=== PATIENT | female | born 1955 | race Caucasian/White ===

== ENCOUNTER 2023-12-17 09:22 | Outpatient (OUT) | payer BC, SELFPAY ==
--- NOTE | 2023-12-17 09:29 | MM_ITS ---
Patient Name: PRANAV KEMP MR#: [id number] : 1955 Exam Date: 12/17/2023 Ordering Doctor: DR KRYS SILVA M.D. RADIOLOGY REPORT PROCEDURE: MM TOMOSYNTHESIS DIAGNOSTIC BI COMPARISON: MG MAMM DIAGNOSTIC 3D ИВАН CAD, 12/11/2021. MG MAMM DX 3D LT CAD, 06/09/2021. MG MAMM SCREEN ИВАН W CAD, 11/07/2020. MG MAMM DIAGNOSTIC 3D ИВАН CAD, 12/16/2022. INDICATIONS: Ductal Carcinoma In Situ Left Breast D05.12 Calculator Name NCI Breast Cancer Risk Assessment Tool 5 Year Breast Cancer Risk 1.90% Lifetime Breast Cancer Risk 5.50% Personal Breast Cancer No Personal Ovarian Cancer No Treatments None Family Cancers Father with stomache cancer at age 92. LOCATION: [facility] BREAST COMPOSITION: Scattered areas fibroglandular density. FINDINGS: DIAGNOSTIC CATEGORY 2--BENIGN FINDING: RIGHT BREAST: No significant suspicious finding. Scattered benign-appearing calcifications are present. No significant change has occurred. LEFT BREAST: No significant suspicious finding. Scattered benign-appearing calcifications are present. Stable scarring anterior subareolar breast. No significant change has occurred. RECOMMENDATIONS: ROUTINE MAMMOGRAM AND CLINICAL EVALUATION IN 12 MONTHS. PLEASE NOTE: A NORMAL MAMMOGRAM DOES NOT EXCLUDE THE POSSIBILITY OF BREAST CANCER. A CLINICALLY SUSPICIOUS PALPABLE LUMP SHOULD BE BIOPSIED. Dictated by: Arcenio Cortez M.D. on 12/17/2023 at 10:13 Approved by: Arcenio Cortez M.D. on 12/17/2023 at 10:17
== END 2023-12-17 09:23 | disposition home or self-care (01) ==
LOC: MAMMO 09:23
PROVIDERS: PCP Family Medicine; Visit Provider Radiology Radiation Oncology
DX: D05.12 Intraductal carcinoma in situ of left breast (principal); Z80.0 Family history of malignant neoplasm of digestive organs
CPT/HCPCS: 77066; G0279

== ENCOUNTER 2024-05-22 16:02 | Outpatient (OUT) | payer BC, SELFPAY ==
--- NOTE | 2024-05-22 16:12 | XR_ITS ---
The [address] [address] Patient Name: PRANAV KEMP MRN: [id number] date: 1955 Sex: F Assigned Patient Location: [facility] Current Patient Location: Accession/Order Number: [id number] Exam Date: 05/22/2024 16:15 Report Date: 05/23/2024 08:28 At the request of: YESICA MCGUIRE Procedure: XR chest 2V EXAMINATION: XR chest 2V HISTORY: chest discomfort R07.89 COMPARISON: 12/16/2020 TECHNIQUE: PA and lateral FINDINGS: LUNGS: No significant pulmonary parenchymal abnormalities. Stable left lung nodule, size and density suggests granulomas VASCULATURE: No increased pulmonary vasculature. PLEURA: No pneumothorax, effusion, or pleural thickening. CARDIAC: No cardiomegaly or cardiac silhouette abnormality. MEDIASTINUM: No visible mass or adenopathy. BONES: Mild degenerative disc disease and spondylosis without visible acute abnormalities. OTHER: Negative. XR/XR chest 2V IMPRESSION: No acute cardiopulmonary process Electronically authenticated by: YO CHAMBERS Date: 05/23/2024 08:28
== END 2024-05-22 16:03 | disposition home or self-care (01) ==
LOC: RAD 16:02
PROVIDERS: PCP Family Medicine; Visit Provider Family Medicine
DX: R07.89 Other chest pain (principal)
CPT/HCPCS: 71046

== ENCOUNTER 2024-09-11 14:59 | Outpatient (OUT) | payer BC, SELFPAY ==
--- NOTE | 2024-09-11 15:11 | XR_ITS ---
The [address] [address] Patient Name: PRANAV KEMP MRN: [id number] date: 1955 Sex: F Assigned Patient Location: [facility] Current Patient Location: Accession/Order Number: [id number] Exam Date: 09/11/2024 15:16 Report Date: 09/14/2024 05:57 At the request of: YESICA MCGUIRE Procedure: XR abdomen 1V EXAMINATION: XR abdomen 1V HISTORY: Left Flank Pain, History Of Renal Calculi COMPARISON: XR abdomen 01/05/2022 FINDINGS: KIDNEY/URETER - RIGHT: No visible renal or ureteral calcifications. KIDNEY/URETER - LEFT: No visible renal or ureteral calcifications. PELVIS: No visible ureteral stones. BOWEL: Large amount of stool throughout the bowel. BONES: No acute abnormality. OTHER: Negative. No abnormal gaseous collections. XR/XR abdomen 1V IMPRESSION: 1. No appreciable urinary tract calculi. 2. Evaluation limited by large amount of dense overlying bowel content. Electronically authenticated by: LAZARUS NAVARRO Date: 09/14/2024 05:57
--- OUTSIDE RECORDS SUMMARY | 2024-09-11 15:25 | XMS_ITS | CCD ---
Author Organization [facility] Care Team Providers Care Rotary Driller Name Role Phone Yesica Mcguire MD Primary Care Provider MD Yesica Mcguire Primary Care Provider Community, Outreach Attending Provider [phone] MD Yesica Mcguire Primary Care Provider MD Chica Duenas Jr Emergency Provider MD Edgar Beebe Admit Provider MD Edgar Beebe Attending Provider Yesica Mcguire MD Primary Care Provider Yesica Mcguire MD Primary Care Provider LASHELL PEÑA Referring Unavailable YEISCA MCGUIRE Primary Care Unavailable RAFAEL LEWIS Attending Unavailable SHARRI JOEL Attending Unavailable Angy Hermosillo Referring Unavailable YESICA MCGUIRE Primary Care Unavailable BISI FARIAS Admitting Unavailable CHICA DUENAS JR Referring Unavailable YESICA MCGUIRE Primary Care Unavailable CLYDE HAZEL Attending UnavailJESSE Maldonado Consulting Unavailable Yesica Mcguire MD Primary Care Provider [phone] [address] YESICA MCGUIRE Primary Care Unavailable MARTÍNEZ JARAMILLO Attending Unavailable CARLOS MURRIETA Consulting UnavailMARTÍNEZ Kohler Admitting Unavailable LAZARUS COELLO Unavailable DR YESICA MCGUIRE Primary Care Unavailable SHIRA, DR KRYS Wilson Consulting Unavailable SHIRA, DR KRYS Wilson Admitting Unavailable SHIRA, DR KRYS Wilson Attending Unavailable MELANIE, DR LAZARUS Elizalde Consulting Unavailable DR YESICA MCGUIRE Admitting Unavailable SHAYLA, DR YESICA Paula Attending Unavailable REDWATER, DR YO Arvizu Consulting Unavailable DR YESICA MCGUIRE Primary Care Unavailable DR YESICA MCGUIRE Consulting Unavailable Yesica Mcguire MD Yesica Mcguire Primary Care Provider Community, Outreach Attending Provider Yesica Mcguire MD Primary Care Provider [phone] YESICA MCGUIRE Primary Care Unavailable STEPHANIE GROVE Referring Unavaila ble STEPHANIE GROVE Attending Unavaila ble YESICA MCGUIRE Primary Care Unavailable ABHYANKAR ANDREA Referring Unavailable ABHYTRES HARGROVEEK Attending Unavailable YESICA MCGUIRE Primary Care Unavailable KRYS SILVA Attending Unavailable YESICA MCGUIRE Primary Care Unavailable KRYS SILVA Referring Unavailable MD Yesica Mcguire Attending Provider Yesica Mcguire Attending Unavailable Yesica Mcguire Admitting Unavailable Community, Outreach Admitting Unavailable Community, Outreach Attending Unavailable Yesica Mcguire Primary Care Unavailable MD Yesica Mcguire Attending Provider Allergies Allergy Classification Reported Allergen(s) Allergy Type Date of Onset Reaction(s) Facility (20 sources) Acetaminophen / Codeine; Translations: [ACETAMINOPHEN-CO DEINE] Drug Allergy 06-03-20 15 Rash, Hives [facility] (20 sources) bacitracin / neomycin / polymyxin b; Translations: [NEOMYCIN-BACITRA JIGNESH-POLYMYXIN] Drug Allergy 02-06-20 21 [facility] (20 sources) Paz; Translations: [BERRIES] Food Intolerance 10-27-19 14 Rash [facility] (20 sources) Cephalexin; Translations: [CEPHALEXIN] Drug Allergy 06-03-20 15 Hives, Itching [facility] (20 sources) ciprofibrate; Translations: [CIPROFIBRATE] Drug Allergy 02-06-20 Unknown [facility] (20 sources) Ciprofloxacin; Translations: [CIPROFLOXACIN] Drug Allergy 06-03-20 15 [facility] (20 sources) Codeine; Translations: [CODEINE] Drug Allergy 02-06-20 21 Unknown [facility] (20 sources) cultivated mushroom extract; Translations: [MUSHROOM] Drug Allergy 06-03-20 15 Rash [facility] (20 sources) grape extract; Translations: [GRAPE] Drug Allergy 06-03-20 GI Upset [facility] (20 sources) Latex; Translations: [LATEX] Drug Intolerance 06-03-20 Hives [facility] (20 sources) montelukast; Translations: [MONTELUKAST] Drug Allergy 02-06-20 21 Unknown [facility] (20 sources) Naproxen; Translations: [NAPROXEN] Drug Allergy 06-03-20 Mental Status Change [facility] (20 sources) peanut; Translations: [PEANUTS] Food Intolerance 06-03-20 Mental Status Change [facility] (20 sources) Procaine; Translations: [PROCAINE] Drug Allergy 06-03-20 Mental Status Change [facility] (20 sources) Shellfish; Translations: [SHELLFISH DERIVED] Drug Intolerance 06-03-20 Mental Status Change [facility] (20 sources) [place]; Translations: [STRAWBERRIES] Food Intolerance 06-03-20 Rash [facility] (20 sources) Sulfonamides (Antibiotic); Translations: [SULFA (SULFONAMIDE ANTIBIOTICS)] Drug Intolerance 06-03-20 Rash, Hives [facility] (20 sources) tree nut, unspecified; Translations: [TREE NUT] Drug Intolerance 06-03-20 Mental Status Change [facility] (20 sources) Triamcinolone; Translations: [TRIAMCINOLONE] Drug Allergy 02-06-20 Unknown [facility] (20 sources) Kenalog-H; Translations: [KENALOG-H] Drug Intolerance 06-03-20 Other: See Comments [facility] (9 sources) peanut allergenic extract; Translations: [peanut] Drug Allergy 06-30-20 Anaphylaxis [facility] (9 sources) strawberry allergenic extract; Translations: [[place]] Drug Allergy 06-30-20 Redness of Skin [facility] (8 sources) Sucralfate Drug Allergy 06-30-20 [facility] (8 sources) peas Allergy to substance 06-30-20 [facility] (8 sources) tuna oil Allergy to substance 06-30-20 Cramping of the Muscles [facility] (2 sources) Cephalexin Drug Allergy 10-24-20 Unknown [facility] (1 source) Ciprofloxacin Drug Allergy 10-24-20 [facility] (1 source) Codeine Drug Allergy 11-19-19 21 [facility] (1 source) Latex Drug allergy (disorder) 10-24-20 18 [facility] (1 source) Mushroom (edible) Drug allergy (disorder) [facility] (1 source) Naproxen Drug Allergy [facility] (1 source) Shellfish Drug allergy (disorder) 10-24-20 18 [facility] (1 source) Sucralfate Drug Allergy [facility] (1 source) Sulfonamides (Antibiotic) Drug allergy (disorder) 10-24-20 18 [facility] (1 source) Novocain Drug allergy (disorder) 10-24-20 18 [facility] (1 source) Acetaminophen / Codeine Drug Allergy Unknown [facility] (1 source) Bacitracin / Neomycin / Polymyxin B Drug Allergy Unknown [facility] (8 sources) Paz Propensity to adverse reactions 04-10-20 Unknown, [facility] (1 source) tree nut, unspecified Drug allergy Comment:peanut s [facility] Other (1 source) Singulair *ANTIASTHMATIC AND BRONCHODILATOR AGENTS Propensity to adverse reactions Unknown [facility] (1 source) Peanut-containing Drug Products Drug allergy 10-27-19 14 Unknown [facility] (1 source) Tylenol with Codeine #3 *ANALGESICS - OPIOID* Propensity to adverse reactions Unknown [facility] (1 source) Keflex *CEPHALOSPORINS* Propensity to adverse reactions Unknown [facility] (1 source) WALNUTS Propensity to adverse reactions Unknown [facility] (7 sources) Acetaminophen Drug Allergy 04-10-20 24 [facility] (7 sources) Bacitracin Drug Allergy 04-10-20 24 [facility] (7 sources) Cephalosporins (Antibiotic) Allergy to substance 04-10-20 [facility] (7 sources) Neomycin Drug Allergy 04-10-20 24 [facility] (7 sources) polymyxin B Allergy to substance 04-10-20 24 [facility] (7 sources) walnut Allergy to substance 04-10-20 24 [facility] (7 sources) Neosporin Original Allergy to substance 04-10-20 24 [facility] (7 sources) Singulair *ANTIASTHMATIC AND B Allergy to substance 04-10-20 24 [facility] (7 sources) Tylenol with Codeine #3 *ANALG Allergy to substance 04-10-20 24 [facility] Medications Current Medications Medication Drug Class(es) Dates Sig (Normalized) Sig (Original) acetaminophen 325 mg oral tablet (15 sources) Start: 07-02-2022 take 2 tablets by mouth every six hours as needed acetaminophen (TYLENOL) 325 mg tablet Take 2 tablets by mouth every 6 hours as needed for pain. 07/02/2022 Active Comment on above: Take 2 tablets by mo uth every 6 hours as needed for pain. Albuterol (20 sources) beta2-Adrenergic Agonist Start: 04-10-2024 take 1 puff(s) by inhalation every four to six hours Albuterol Sulfate Active 2 PUFF INHALATION EVERY 4-6 HOURS 6.7 April 09, 2024 11:00pm Start: 04-10-2024 take 1 puff(s) by in halation every four to six hours Albuterol Sulfate Active 2 PUFF INHALATION EVERY 4-6 HOURS 6.7 April 10, 2024 12:00am Start: 08-29-2020 albuterol HFA (PROVENTIL HFA, VENTOLIN HFA) 90 mcg/actuation inhaler Inhale as instructed. 08/29/2020 Active Comment on above: Inhale as instructed . azithromycin 250 mg oral tablet (16 sources) Macrolide Antimicrobial Start: 04-21-2024 End: 08-22-2024 Azithromycin Active 0 PO .COMPLEX August 22, 2024 3:25pm For 250 mg dose pack: take 500 mg today (day 1), then 250 mg for 4 days (days 2-5) PO Start: 04-10-2024 End: 04-21-2024 Azithromycin Discontinued 0 PO .COMPLEX 6 Ayah 16th, 2024 11:00pm April 21, 2024 10:51am For 250 mg dose pack: take 500 mg today (day 1), then 250 mg for 4 days (days 2-5) PO Start: 04-10-2024 End: 04-21-2024 Azithromycin Discontinued 0 PO .COMPLEX April 10, 2024 12:00am April 21, 2024 11:51am For 250 mg dose pack: take 500 mg today (day 1), then 250 mg for 4 days (days 2-5) PO Start: 04-10-2024 Azithromycin A ctive 0 PO .COMPLEX April 10, 2024 12:00am For 250 mg dose pack: take 500 mg today (day 1), then 250 mg for 4 days (days 2-5) PO Loratadine (20 sources) loratadine (CLAR ITIN ORAL) Take by mouth. Active loratadine (CLAR ITIN ORAL) Take by mouth. 0 Suspended loratadine (CLAR ITIN ORAL) Take by mouth. 0 Active Comment on above: Take by mouth. nitrofurantoin, macrocrystals 25 mg / nitrofurantoin, monohydrate 75 mg oral capsule (3 sources) Nitrofuran Antibacterial Start: take 100 mg by mouth every twelve hours at mealtime Nitrofurantoin Monohyd/M-Cryst Active 100 MG PO Every 12 hours 10 August 14, 2024 11:00pm must administer with a meal/food phenylephrine hydrochloride 25 mg/ml ophthalmic solution (1 source) alpha-1 Adrenergic Agonist Start: End: PHENYLephrine 2.5 % 1 Drop (AK-DILATE, LETY-SYNEPHRINE) tamoxifen 20 mg oral tablet (20 sources) Estrogen Agonist/Antagonist Start: End: take 20 mg by mouth once daily Tamoxifen Active 20 MG PO Daily June 30, 2022 11:00pm Comment on above: Take 1 tablet (20 mg ) by mouth once daily. tropicamide 10 mg/ml ophthalmic solution (2 sources) Anticholinergic Start: End: tropicamide 1 % 1 Drop (MYDRIACYL) Start: 01-23-2022 End: 01-24-2022 tropicamide 1 % 1 Drop (MYDR IACYL) Completed/Discontinued Medications Medication Drug Class(es) Dates Sig (Normalized) Sig (Original) losartan potassium 25 mg oral tablet (20 sources) Angiotensin 2 Receptor Luda Start: 10-13-2021 End: 04-10-2024 take 25 mg by mouth once daily Losartan Discontinued 25 MG PO Daily June 30, 2022 11:00pm April 10, 2024 2:05pm Comment on above: Take 25 mg by mouth once daily. oxyCODONE hydrochloride 5 mg oral tablet (1 source) Opioid Agonist Start: 07-04-2022 End: 07-17-2022 take 1 tablet by mouth every eight hours as needed for pain oxyCODONE IR (ROXICODONE) 5 mg immediate release tablet Indications: Postoperative pain Take 1 tablet by mouth every 8 hours as needed for pain. 5 tablet 0 07/04/2022 07/17/2022 Discontinued (Course of therapy completed) Comment on above: Take 1 tablet by juliet th every 8 hours as needed for pain. pantoprazole 40 mg delayed release oral tablet (20 sources) Proton Pump Inhibitor Start: 09-09-2022 End: 04-10-2024 take 1 tablet by mouth once daily Pantoprazole Discontinued 1 TAB PO Daily April 09, 2024 11:00pm April 10, 2024 2:05pm [employer] tablet once a day; Note: Source Status: Refill; Refills: 3; Provider: Shayla Paula Start: 07-04-2022 End: 10-02-2022 take 1 tablet by mouth twice daily before mealtime pantoprazole DR (PROTONIX) 40 mg tablet Take 1 tablet by mouth twice daily before meals (0600/1600). 60 tablet 2 07/04/2022 10/02/2022 Active Comment on above: Take 1 tablet by juliet th twice daily before meals (0600/1600). Take 1 tablet by juliet th once daily. Problems Active Problems Problem Classification Problem Date Documented Da te Episodic/Chronic Biliary tract disease (13 sources) Calculus of bile duct with cholecystitis; Translations: [Calculus of bile duct with cholecystitis, unspecified, without obstruction] Onset: 2 Resolved: 2 07-01-2022 Episodic Blindness and vision defects (2 sources) Bilateral hyperopia of eyes; Translations: [Hypermetropia, bilateral] 07-30-2023 Episodic Cancer of breast (15 sources) Malignant neoplasm of female breast; Translations: [Malignant neoplasm of unspecified site of left female breast] Onset: 3 Chronic Cataract (20 sources) Nuclear sclerosis; Translations: [Age-related nuclear cataract, bilateral] Onset: 5 06-03-2015 Chronic Esophageal disorders (11 sources) Gastroesophageal reflux disease without esophagitis; Translations: [Gastro-esophageal reflux disease without esophagitis] Chronic Esophageal disorders (2 sources) Esophagitis; Translations: [Esophagitis] Onset: 2 Episodic Essential hypertension (9 sources) Essential hypertension; Translations: [Essential (primary) hypertension] 04-10-2024 Chronic Glaucoma (20 sources) Anatomical narrow angle, bilateral; Translations: [Anatomical narrow angle borderline glaucoma] Onset: 5 06-03-2015 Chronic Nonspecific chest pain (7 sources) Chest discomfort; Translations: [Other chest pain] 05-22-2024 Episodic Other aftercare (4 sources) Long-term current use of tamoxifen; Translations: [senior living (current) use of selective estrogen receptor modulators (SERMs)] Episodic Other aftercare (2 sources) Patient encounter status; Translations: [Other retirement (current) drug therapy] Episodic Other aftercare (1 source) Long-term current use of drug therapy; Translations: [Other hide washer (current) drug therapy] 07-31-2024 Episodic Other circulatory disease (1 source) Elevated blood pressure; Translations: [Elevated blood-pressure reading, without diagnosis of hypertension] Episodic Other gastrointestinal disorders (1 source) Abnormal feces; Translations: [Other fecal abnormalities] Episodic Other nervous system disorders (1 source) Other acute postprocedural pain; Translations: [Postoperative pain] Onset: 2 Episodic Other nutritional; endocrine; and metabolic disorders (15 sources) Obese class I; Translations: [Obesity, unspecified] Onset: 2 07-03-2022 Chronic Other upper respiratory infections (10 sources) Acute maxillary sinusitis; Translations: [Acute maxillary sinusitis, unspecified] 04-10-2024 Episodic Phlebitis; thrombophlebitis and thromboembolism (1 source) Thrombophlebitis of superficial veins of lower extremity; Translations: [Phlebitis and thrombophlebitis of superficial vessels of left lower extremity] Episodic Rehabilitation care; fitting of prostheses; and adjustment of devices (2 sources) Patient encounter status; Translations: [Encounter for fitting and adjustment of other specified devices] Onset: 2 Chronic Residual codes; unclassified (3 sources) History of wnofmes-dejqxuop-ubnsl t laser iridotomy; Translations: [Other specified postprocedural states] Episodic Residual codes; unclassified (1 source) Family history of malignant neoplasm of digestive organs; Translations: [FAM HX MALIG NEOPLASM DIGESTIV ORGN] Onset: 3 Episodic Residual codes; unclassified (1 source) Family history of diabetes mellitus; Translations: [Family history of diabetes mellitus] Episodic Retinal detachments; defects; vascular occlusion; and retinopathy (1 source) Hypertensive retinopathy; Translations: [Hypertensive retinopathy, left eye] Chronic Urinary tract infections (6 sources) Urinary tract infectious disease; Translations: [Urinary tract infection, site not specified] 08-22-2024 Episodic Past or Other Problems Problem Classification Problem Date Documented Date Episodic/Chronic Abdominal pain (4 sources) Unspecified abdominal pain; Translations: [UNSPECIFIED ABDOMINAL PAIN] Onset: 01-05-2022 Episodic Disorders of teeth and jaw (3 sources) Jaw pain; Translations: [JAW PAIN] Onset: 08-18-2022 Episodic E Codes: Fall (1 source) Fall on same level from slipping, tripping and stumbling without subsequent striking against object, initial encounter; Translations: [FALL SAME LVL SLIP NO STRK OBJ INIT] Onset: 08-31-2022 Episodic Fluid and electrolyte disorders (15 sources) Hypokalemia; Translations: [Hypokalemia] Onset: 07-03-2022 07-03-2022 Episodic Other aftercare (1 source) Other hide washer (current) drug therapy; Translations: [OTH HALF-WAY CURRENT DRUG THERAPY] Onset: 08-31-2022 Episodic Residual codes; unclassified (18 sources) History of surgical procedure on eye proper using laser; Translations: [Other specified postprocedural states] Onset: 06-03-2015 06-03-2015 Episodic Residual codes; unclassified (3 sources) Other specified postprocedural states; Translations: [Other states following surgery of eye and adnexa] Onset: 06-03-2015 06-03-2015 Episodic Superficial injury; contusion (2 sources) Contusion of other part of head, initial encounter; Translations: [Contusion of lip, initial encounter] Onset: 08-31-2022 Episodic Results Test Name Value Interpretation Reference Range Facility Laboratory - Chemistry and C hemistry - challengeon 08-22-2024 Bilirubin Ql (U) Negative [facility] Glucose (U) [Mass/Vol] Negative Fi [facility] Ketones Ql (U) Negative [facility] pH (U) 5 [pH] [facility] Specific gravity (U) [Rel density] 1.000 [facility] Urobilinogen (U) [Mass/Vol] 0.2 mg/dL [facility] Laboratory - Microbiology an d Antimicrobial susceptibilityOrdered By: Yesica Mcguire on 08-22-2024 Bacteria identified Cx Nom (U) Strep agalactiae - (group b) Abnormal [facility] Laboratory - Specimen inform ationon 08-22-2024 Appearance (U) clear [facility] Color (U) yellow [facility] Laboratory - Urinalysison Leukocyte esterase Test strip Ql (U) ++ [facility] Nitrite Ql (U) Negative [facility] Protein Ql (U) Negative [facility] No Panel Informationon 08-22 Urine Occult Blood Negative [facility] Urine Cultureon 08-22-2024 Bacteria identified Cx Nom (U) ORGANISM: Strep agalactiae - (group b) (O:STRAGA) [place] Count 75,000 Organism Comments Organism not Routinely Tested for Susceptibilities PERFORMED BY: [facility] [address] [place] [address] PATHOLOGIST MINERAL SURVEYOR KAREN RATLIFF M.D. Normal [facility] Comment on above: Performed By: #### C UU #### [facility] [address] Laboratory - Chemistry and C hemistry - challengeon 08-15-2024 Bilirubin Ql (U) Negative [facility] Glucose (U) [Mass/Vol] Negative [facility] Ketones Ql (U) Negative [facility] pH (U) 5 [pH] [facility] Specific gravity (U) [Rel density] 1.005 [facility] Urobilinogen (U) [Mass/Vol] 0.2 mg/dL [facility] Laboratory - Specimen inform ationon 08-15-2024 Appearance (U) cloudy [facility] Color (U) yellow [facility] Laboratory - Urinalysison Leukocyte esterase Test strip Ql (U) ++ [facility] Nitrite Ql (U) Negative [facility] Protein Ql (U) Negative [facility] No Panel Informationon 08-15 Urine Occult Blood Negative [facility] OCT MACULA CIRRUS OU (BOTH E YES)on 07-31-2024 [facility] Radiology Study observation (narrative) [facility] Basophils Auto (Bld) [#/Vol] on 07-28-2024 Basophils (Bld) [#/Vol] 0.08 10*3/uL <0.11 [facility] Basophils/100 WBC Auto (Bld) on 07-28-2024 Basophils/100 WBC (Bld) 1.1 % F [facility] Blood manual differential co mment interpretation narrativeon 07-28-2024 Manual differential comment Spike (Bld) [Interp] Auto [facility] CBC W Auto Differential pane l (Bld)on 07-28-2024 Basophils (Bld) [#/Vol] 0.08 10*3/uL Normal <0.11 [facility] Comment on above: Order Comment: Speci men Type: BLOOD SPECIMEN Ordering Facility: [facility] Address: [address] [place] [address] Performed By: #### 5 7021-8 #### [facility] CLIA [id number] [address] [place] [address] Basophils/100 WBC (Bld) 1.1 % Normal C [facility] Comment on above: Order Comment: Speci men Type: BLOOD SPECIMEN Ordering Facility: [facility] Address: [address] [place] [address] Performed By: #### 5 7021-8 #### [facility] CLIA [id number] [address] [place] [address] Differential cell count method Nom (Bld) Auto Normal [facility] Comment on above: Order Comment: Speci men Type: BLOOD SPECIMEN Ordering Facility: [facility] Address: [address] [place] [address] Performed By: #### 5 7021-8 #### [facility] CLIA [id number] [address] [place] [address] Eosinophils (Bld) [#/Vol] 0.23 10*3/uL Normal <0.46 [facility] Comment on above: Order Comment: Speci men Type: BLOOD SPECIMEN Ordering Facility: [facility] Address: [address] [place] [address] Performed By: #### 5 7021-8 #### [facility] CLIA [id number] [address] [place] [address] Eosinophils/100 WBC (Bld) 3.2 % Normal [facility] Comment on above: Order Comment: Speci men Type: BLOOD SPECIMEN Ordering Facility: [facility] Address: [address] [place] [address] Performed By: #### 5 7021-8 #### [facility] CLIA [id number] [address] [place] [address] Erythrocyte distribution width (RBC) [Ratio] 12.7 % Normal 11.5-15.0 [facility] Comment on above: Order Comment: Speci men Type: BLOOD SPECIMEN Ordering Facility: [facility] Address: [address] [place] [address] Performed By: #### 5 7021-8 #### [facility] CLIA [id number] [address] [place] [address] Hematocrit (Bld) [Volume fraction] 35.5 % Low 36.0-46.0 [facility] Comment on above: Order Comment: Speci men Type: BLOOD SPECIMEN Ordering Facility: [facility] Address: [address] [place] [address] Performed By: #### 5 7021-8 #### [facility] CLIA [id number] [address] [place] [address]27 Hemoglobin (Bld) [Mass/Vol] 12.0 g/dL Normal 11.5-15.5 [facility] Comment on above: Order Comment: Speci men Type: BLOOD SPECIMEN Ordering Facility: [facility] Address: [address] [place] [address] Performed By: #### 5 7021-8 #### [facility] CLIA [id number] [address] [place] [address] Immature granulocytes (Bld) [#/Vol] 10*3/uL Normal <0.10 [facility] Comment on above: Order Comment: Speci men Type: BLOOD SPECIMEN Ordering Facility: [facility] Address: [address] [place] [address] Performed By: #### 5 7021-8 #### [facility] CLIA [id number] [address] [place] [address] Immature granulocytes/100 WBC (Bld) 0.3 % Normal [facility] Comment on above: Order Comment: Speci men Type: BLOOD SPECIMEN Ordering Facility: [facility] Address: [address] [place] [address] Performed By: #### 5 7021-8 #### [facility] CLIA [id number] [address] [place] [address] 68455 Lymphocytes (Bld) [#/Vol] 2.14 10*3/uL Normal 1.00-4.00 [facility] Comment on above: Order Comment: Speci men Type: BLOOD SPECIMEN Ordering Facility: [facility] Address: [address] [place] [address] Performed By: #### 5 7021-8 #### [facility] CLIA [id number] [address] [place] [address] 57048 Lymphocytes/100 WBC (Bld) 29.9 % Normal [facility] Comment on above: Order Comment: Speci men Type: BLOOD SPECIMEN Ordering Facility: [facility] Address: [address] [place] [address] Performed By: #### 5 7021-8 #### [facility] CLIA [id number] [address] [place] [address] 43742 MCH (RBC) [Entitic mass] 31.3 pg Normal 26.0-34.0 [facility] Comment on above: Order Comment: Speci men Type: BLOOD SPECIMEN Ordering Facility: [facility] Address: [address] [place] [address] Performed By: #### 5 7021-8 #### [facility] CLIA [id number] [address] [place] [address] 27719 MCHC (RBC) [Mass/Vol] 33.8 g/dL Normal 30.5-36.0 [facility] Comment on above: Order Comment: Speci men Type: BLOOD SPECIMEN Ordering Facility: [facility] Address: [address] [place] [address] Performed By: #### 5 7021-8 #### [facility] CLIA [id number] [address] [place] [address] 48906 MCV (RBC) [Entitic vol] 92.7 fL Normal 80.0-100.[address] [facility] Comment on above: Order Comment: Speci men Type: BLOOD SPECIMEN Ordering Facility: [facility] Address: [address] [place] [address] Performed By: #### 5 7021-8 #### [facility] CLIA [id number] [address] [place] [address] 74061 Monocytes (Bld) [#/Vol] 0.50 10*3/uL Normal <0.87 [facility] Comment on above: Order Comment: Speci men Type: BLOOD SPECIMEN Ordering Facility: [facility] Address: [address] [place] [address] Performed By: #### 5 7021-8 #### [facility] CLIA [id number] [address] [place] [address] Monocytes/100 WBC (Bld) 7.0 % Normal [facility] Comment on above: Order Comment: Speci men Type: BLOOD SPECIMEN Ordering Facility: [facility] Address: [address] [place] [address] Performed By: #### 5 7021-8 #### [facility] CLIA [id number] [address] [place] [address] 55719 Neutrophils (Bld) [#/Vol] 4.18 10*3/uL Normal 1.45-7.50 [facility] Comment on above: Order Comment: Speci men Type: BLOOD SPECIMEN Ordering Facility: [facility] Address: [address] [place] [address] Performed By: #### 5 7021-8 #### [facility] CLIA [id number] [address] [place] [address] 75839 Neutrophils/100 WBC (Bld) 58.5 % Normal [facility] Comment on above: Order Comment: Speci men Type: BLOOD SPECIMEN Ordering Facility: [facility] Address: [address] [place] [address] Performed By: #### 5 7021-8 #### [facility] CLIA [id number] [address] [place] [address] 00389 Nucleated RBC (Bld) [#/Vol] 10*3/uL Normal <0.01 [facility] Comment on above: Order Comment: Speci men Type: BLOOD SPECIMEN Ordering Facility: [facility] Address: [address] [place] [address] Performed By: #### 5 7021-8 #### [facility] CLIA [id number] [address] [place] [address] 72318 Nucleated RBC/100 WBC (Bld) [Ratio] 0.0 /100 WBC Normal [facility] Comment on above: Order Comment: Speci men Type: BLOOD SPECIMEN Ordering Facility: [facility] Address: [address] [place], [place] [address] Performed By: #### 5 7021-8 #### [facility] CLIA [id number] [address] [place] [address] 19750 Platelet mean volume (Bld) [Entitic vol] 9.2 fL Normal 9.0-12.7 [facility] Comment on above: Order Comment: Speci men Type: BLOOD SPECIMEN Ordering Facility: [facility] Address: [address] [place] [address] Performed By: #### 5 7021-8 #### [facility] CLIA [id number] [address] [place] [address] 18568 Platelets (Bld) [#/Vol] 325 10*3/uL Normal 150-400 [facility] Comment on above: Order Comment: Speci men Type: BLOOD SPECIMEN Ordering Facility: [facility] Address: [address] [place] [address] Performed By: #### 5 7021-8 #### [facility] CLIA [id number] [address] [place] [address] 63417 RBC (Bld) [#/Vol] 3.83 10*6/uL Low 3.90-5.20 [facility] Comment on above: Order Comment: Speci men Type: BLOOD SPECIMEN Ordering Facility: [facility] Address: [address] [place] [address] Performed By: #### 5 7021-8 #### [facility] CLIA [id number] [address] [place] [address] 57661 WBC (Bld) [#/Vol] 7.15 10*3/uL Normal 3.70-11.00 [facility] Comment on above: Order Comment: Speci men Type: BLOOD SPECIMEN Ordering Facility: [facility] Address: [address] [place] [address] Performed By: #### 5 7021-8 #### [facility] CLIA [id number] [address] [place] [address]32 CNOVSPon 07-28-2024 CNOVSP Visit (SP) Office ([place]) PRANAV KEMP ([id number]) 1955 F Date Time Provider Department 07/28/24 3:15 PM ANDREA MILLER During your visit today, we recorded the following information about you: Temperature Pulse Respiration Blood pressure 97.8 degrees 86/minute 18/minute 170/74 Weight 76.9 kg Lyndsey Hercules APRN.ACCOUNTING GENERALIST 07/28/2024 4:25 PM Signed NAME: Pranav Kemp CLINIC NO.: [id number] DATE OF SERVICE: 07/28/2024 (David) Some elements in this clinic note that are critical to medical decision making have been carefully reviewed and included from a prior clinic note dated: July 02, 2023 (Ester) Referring Provider: Jevon Patterson Additional Clinicians involved in Pranav Kemp's care: Dr. Silva, Carolina Cope CC: Follow-up for breast cancer. 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 Initial diagnosis 2020-11-25, left breast lumpectomy 2020-12-25. ER/NV both strongly positive grade 2, cribriform pattern. She has completed radiation and is on hormone suppression. PLAN: RTC with me in 12 months with labs and exam same day. Schedule Mammograms for November 2024 (Dr. Silva ordered) Continue Tamoxifen through 03/2026 - HPI: CASE HISTORY: Reverse Chronological Order 12/17/2023 - Diagnostic Mammogram: No significant suspicious finding. Scattered benign-appearing calcifications are present. No significant change has occurred. BIRADS: 2: Benign 04/02/2021-Current - Tamoxifen anticipated for 5 years. 02/24/2021-03/25/2021 - Left breast radiation 4256 cGy in 16 fractions with boost of 1000 cGy in 4. 01/21/2021 - Left breast lumpectomy. Updated Visit, July 28, 2024: Pranav returns today with her Cash. Doing well with the tamoxifen. Labs reviewed and without any clinically significant abnormalities. Denies hot flashes. Has vaginal dryness. Some dyspareunia, information given on non-hormonal lubricants. Denies bowel or bladder issues. Going to the zoo with her grand-kids this weekend. Updated Visit, June 30, 2023: Pranav returns with Cash - grand-kids (adoptive) are having major issues creating stress for the family. She is otherwise doing well and tolerating tamoxifen. Labs reviewed and are without any clinically significant abnormalities. Updated Visit, December 23, 2022: 12/16/2022 Mammogram : Cat 2 - benign. June 2022 - Cholecystectomy Labs stable No other issues - Dr. Silva examined her today and will see her in 1 year. Cash accompanying her. Sees her ophthalmology end of the month. Updated Visit, May 22, 2022: Continues to do very well with tolerance to Tamoxifen. Rash on abdomen - pale and slightly pinkish. She states she gets these often. And right forearm Mammography from November noted to be benign. Updated Visit, November 13, 2021: Pranav returns with her Cash, she is doing well on current chemoprevention endocrine therapy with tolerable AE's. Mammogram of left breast will be due in 1 month., She is concerned with Tamoxifen and ophthalmologic changes which Dr. Cope is evaluating. Updated Visit, August 14, 2021: Pranav returns with her Cash for left breast DCIS. In May she had her left diagnostic mammogram which was diagnostic category 3 with changes likely consistent with postsurgical and radiation changes. The recommended follow up mammogram in 6 months. Chaperoned Breast Exam showed typical radiation changes on left. Right breast is normal. Aside from occasional hot flashes, she is tolerating tamoxifen well. Updated Visit, May 14, 2021: Neris is 65 years old and returns specimen Cash for follow-up on tamoxifen in the adjuvant setting for DCIS. She still has some irritation in her left axilla and also has intermittent arthralgias but only last a day or 2. She is otherwise without complaints. She very kindly brought in some of her famous chocolate chip oatmeal cookies. Updated Visit, April 02, 2021: Pranav returns after completing RT on 03/25/2021 for left breast DCIS s/p resection 12/25/2020. We discussed adjuvant endocrine therapy with regards to AI or SERM. She will start on Tamoxifen. History of varicose veins - discussed potential for DVT's. Discussed risk of uterine Ca but she has had a hysterectomy. Initial Visit, February 05, 2021: Pranav Kemp presents today Hematology and Oncology evaluation. She is a 65 year old female who is here with Cash for a recent diagnosis and resection of a left breast DCIS with lumpectomy. Found left breast mass on routine mammographyof health screening. In October 2020. On 2020-11-19 she underwent a left diagnostic digital mammogram and ultrasound. This was followed by an ultrasound guided biopsy of the left mauricio (more content not included)... Normal [facility] Comprehensive metabolic 2000 panelon 07-28-2024 Albumin [Mass/Vol] 3.9 g/dL Normal 3.9-4.9 [facility] Comment on above: Order Comment: Speci men Type: BLOOD SPECIMEN Ordering Facility: [facility] Address: [address] [place] [address] Performed By: #### 2 4323-8 #### [facility] CLIA [id number] [address] [place] [address] 38613 ALP [Catalytic activity/Vol] 54 U/L Normal 34-123 [facility] Comment on above: Order Comment: Speci men Type: BLOOD SPECIMEN Ordering Facility: [facility] Address: [address] [place] [address] Performed By: #### 2 4323-8 #### [facility] CLIA [id number] [address] [place] [address] ALT [Catalytic activity/Vol] 8 U/L Normal 7-38 [facility] Comment on above: Order Comment: Speci men Type: BLOOD SPECIMEN Ordering Facility: [facility] Address: [address] [place] [address] Performed By: #### 2 4323-8 #### [facility] CLIA [id number] [address] [place] [address] Anion gap [Moles/Vol] 8 mmol/L Normal 8-15 [facility] Comment on above: Order Comment: Speci men Type: BLOOD SPECIMEN Ordering Facility: [facility] Address: [address] [place] [place] [id number] Performed By: #### 2 4323-8 #### [facility] CLIA [id number] [address] [place] [address] 66114 AST [Catalytic activity/Vol] 12 U/L Low 13-35 [facility] Comment on above: Order Comment: Speci men Type: BLOOD SPECIMEN Ordering Facility: [facility] Address: [address] [place], [place] [address] Performed By: #### 2 4323-8 #### [facility] CLIA [id number] [address] [place] [address]39 Bilirubin [Mass/Vol] 0.3 mg/dL Normal 0.2-1.3 [facility] Comment on above: Order Comment: Speci men Type: BLOOD SPECIMEN Ordering Facility: [facility] Address: [address] [place] [address] Performed By: #### 2 4323-8 #### [facility] CLIA [id number] [address] [place] [address] Calcium [Mass/Vol] 9.1 mg/dL Normal 8.5-10.2 [facility] Comment on above: Order Comment: Speci men Type: BLOOD SPECIMEN Ordering Facility: [facility] Address: [address] [place] [id number] Performed By: #### 2 4323-8 #### [facility] CLIA [id number] [address] [place] [address] Chloride [Moles/Vol] 104 mmol/L Normal 98-107 [facility] Comment on above: Order Comment: Speci men Type: BLOOD SPECIMEN Ordering Facility: [facility] Address: [address] [place], [place] [address] Performed By: #### 2 4323-8 #### [facility] CLIA [id number] [address] [place] [address] CO2 [Moles/Vol] 27 mmol/L Normal 22-30 [facility] Comment on above: Order Comment: Speci men Type: BLOOD SPECIMEN Ordering Facility: [facility] Address: [address] [place] [address] Performed By: #### 2 4323-8 #### [facility] CLIA [id number] [address] [place] [address] 16451 Creatinine [Mass/Vol] 0.94 mg/dL Normal 0.58-0.96 [facility] Comment on above: Order Comment: Speci men Type: BLOOD SPECIMEN Ordering Facility: [facility] Address: [address] [place] [address] Performed By: #### 2 4323-8 #### [facility] CLIA [id number] [address] [place] [address]697 Creatinine and Glomerular filtration rate.predicted panel (S/P/Bld) 65 mL/min/1.73m??? Normal >=60 [facility] Comment on above: Order Comment: Speci men Type: BLOOD SPECIMEN Ordering Facility: [facility] Address: [address] [place] [address] Result Comment: Yaneth mated Glomerular Filtration Rate (eGFR) is calculated using the 2020 CKD-EPI creatinine equation. This equation utilizes serum creatinine, sex, and age as parameters. The creatinine assay has traceable calibration to isotope dilution-mass spectrometry. Refer to KDIGO guidelines for clinical interpretation. In patients with unstable renal function, e.g. those with acute kidney injury, the eGFR may not accurately reflect actual GFR. Performed By: #### 2 4323-8 #### [facility] CLIA [id number] [address] [place] [address] Glucose [Mass/Vol] 99 mg/dL Normal 74-99 [facility] Comment on above: Order Comment: [address] Type: BLOOD SPECIMEN Ordering Facility: [facility] Address: [address] [place] [address] Result Comment: The [place] Diabetes Association (ADA) provides guidance for cutoff values for fasting glucose and random glucose. The ADA defines fasting as no caloric intake for at least 8 hours. Fasting plasma glucose results between 100 to 125 mg/dL indicate increased risk for diabetes (prediabetes). Fasting plasma glucose results greater than or equal to 126 mg/dL meet the criteria for diagnosis of diabetes. In the absence of unequivocal hyperglycemia, results should be confirmed by repeat testing. In a patient with classic symptoms of hyperglycemia or hyperglycemic crisis, random plasma glucose results greater than or equal to 200 mg/dL meet the criteria for diagnosis of diabetes. Reference: Standards of Medical Care in Diabetes 2016, [place] [employer]. Diabetes Care. 2016.39(Suppl 1). Performed By: #### 2 4323-8 #### [facility] CLIA [id number] [address] [place] [address] Potassium [Moles/Vol] 4.0 mmol/L Normal 3.7-5.1 [facility] Comment on above: Order Comment: [address] Type: BLOOD SPECIMEN Ordering Facility: [facility] Address: [address] [place] [address] Performed By: #### 2 4323-8 #### [facility] CLIA [id number] [address] [place] [address] 84273 Protein [Mass/Vol] 6.7 g/dL Normal 6.3-8.0 [facility] Comment on above: Order Comment: [address] Type: BLOOD SPECIMEN Ordering Facility: [facility] Address: [address] [place] [address] Performed By: #### 2 4323-8 #### [facility] CLIA [id number] [address] [place] [address] Sodium [Moles/Vol] 139 mmol/L Normal 136-144 [facility] Comment on above: Order Comment: Speci men Type: BLOOD SPECIMEN Ordering Facility: [facility] Address: [address] [place] [address] Performed By: #### 2 4323-8 #### [facility] CLIA [id number] [address] [place] [address] Urea nitrogen [Mass/Vol] 10 mg/dL Normal 7-21 [facility] Comment on above: Order Comment: Speci men Type: BLOOD SPECIMEN Ordering Facility: [facility] Address: [address] [place] [address] Performed By: #### 2 4323-8 #### [facility] CLIA [id number] [address] [place] [address] 20279 Eosinophils/100 WBC Auto (Bl d)on 07-28-2024 Eosinophils/100 WBC (Bld) 3.2 % [facility] Erythrocyte distribution wid th Auto (RBC) [Ratio]on 07-28-2024 Erythrocyte distribution width (RBC) [Ratio] 12.7 % 11.5-15.0 [facility] Hematocrit Auto (Bld) [Volum e fraction]on 07-28-2024 Hematocrit (Bld) [Volume fraction] 35.5 % Low 36.0-46.0 [facility] Hemoglobin [Mass/volume] in Bloodon 07-28-2024 Hemoglobin (Bld) [Mass/Vol] 12.0 g/dL 11.5-15.5 [facility] Laboratory - Chemistry and C hemistry - challengeon 07-28-2024 Albumin [Mass/Vol] 3.9 g/dL 3.9-4.9 [facility] ALP [Catalytic activity/Vol] 54 U/L 34-123 [facility] ALT [Catalytic activity/Vol] 8 U/L 7-38 [facility] AST [Catalytic activity/Vol] 12 U/L Low 13-35 [facility] Bilirubin [Mass/Vol] 0.3 mg/dL 0.2-1.3 [facility] Calcium [Mass/Vol] 9.1 mg/dL 8.5-10.2 [facility] Chloride [Moles/Vol] 104 mmol/L 98-107 [facility] CO2 [Moles/Vol] 27 mmol/L 22-30 [facility] Creatinine [Mass/Vol] 0.94 mg/dL 0.58-0.96 [facility] Glucose [Mass/Vol] 99 mg/dL 74-99 [facility] Comment on above: The [place] Diab[employer] s Association (ADA) provides guidance for cutoff values for fasting glucose and random glucose. The ADA defines fasting as no caloric intake for at least 8 hours. Fasting plasma glucose results between 100 to 125 mg/dL indicate increased risk for diabetes (prediabetes).Fasting plasma glucose results greater than or equal to 126 mg/dL meet the criteria for diagnosis of diabetes. In the absence of unequivocal hyperglycemia, results should be confirmed by repeat testing. In a patient with classic symptoms of hyperglycemia or hyperglycemic crisis, random plasma glucose results greater than or equal to 200 mg/dL meet the criteria for diagnosis of diabetes.Reference: Standards of Medical Care in Diabetes 2016, [place] [employer]. Diabetes Care. 2016.39(Suppl 1). Potassium [Moles/Vol] 4.0 mmol/L 3.7-5.1 [facility] Sodium [Moles/Vol] 139 mmol/L 136-144 [facility] Urea nitrogen [Mass/Vol] 10 mg/dL 7- [facility] Laboratory - Hematology and Cell countson 07-28-2024 Eosinophils (Bld) [#/Vol] 0.23 10*3/uL <0.46 [facility] Immature granulocytes/100 WBC (Bld) 0.3 % [facility] Leukocytes [#/volume] correc zara for nucleated erythrocytes in Blood by Automated counon 07-28-2024 WBC corrected for nucl RBC Auto (Bld) [#/Vol] 7.15 k/uL 3.70-11.00 [facility] Lymphocytes Auto (Bld) [#/Vo l]on 07-28-2024 Lymphocytes (Bld) [#/Vol] 2.14 10*3/uL 1.00-4.00 [facility] Lymphocytes/100 WBC Auto (Bl d)on 07-28-2024 Lymphocytes/100 WBC (Bld) 29.9 % [facility] MCH Auto (RBC) [Entitic mass ]on 07-28-2024 MCH (RBC) [Entitic mass] 31.3 pg 26.0-34.0 [facility] MCHC Auto (RBC) [Mass/Vol]on 07-28-2024 MCHC (RBC) [Mass/Vol] 33.8 g/dL 30.5-36.0 [facility] MCV Auto (RBC) [Entitic vol] on 07-28-2024 MCV (RBC) [Entitic vol] 92.7 fL 80.0-100.0 [facility] Monocytes Auto (Bld) [#/Vol] on 07-28-2024 Monocytes (Bld) [#/Vol] 0.50 10*3/uL <0.87 [facility] Monocytes/100 WBC Auto (Bld) on 07-28-2024 Monocytes/100 WBC (Bld) 7.0 % [facility] Neutrophils Auto (Bld) [#/Vo l]on 07-28-2024 Neutrophils (Bld) [#/Vol] 4.18 10*3/uL 1.45-7.50 [facility] Neutrophils/100 WBC Auto (Bl d)on 07-28-2024 Neutrophils/100 WBC (Bld) 58.5 % [facility] No Panel Informationon 07-28 Estimated GFR (CKD-EPI) 65 mL/min/1.73m??? >=60 [facility] Comment on above: Estimated Glomerular Filtration Rate (eGFR) is calculated using the 2020 CKD-EPI creatinine equation. This equation utilizes serum creatinine, sex, and age as parameters. The creatinine assay has traceable calibration to isotope dilution-mass spectrometry. Refer to KDIGO guidelines for clinical interpretation. In patients with unstable renal function, e.g. those with acute kidney injury, the eGFR may not accurately reflect actual GFR. Immature Granulocyte # (Auto) <0.03 k/uL <0.10 [facility] Nucleated RBC Auto (Bld) [#/ Vol]on 07-28-2024 Nucleated RBC (Bld) [#/Vol] 10*3/uL <0.01 [facility] Nucleated erythrocytes [Pres ence] in Blood by Automated counton 07-28-2024 Nucleated RBC Auto Ql (Bld) 0.0 /100{WBC} [facility] Platelet mean volume Auto (B ld) [Entitic vol]on 07-28-2024 Platelet mean volume (Bld) [Entitic vol] 9.2 fL 9.0-12.7 [facility] Platelets Auto (Bld) [#/Vol] on 07-28-2024 Platelets (Bld) [#/Vol] 325 10*3/uL 150-400 [facility] Protein [Mass/volume] in Ser um or Plasmaon 07-28-2024 Protein [Mass/Vol] 6.7 g/dL 6.3-8.0 [facility] RBC Auto (Bld) [#/Vol]on RBC (Bld) [#/Vol] 3.83 10*6/uL Low 3.90-5.20 [facility] Serum or plasma anion gap de terminationon 07-28-2024 Anion gap [Moles/Vol] 8 mmol/L 8-15 [facility] CNPNon 07-25-2024 CNPN Telephone ([place]) PRANAV KEMP ([id number]) 1955 F Date Time Provider Department 07/25/24 ANDREA MILLER During your visit today, we recorded the following information about you: Gisselle Jones MA 07/25/2024 1:28 PM Signed Patient has an appt on 07/28. Last note states labs same day. Would you like labs? Allergies As of Date: 07/25/2024 Noted Allergy Reaction ACETAMINOPHEN-CODEINE 06/03/2015 2 - Rash 4 - Hives BERRIES 06/03/2015 2 - Rash CIPROFIBRATE 02/05/2021 16 - Unknown CIPROFLOXACIN 06/03/2015 4 - Hives CODEINE 02/05/2021 16 - Unknown GRAPE 06/03/2015 8 - GI Upset KEFLEX (CEPHALEXIN) 06/03/2015 4 - Hives 9 - Itching KENALOG-H 06/03/2015 14 - Other: See Comments Comments: Blood clots LATEX 06/03/2015 4 - Hives MONTELUKAST 02/05/2021 16 - Unknown MUSHROOM 06/03/2015 2 - Rash NAPROXEN 06/03/2015 1 - Mental Status Change [id number] LYMYXIN 02/05/2021 16 - Unknown NOVACAINE (PROCAINE) 06/03/2015 1 - Mental Status Change PEANUTS 06/03/2015 1 - Mental Status Change SHELLFISH DERIVED 06/03/2015 1 - Mental Status Change STRAWBERRIES 06/03/2015 2 - Rash SULFA (SULFONAMIDE ANTIBIOTICS) 06/03/2015 2 - Rash 4 - Hives TREE NUT 06/03/2015 1 - Mental Status Change TRIAMCINOLONE 02/05/2021 16 - Unknown Date Reviewed: 12/22/2023 Reviewed by: Kaylee Beltrán LPN - Fully Assessed Reason for Visit: Lab Orders [1688] Primary Visit Diagnosis:Ductal carcinoma in situ (DCIS) of left breast [D05.12] Order(s):COMPLETE BLOOD COUNT AND DIFFERENTIAL [SQCBCDIF] Order #: [id number] FUTURE COMPREHENSIVE METABOLIC PANEL [SQCMP] Order #: [id number] FUTURE Prescriptions as of 07/25/2024 - tamoxifen (NOLVADEX) 20 mg tablet Take 1 tablet (20 mg) by mouth once daily. - pantoprazole DR (PROTONIX) 40 mg tablet Take 1 tablet by mouth once daily. - acetaminophen (TYLENOL) 325 mg tablet Take 2 tablets by mouth every 6 hours as needed for pain. - losartan (COZAAR) 25 mg tablet Take 25 mg by mouth once daily. - loratadine (CLARITIN ORAL) Take by mouth. - albuterol HFA (PROVENTIL HFA, VENTOLIN HFA) 90 mcg/actuation inhaler Inhale as instructed. 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] 06/03/2015 Choledocholithiasis [K80.50] 07/02/2022 07/02/2022 Obesity, Class I, BMI 30-34.9 [E66.811] 07/02/2022 Hypokalemia [E87.6] 07/03/2022 Encounter Status:Closed by ANDREA MILLER on 07/25/24 Normal [facility] Alanine aminotransferase [En zymatic activity/volume] in Serum or PlasmaOrdered By: OUTREACH COMMUNITY on 05-13-2024 ALT [Catalytic activity/Vol] 10 U/L Normal 7-52 [facility] Comment on above: Performed By: #### C KENDRA, OUTREACH LIPID, OUTREACH CMP #### [facility] [address] [place] [id number] [place] Albumin [Mass/volume] in Ser um or Plasma by Bromocresol green (BCG) dye binding methoOrdered By: OUTREACH COMMUNITY on 05-13-2024 Albumin BCG dye [Mass/Vol] 3.7 g/dL 3.5-5.7 [facility] Alkaline phosphatase [Enzyma tic activity/volume] in Serum or PlasmaOrdered By: OUTREACH COMMUNITY on 05-13-2024 ALP [Catalytic activity/Vol] 46 U/L Normal 34-104 [facility] Comment on above: Performed By: #### C KENDRA, OUTREACH LIPID, OUTREACH CMP #### [facility] [address] [place] [id number] [place] Aspartate aminotransferase [ Enzymatic activity/volume] in Serum or PlasmaOrdered By: OUTREACH COMMUNITY on 05-13-2024 AST [Catalytic activity/Vol] 13 U/L Normal 13-39 [facility] Comment on above: Performed By: #### C KENDRA, OUTREACH LIPID, OUTREACH CMP #### [facility] [address] [id number] [place] Bilirubin.total [Mass/volume ] in Serum or PlasmaOrdered By: OUTREACH COMMUNITY on 05-13-2024 Bilirubin [Mass/Vol] 0.4 mg/dL Normal 0.3-1.0 [facility] Comment on above: Performed By: #### C BCNOOUTREACH, OUTREACH LIPID, OUTREACH CMP #### [address] CBC Without Differentialon 0 05-13-2024 Mean Corpuscular HGB Conc 34.0 g/dL Normal 32.0-35.0 [facility] Comment on above: Performed By: #### C BCNOOUTREACH, OUTREACH LIPID, OUTREACH CMP #### [address] WBC (Bld) [#/Vol] 6.2 10*3/uL Normal 3.8-11.6 [facility] Comment on above: Performed By: #### C BCNOOUTREACH, OUTREACH LIPID, OUTREACH CMP #### [address] CMP Outreachon 05-13-2024 Albumin [Mass/Vol] 3.7 g/dL Normal 3.5-5.7 [facility] Comment on above: Performed By: #### C BCNOOUTREACH, OUTREACH LIPID, OUTREACH CMP #### [address] GFR/1.73 sq M.predicted MDRD (S/P/Bld) [Vol rate/Area] mL/min/{1.73_m2} Normal [facility] Comment on above: Performed By: #### C BCNOOUTREACH, OUTREACH LIPID, OUTREACH CMP #### [address] Calcium [Mass/volume] in Ser um or PlasmaOrdered By: OUTREACH COMMUNITY on 05-13-2024 Calcium [Mass/Vol] 8.9 mg/dL Normal 8.6-10.3 [facility] Comment on above: Performed By: #### C BCNOOUTREACH, OUTREACH LIPID, OUTREACH CMP #### [address] Carbon dioxide, total [Moles /volume] in Serum or PlasmaOrdered By: OUTREACH COMMUNITY on 05-13-2024 CO2 [Moles/Vol] 30.3 mmol/L Normal 21.0-31.0 [facility] Comment on above: Performed By: #### C BCNOOUTREJACK, OUTREACH LIPID, OUTREACH CMP #### [facility] [address] [place] [address] [place] Chloride [Moles/volume] in S heavenly or PlasmaOrdered By: OUTREACH COMMUNITY on 05-13-2024 Chloride [Moles/Vol] 107 mmol/L Normal 98-107 [facility] Comment on above: Performed By: #### C BCNOOUTREACH, OUTREACH LIPID, OUTREACH CMP #### [facility] [address] [place] [address] [place] Cholesterol [Mass/volume] in Serum or PlasmaOrdered By: OUTREACH COMMUNITY on 05-13-2024 Cholesterol [Mass/Vol] 158 mg/dL Normal 140-200 [facility] Comment on above: Chol less than 200 m g/dl low riskChol 201-239 mg/dl borderline riskChol 240 mg/dl and greater high risk Result Comment: Chol less than 200 mg/dl low risk Chol 201-239 mg/dl borderline risk Chol 240 mg/dl and greater high risk Performed By: #### C BCNOOUTREACH, OUTREACH LIPID, OUTREACH CMP #### [facility] [address] [place] [address] [place] Cholesterol in LDL Calc [Mas s/Vol]Ordered By: OUTREACH COMMUNITY on 05-13-2024 Cholesterol in LDL [Mass/Vol] 93 mg/dL 0-100 [facility] Comment on above: LDL ATP III CLASSIFI CATIONLDL less than 100 mg/dL OptimalLDL 100-129 mg/dL Near or above optimalLDL 130-159 mg/dL Borderline highLDL 160-189 mg/dL HighLDL greater than 189 mg/dL Very high Cholesterol in VLDL Calc [Ma ss/Vol]Ordered By: OUTREACH COMMUNITY on 05-13-2024 Cholesterol in VLDL [Mass/Vol] 20 mg/dL [facility] Creatinine [Mass/volume] in Serum or PlasmaOrdered By: OUTREACH COMMUNITY on 05-13-2024 Creatinine [Mass/Vol] 0.95 mg/dL Normal 0.60-1.20 [facility] Comment on above: Performed By: #### C BCNOOUTREJACK, OUTREACH LIPID, OUTREACH CMP #### [facility] [address] [phone] [place] Erythrocyte distribution wid th [Ratio] by Automated countOrdered By: [facility] on 05-13-2024 Erythrocyte distribution width (RBC) [Ratio] 12.6 % Normal 11.9-15.3 [facility] Comment on above: Performed By: #### C BCNOOUTREACH, OUTREACH LIPID, OUTREACH CMP #### [facility] [address] [place] [address] [place] Erythrocytes [#/volume] in B lood by Automated countOrdered By: [facility] on 05-13-2024 RBC (Bld) [#/Vol] 4.01 10*6/uL Normal 3.60-5.00 [facility] Comment on above: Performed By: #### C BCNOOUTREACH, OUTREACH LIPID, OUTREACH CMP #### [facility] [address] [place] [address] [place] Glucose [Mass/volume] in Ser um or PlasmaOrdered By: [facility] on 05-13-2024 Glucose [Mass/Vol] 85 mg/dL Normal 70-100 [facility] Comment on above: ADA recommended refe rence rangeRandom Glucose Reference Range is dependent on time and content of last meal. Glucose of more than 200 mg/dL in a nonstressed, ambulatory subject supports the diagnosis of Diabetes Mellitus. Result Comment: [place] om Glucose Reference Range is dependent on time and content of last meal. Glucose of more than 200 mg/dL in a nonstressed, ambulatory subject supports the diagnosis of Diabetes Mellitus. ADA recommended reference range Performed By: #### C BCNOOUTREACH, OUTREACH LIPID, OUTREACH CMP #### [facility] [address] [place] [address] [place] Hematocrit [Volume Fraction] of Blood by Automated countOrdered By: [facility] on 05-13-2024 Hematocrit (Bld) [Volume fraction] 37.7 % Normal 34.0-46.4 [facility] Comment on above: Performed By: #### C BCNOOUTREACH, OUTREACH LIPID, OUTREACH CMP #### [facility] [address] [place] [address] [place] Hemoglobin [Mass/volume] in BloodOrdered By: [facility] on 05-13-2024 Hemoglobin (Bld) [Mass/Vol] 12.8 g/dL Normal 11.8-15.4 [facility] Comment on above: Performed By: #### C BCMAGDALENAREJACK, [facility] LIPID, OUTREACH CMP #### [facility] [address] Leukocytes [#/volume] correc zara for nucleated erythrocytes in Blood by Automated counOrdered By: [facility] on 05-13-2024 WBC corrected for nucl RBC Auto (Bld) [#/Vol] 6.2 10*3/uL 3.8-11.6 [facility] Lipid Profile Outreach LDL Cholesterol,Calculated 93 mg/dL Normal 0-100 [facility] Comment on above: Result Comment: LDL ATP III CLASSIFICATION LDL less than 100 mg/dL Optimal LDL 100-129 mg/dL Near or above optimal LDL 130-159 mg/dL Borderline high LDL 160-189 mg/dL High LDL greater than 189 mg/dL Very high Performed By: #### C WILMERREJACK, [facility] LIPID, OUTREACH CMP #### [facility] [address] Triglyceride w/Reflex 102 mg/dL Normal 0-149 [facility] Comment on above: Result Comment: TRIG ATP III CLASSIFICATION TRIG less than 150 mg/dL Normal TRIG 150-199 mg/dL Borderline high TRIG 200-500 mg/dL High TRIG greater than 500 mg/dL Very high Standard traceable to the Center for Disease Conrtrol and Prevention (CDC) test method. Performed By: #### C WILMERREJACK, [facility] LIPID, OUTREACH CMP #### [facility] [address] VLDL CHOLESTEROL 20 mg/dL Normal [facility] Comment on above: Performed By: #### C BCMAGDALENAREJACK, [facility] LIPID, OUTREACH CMP #### [facility] [address] MCH [Entitic mass] by Automa zara countOrdered By: [facility] on 05-13-2024 MCH (RBC) [Entitic mass] 31.9 pg Normal 24.7-34.3 [facility] Comment on above: Performed By: #### C BCNOOUTREACH, OUTREACH LIPID, OUTREACH CMP #### [facility] [address] MCHC Auto (RBC) [Mass/Vol]Or dered By: OUTREACH [facility] on 05-13-2024 MCHC (RBC) [Mass/Vol] 34.0 g/dL 32.0-35.0 [facility] MCV [Entitic volume] by Auto mated countOrdered By: [facility] on 05-13-2024 MCV (RBC) [Entitic vol] 94.0 fL Normal 80-100 [facility] Comment on above: Performed By: #### C BCNOOUTREACH, OUTREACH LIPID, OUTREACH CMP #### [facility] [address] [place] [address] No Panel InformationOrdered By: [facility] on 05-13-2024 Estimated GFR (CKD-EPI) > 60.0 mL/Min [facility] Creatinine Clearance (Chem N/A [facility] Platelet mean volume [Entiti c volume] in Blood by Automated countOrdered By: [facility] on 05-13-2024 Platelet mean volume (Bld) [Entitic vol] 7.2 fL Normal 6.3-10.7 [facility] Comment on above: Result Comment: PERF ORMED BY: [place] [address] PATHOLOGIST [employer]ERAL SURVEYOR KAREN RATLIFF M.D. Performed By: #### C BCNOOUTREJACK, OUTREACH LIPID, OUTREACH CMP #### [facility] [address] [place] [address] Platelets [#/volume] in Bloo d by Automated countOrdered By: [facility] on 05-13-2024 Platelets (Bld) [#/Vol] 317 10*3/uL Normal 150-450 [facility] Comment on above: Performed By: #### C BCNOOUTREACH, OUTREACH LIPID, OUTREACH CMP #### [facility] [address] [place] [address] Potassium [Moles/volume] in Serum or PlasmaOrdered By: OUTREACH COMMUNITY on 05-13-2024 Potassium [Moles/Vol] 4.1 mmol/L Normal 3.5-5.1 [facility] Comment on above: Performed By: #### C BCNOOUTREACH, OUTREACH LIPID, OUTREACH CMP #### [facility] [address] Protein [Mass/volume] in Ser um or PlasmaOrdered By: OUTREACH COMMUNITY on 05-13-2024 Protein [Mass/Vol] 6.3 g/dL Low 6.4-8.9 [facility] Comment on above: Performed By: #### C BCNOOUTREACH, OUTREACH LIPID, OUTREACH CMP #### [facility] [address] Serum or plasma anion gap de terminationOrdered By: OUTREACH COMMUNITY on 05-13-2024 Anion gap [Moles/Vol] 7.8 mmol/L Normal 6.0-15.0 [facility] Comment on above: Performed By: #### C BCNOOUTREACH, OUTREACH LIPID, OUTREACH CMP #### [facility] [address] Serum or plasma high density lipoprotein (HDL) cholesterol measurementOrdered By: OUTREACH COMMUNITY on 05-13-2024 Cholesterol in HDL [Mass/Vol] 45 mg/dL Normal 23-92 [facility] Comment on above: HDL CHOL ATP-III CLA SSIFICATION Cardiovascular RiskHDL > or equal to 60 mg/dL LOWHDL < 40 mg/dL HIGH Result Comment: HDL CHOL ATP-III CLASSIFICATION Cardiovascular Risk HDL > or equal to 60 mg/dL LOW HDL < 40 mg/dL HIGH Performed By: #### C BCNOOUTREACH, OUTREACH LIPID, OUTREACH CMP #### [facility] [address] Serum or plasma total choles terol/high density lipoprotein (HDL) cholesterol mass ratOrdered By: OUTREACH COMMUNITY on 05-13-2024 Cholesterol.total/Choles terol in HDL [Mass ratio] 3.5 {ratio} Normal <5.0 [facility] Comment on above: Result Comment: PERF ORMED BY: [place] [address] PATHOLOGIST [employer] SURVEYOR KAREN RATLIFF M.D. Performed By: #### C KENDRA, OUTREACH LIPID, OUTREACH CMP #### [facility] [address] Sodium [Moles/volume] in Ser um or PlasmaOrdered By: OUTREACH COMMUNITY on 05-13-2024 Sodium [Moles/Vol] 141 mmol/L Normal 136-145 [facility] Comment on above: Performed By: #### C KENDRA, OUTREACH LIPID, OUTREACH CMP #### [facility] [address] Triglyceride [Mass/volume] i n Serum or PlasmaOrdered By: OUTREACH COMMUNITY on 05-13-2024 Triglyceride [Mass/Vol] 102 mg/dL 0-149 [facility] Comment on above: TRIG ATP III CLASSIF ICATIONTRIG less than 150 mg/dL NormalTRIG 150-199 mg/dL Borderline highTRIG 200-500 mg/dL High TRIG greater than 500 mg/dL Very highStandard traceable to the Center for Disease Conrtrol and Prevention (CDC) test method. Urea nitrogen [Mass/volume] in Serum or PlasmaOrdered By: OUTREACH COMMUNITY on 05-13-2024 Urea nitrogen [Mass/Vol] 11 mg/dL Normal 7-25 [facility] Comment on above: Performed By: #### C KENDRA, OUTREACH LIPID, OUTREACH CMP #### [address] CNPNon 02-03-2024 CNPN Telephone (SEUNASA) PRANAV KEMP ([id number]) 1955 F Date Time Provider Department 02/03/24 ENOCH BECKETT During your visit today, we recorded the following information about you: Enoch Beckett, KAT 02/03/2024 3:13 PM Signed Pt requesting new RX for Tamoxifen to [facility]. Needs to be 90 day supply to get local. Scot: pended; please review and sign Enoch Beckett RN Allergies As of Date: 02/03/2024 Noted Allergy Reaction ACETAMINOPHEN-CODEINE 06/03/2015 2 - Rash 4 - Hives BERRIES 06/03/2015 2 - Rash CIPROFIBRATE 02/05/2021 16 - Unknown CIPROFLOXACIN 06/03/2015 4 - Hives CODEINE 02/05/2021 16 - Unknown GRAPE 06/03/2015 8 - GI Upset KEFLEX (CEPHALEXIN) 06/03/2015 4 - Hives 9 - Itching KENALOG-H 06/03/2015 14 - Other: See Comments Comments: Blood clots LATEX 06/03/2015 4 - Hives MONTELUKAST 02/05/2021 16 - Unknown MUSHROOM 06/03/2015 2 - Rash NAPROXEN 06/03/2015 1 - Mental Status Change [id number] LYMYXIN 02/05/2021 16 - Unknown NOVACAINE (PROCAINE) 06/03/2015 1 - Mental Status Change PEANUTS 06/03/2015 1 - Mental Status Change SHELLFISH DERIVED 06/03/2015 1 - Mental Status Change STRAWBERRIES 06/03/2015 2 - Rash SULFA (SULFONAMIDE ANTIBIOTICS) 06/03/2015 2 - Rash 4 - Hives TREE NUT 06/03/2015 1 - Mental Status Change TRIAMCINOLONE 02/05/2021 16 - Unknown Date Reviewed: 12/22/2023 Reviewed by: Kaylee Beltrán LPN - Fully Assessed Reason for Visit: Tamoxifen RX [Other] Visit Diagnosis: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 - pantoprazole DR (PROTONIX) 40 mg tablet Take 1 tablet by mouth once daily. - acetaminophen (TYLENOL) 325 mg tablet Take 2 tablets by mouth every 6 hours as needed for pain. - losartan (COZAAR) 25 mg tablet Take 25 mg by mouth once daily. - loratadine (CLARITIN ORAL) Take by mouth. - albuterol HFA (PROVENTIL HFA, VENTOLIN HFA) 90 mcg/actuation inhaler Inhale as instructed. 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 Medications Discontinued During This Encounter Prescriptions - tamoxifen (NOLVADEX) 20 mg tablet (Discontinued) Take 1 tablet (20 mg) by mouth once daily. Encounter Status:Closed by ANDREA MILLER on 02/03/24 [facility] CNOVon 12-22-2023 CNOV Office Visit (RADTSA ) PRANAV KEMP ([id number]) 1955 F Date Time Provider Department 12/22/23 10:15 AM Fauzia SILVA During your visit today, we recorded the following information about you: Temperature Pulse Respiration Blood pressure 97.2 degrees 79/minute 16/minute 155/80 Weight 79.6 kg Fauzia Silva MD 12/22/2023 10:42 AM Signed Radiation Oncology Follow Up Note PATIENT NAME: Pranav Kemp PATIENT DIAGNOSIS: Breast cancer, left, DCIS UIQ, pathologic stage 0 GuxH3T5, ER-positive and NV-positive, s/p partial mastectomy. RADIATION SUMMARY:DATES OF TREATMENT: 02/24/2021- 03/25/2021 AREA TREATED: Left Breast DELIVERED DOSE: Area: Left Breast 4,256 cGy in 16 fractions, 2 Capone, 3D Conformal, 6MV/18 MV DELIVERED DOSE: Area: Left Breast Boost 1,000 cGy in 4 fractions, 3 [place]one, 3D Conformal, 6MV and 10 MV with daily CBCT TOTAL: 5,256 cGy in 20 fractions ELAPSED TIME: 29 days. INTERVAL HISTORY: Doing well denies any problems or concerns. Mammography, bilateral, 12/17/2023: Scattered areas of fibroglandular density. Category 2 benign finding. Normal interval 12-month return examination recommended. ALLERGIES Allergen Reactions Acetaminophen-Codei* Rash, Hives Berries Rash Ciprofibrate Unknown Ciprofloxacin Hives Codeine Unknown Grape GI Upset Keflex [Cephalexin] Hives, Itching Kenalog-H Other: See Comments Blood clots Latex Hives Montelukast Unknown Mushroom Rash Naproxen Mental Status Change Neomycin-Bacitracin* Unknown Novacaine [Procaine] Mental Status Change Peanuts Mental Status Change Shellfish Derived Mental Status Change Strawberries Rash Sulfa (Sulfonamide * Rash, Hives Tree Nut Mental Status Change Triamcinolone Unknown tamoxifen (NOLVADEX) 20 mg tablet Take 1 tablet (20 mg) by mouth once daily. pantoprazole DR (PROTONIX) 40 mg tablet Take 1 tablet by mouth once daily. acetaminophen (TYLENOL) 325 mg tablet Take 2 tablets by mouth every 6 hours as needed for pain. losartan (COZAAR) 25 mg tablet Take 25 mg by mouth once daily. loratadine (CLARITIN ORAL) Take by mouth. albuterol HFA (PROVENTIL HFA, VENTOLIN HFA) 90 mcg/actuation inhaler Inhale as instructed. PHYSICAL EXAM: VS: BP 155/80 Pulse 79 Temp 36.2 ?C (97.2 ?F) Resp 16 Wt 79.6 kg (175 lb 7.8 oz) SpO2 100% BMI 28.34 kg/m? KPS: 100 General Appearance: Well appearing, alert, in no acute distress, well-hydrated, well nourished.. Skin: Skin color, texture, turgor normal, no suspicious rashes or lesions. Lungs: Lungs clear to auscultation. No wheezing, rhonchi, rales.. Heart: RRR without murmur Abdomen: Normal abdominal exam, Abdomen soft, non-tender. No masses, organomegaly. Lymph Nodes: No cervical lymphadenopathy, No supraclavicular lymphadenopathy and No axillary lymphadenopathy.. Breast: Left breast with mild asymmetry--decrease size compared to right No fibrosis or erythema evidence. No suspicious or dominant nodularity. Posttreatment skin change inframammary crease notable Right breast without dominant nodularity or skin changes. Impression: Breast cancer, left, DCIS UIQ, pathologic stage 0 [id number], ER-positive and NV-positive, s/p partial mastectomy, status post left breast radiation completed March 2021. Overall doing well without evidence of recurrence. No significant post treatment related problems. Recommend follow-up in 1 year when she is due for annual mammography. Signed by: Fauzia Silva MD cc: Yesica Mcguire MD ([facility]) [address] [place] [phone] Referring Provider: Fauzia SILVA [[id number]] Allergies As of Date: 12/22/2023 Noted Allergy Reaction ACETAMINOPHEN-CODEINE 06/03/2015 2 - Rash 4 - Hives BERRIES 06/03/2015 2 - Rash CIPROFIBRATE 02/05/2021 16 - Unknown CIPROFLOXACIN 06/03/2015 4 - Hives CODEINE 02/05/2021 16 - Unknown GRAPE 06/03/2015 8 - GI Upset KEFLEX (CEPHALEXIN) 06/03/2015 4 - Hives 9 - Itching KENALOG-H 06/03/2015 14 - Other: See Comments Comments: Blood clots LATEX 06/03/2015 4 - Hives MONTELUKAST 02/05/2021 16 - Unknown MUSHROOM 06/03/2015 2 - Rash NAPROXEN 06/03/2015 1 - Mental Status Change [id number] LYMYXIN 02/05/2021 16 - Unknown NOVACAINE (PROCAINE) 06/03/2015 1 - Mental Status Change PEANUTS 06/03/2015 1 - Mental Status Change SHELLFISH DERIVED 06/03/2015 1 - Mental Status Change STRAWBERRIES 06/03/2015 2 - Rash SULFA (SULFONAMIDE ANTIBIOTICS) 06/03/2015 2 - Rash 4 - Hives TREE NUT 06/03/2015 1 - Mental Status Change TRIAMCINOLONE 02/05/2021 16 - Unknown Date Reviewed: 12/22/2023 Reviewed by: Kaylee Beltrán LPN - Fully Assessed Reason for Visit: Breast Cancer [519] Primary Visit Diagnosis: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 Normal [facility] MG MAMM DIAGNOSTIC 3D ИВАН CA Don 12-16-2022 MG MAMM DIAGNOSTIC 3D ИВАН CAD Patient: PRANAV KEMP Exam Date: 12/16/2022 : 1955 Gender:F Ordering : DR KRYS SILVA M.D. Admission #: [id number] Family : DR YESICA MCGUIRE M.D. Order #: [id number] CLICK HERE TO VIEW EXAM RADIOLOGY REPORT PROCEDURE: MAMMOGRAM DIAGNOSTIC 3D BILATERAL CAD COMPARISON: MG MAMM DIAGNOSTIC 3D ИВАН CAD, 12/11/2021. MG MAMM DX 3D LT CAD, 06/09/2021. MAMMO POST BIOPSY LEFT, 11/25/2020. MG MAMM SCREEN ИВАН W CAD, 11/07/2020. INDICATIONS: Intraductal carcinoma in situ of left breast Calculator Name NCI Breast Cancer Risk Assessment Tool 5 Year Breast Cancer Risk 1.90% Lifetime Breast Cancer Risk 5.70% Personal Breast Cancer No Personal Ovarian Cancer No Treatments None Family Cancers Father with stomache cancer at age 92. LOCATION: [facility] BREAST COMPOSITION: Scattered areas fibroglandular density. FINDINGS: DIAGNOSTIC CATEGORY 2--BENIGN FINDING: RIGHT BREAST: No significant suspicious finding. Scattered benign-appearing calcifications are present. No significant change has occurred. LEFT BREAST: No significant suspicious finding. Stable postsurgical scarring and partially rim calcified oil cysts in subareolar region. Scattered benign-appearing calcifications are present within breast. No significant change has occurred. RECOMMENDATIONS: ROUTINE MAMMOGRAM AND CLINICAL EVALUATION IN 12 MONTHS. PLEASE NOTE: A NORMAL MAMMOGRAM DOES NOT EXCLUDE THE POSSIBILITY OF BREAST CANCER. A CLINICALLY SUSPICIOUS PALPABLE LUMP SHOULD BE BIOPSIED. Dictated by: Lazarus Cortez M.D. on 12/16/2022 at 08:34 Approved by: Lazarus Cortez M.D. on 12/16/2022 at 08:39 Normal [facility] ANES POSTPROC EVALon 022 ANES POSTPROC EVAL HNO ID: [id number] Author: Glen Roldan MD Service: Anesthesiology Author Type: Anesthesiologist Type: Anesthesia Postprocedure Evaluation Filed: 09/09/2022 1:30 PM Note Text: POST ANESTHESIA EVALUATION NOTE : 1955 Procedure Summary Date: 09/09/22 Room / Location: [facility] Endoscopy - ENDO Anesthesia Start: 1247 Anesthesia Stop: 1313 Procedures: ERCP EGD DIAGNOSTIC Diagnosis: Encounter for removal of biliary stent Esophagitis Scheduled Providers: Lashell Peña MD; Breana Hoang APRN.FOUNDER CEO [employer] PRESIDENT; Rafael Lewis DO Responsible Provider: Glen Roldan MD Anesthesia Type: MAC ASA Status: 3 Anesthesia Type: MAC Last Vitals Vitals Value Taken Time BP 154/58 09/09/22 1315 09/09/22 1330 Pulse 77 09/09/22 1329 Resp 19 09/09/22 1329 SpO2 100 % 09/09/22 1329 Vitals shown include unvalidated device data. Post Anesthesia Patient Status Patient Evaluation: PACU. PACU/ICU Patient Condition: stable. Neurological Status: aware and responsive. Pulmonary Status: breathing comfortably on room air Airway Control: returned to baseline unsupported. Cardiovascular Status: stable. Pain Management: clinically adequate Postoperative Hydration: acceptable. Intraoperative Events: no significant anesthesia events Post Operative Nausea/Vomiting Status: no significant post operative nausea or vomiting Recommendation: continue current plan of care. Anesthesia Observations No Documentation SIGNATURE: Glen Roldan MD PATIENT NAME: Pranav Kemp DATE: September 09, 2022 TIME: 1:30 PM CSN: [id number] [facility] ANES PRE-OPon 09-09-2022 ANES PRE-OP HNO ID: [id number] Author: Glen Roldan MD Service: Anesthesiology Author Type: Anesthesiologist Type: Anesthesia Preprocedure Evaluation Filed: 09/09/2022 11:45 AM Note Text: ANESTHESIOLOGY DAY OF SURGERY NOTE : 1955 Procedure Information Date/Time: 09/09/22 1230 Scheduled providers: Lashell Peña MD; Breana Hoang APRN.FOUNDER CEO & PRESIDENT; Glen Roldan MD Procedures: ERCP EGD DIAGNOSTIC Location: [facility] Endoscopy - ENDO Estimated body mass index is 29.86 kg/m? as calculated from the following: Height as of 07/17/22: 167.6 cm (5' 6 ). Weight as of 07/17/22: 83.9 kg (185 lb). Most recent hematocrit and potassium results: Hematocrit 33.5 07/04/2022 Potassium 3.4 07/04/2022 Relevant Problems No relevant active problems I - PHYSICAL EVALUATION AIRWAY Patient intubated: No. Tracheostomy tube not present Mallampati: II. TM distance: >3 FB. Neck ROM: full ROM without neurological symptoms. Mouth opening: adequate. Short neck: no. Thick neck: no Hawkins present: no DENTAL Dentures, upper: partial. Additional exam findings: no II - ANESTHESIA PLAN ASA Score: 3 Anesthetic Plan: MAC The patient is not a current smoker. NPO Status: adequate Anesthetic plan additional comments: GA if needed.. Beta Luda Monitoring Plan Monitoring plan: standard ASA. Post Procedure Analgesic Plan Postoperative analgesic plan: multimodal analgesia. Informed Consent Anesthetic risks, benefits, alternatives, personnel and consent discussed: yes. Patient / Responsible Constitution Party agrees to proceed: yes Patient / Surrogate agrees to blood products: Yes Potential Anesthesia issues that may suggest increased risk of complications or contraindication to planned procedure: none. No vitals data found for the desired time range. Outpatient Medications as of 09/09/2022 Medication Sig - pantoprazole DR (PROTONIX) 40 mg tablet Take 1 tablet by mouth twice daily before meals (0600/1600). - acetaminophen (TYLENOL) 325 mg tablet Take 2 tablets by mouth every 6 hours as needed for pain. - tamoxifen (NOLVADEX) 20 mg tablet Take 1 tablet (20 mg) by mouth once daily. - tamoxifen (NOLVADEX) 20 mg tablet Take 1 tablet (20 mg) by mouth once daily. - losartan (COZAAR) 25 mg tablet Take 25 mg by mouth once daily. - loratadine (CLARITIN ORAL) Take by mouth. - albuterol HFA (PROVENTIL HFA, VENTOLIN HFA) 90 mcg/actuation inhaler Inhale as instructed. No current facility-administered medications on file as of 09/09/2022. I have interviewed and examined the patient. I have reviewed the medical record and/or the pre-anesthesia evaluation, pertinent labs, and test results. This contains updated information obtained within 48 hours of Surgery/Procedure. SIGNATURE: Glen Roldan MD PATIENT NAME: Pranav Kemp DATE: September 09, 2022 TIME: 11:44 AM CSN: [id number] Normal [facility] ERCPon 09-09-2022 ERCP [facility] Gastrointestinal Endoscopy Patient Name: Pranav Kemp Procedure Date: 09/09/2022 12:38 PM Date of : 1955 Admit Type: Outpatient Age: 67 Room: [place] [address] Gender: Female Note Status: Finalized Attending MD: Lashell Peña MD Procedure: ERCP Indications: Stent removal Providers: Lashell Peña MD, Lea Sepulveda RN, Aarti Aquino RN (Assisting Nurse) Patient Profile: This is a 67 year old female. Refer to note in patient chart for documentation of history and physical. Her most recent ERCP for sphincterotomy, ERCP for stent and ERCP for stone removal was within the past three months. She is status post laparoscopic cholecystectomy within the past three months. Referring Physician: Medicines: Monitored Anesthesia Care Complications: No immediate complications. Procedure: Pre-Anesthesia Assessment: - Prior to the procedure, a History and Physical was performed, and patient medications, allergies and sensitivities were reviewed. The patient's tolerance of previous anesthesia was reviewed. - The risks and benefits of the procedure and the sedation options and risks were discussed with the patient. All questions were answered and informed consent was obtained. - Patient identification and proposed procedure were verified prior to the procedure by the physician, the nurse and the flight hostess. The procedure was verified in the pre-procedure area. - Pre-procedure physical examination revealed no contraindications to sedation. - ASA Grade Assessment: II - A patient with mild systemic disease. - After reviewing the risks and benefits, the patient was deemed in satisfactory condition to undergo the procedure. - Monitored anesthesia care under the supervision of a FOUNDER CEO & PRESIDENT was determined to be medically necessary for this procedure based on review of the patient's medical history, medications, and prior anesthesia history. After obtaining informed consent, the scope was passed under direct vision. Throughout the procedure, the patient's blood pressure, pulse, and oxygen saturations were monitored continuously. The Endoscope was introduced through the mouth, and advanced to the duodenum and used to inject contrast into the bile duct. The ERCP was accomplished without difficulty. The patient tolerated the procedure well. The procedure was determined to be ASGE Complexity Level 1. Moderate Sedation: MAC anesthesia was administered by the anesthesia team. Total Procedure Duration: 0 hours 4 minutes 59 seconds Findings: A telephone station installer film of the abdomen was obtained. Surgical clips, consistent with a previous cholecystectomy, were seen in the area of the right upper quadrant of the abdomen. The esophagus was successfully intubated under direct vision without detailed examination of the pharynx, larynx, and associated structures, and upper GI tract. The upper GI tract was grossly normal. A biliary sphincterotomy had been performed. The sphincterotomy appeared open. There was no stent seen emerging from the major papilla. The bile duct was deeply cannulated with the 11.5 mm balloon. Contrast was injected. I personally interpreted the bile duct images. There was brisk flow of contrast through the ducts. Image quality was excellent. Contrast extended to the hepatic ducts. The common bile duct was normal. A 0.025 inch x 270 cm straight Visiglide wire was passed into the biliary tree. To discover objects, the biliary tree was swept with an 11.5 mm balloon and 13.5 mm balloon starting at the bifurcation. Nothing was found. Impression: - Prior biliary sphincterotomy appeared open. - No biliary stent seen. Covered metal stent has migrated distally. Fluoroscopic exam did not show the stent in the abdomen. - The biliary tree was swept and nothing was found. Recommendation: - Discharge patient to home. - Full liquid diet today. - KUB. - Continue present medications. - Return to my office in 3 months. Procedure Code(s): --- Professional --- 79505, Endoscopic retrograde cholangiopancreatograp hy (ERCP); diagnostic, including collection of specimen(s) by brushing or washing, when performed (separate procedure) 91417, Endoscopic catheterization of the biliary ductal system, radiological supervision and interpretation Diagnosis Code(s): --- Professional --- Z46.59, Encounter for fitting and adjustment of other gastrointestinal appliance and device CPT copyright 2020 [employer]. All rights reserved. The codes documented in this report are preliminary and upon netsuite developer review may be revised to meet current compliance requirements. Attending Participation: I personally performed the entire procedure. Scope In: 12:59:56 PM Scope Out: 1:04:55 PM MD Lashell Larios Ala, MD 09/09/2022 1:10:38 PM This report has been signed elec (more content not included)... Normal [facility] HISTORY PHYSICALon 2 HISTORY PHYSICAL HNO ID: [id number] Author: Lashell Peña MD Service: Gastroenterology Author Type: Physician Type: HANDP Filed: 09/09/2022 12:34 PM Note Text: PROCEDURAL SEDATION HISTORY AND PHYSICAL EXAM SERVICE DATE: 09/09/2022 SERVICE TIME: 12:34 PM Subjective HPI: This is a 67 year old female who presents with stent removal/ERCP PAST ANESTHESIA HISTORY: No history of adverse event PAST MEDICAL HISTORY Diagnosis Date Asthma DCIS (ductal carcinoma in situ) 2020 Varicose veins of both lower extremities PAST SURGICAL HISTORY Procedure Laterality Date BREAST LUMPECTOMY HX Left 2020 HYSTERECTOMY HX 1989 L'SCOPE CHOLECYSTECTOMY 07/03/2022 LAPS SURG CHOLECYSTECTOMY W/CHOLANGIOGRAPHY 07/02/2022 PAST SURGICAL HISTORY OF Bilateral 06/10/2012 Laser iridotomy REPAIR ELBOW FRACTURE VEIN SURGERY (SPECIFY LOCATION) HX Dr. John Das Prior to Admission medications as of 09/09/22 1150 Medication Sig Last Dose Taking pantoprazole DR (PROTONIX) 40 mg tablet Take 1 tablet by mouth twice daily before meals (0600/1600). 09/08/2022 Yes acetaminophen (TYLENOL) 325 mg tablet Take 2 tablets by mouth every 6 hours as needed for pain. 09/08/2022 Yes tamoxifen (NOLVADEX) 20 mg tablet Take 1 tablet (20 mg) by mouth once daily. 09/08/2022 Yes losartan (COZAAR) 25 mg tablet Take 25 mg by mouth once daily. 09/08/2022 Yes tamoxifen (NOLVADEX) 20 mg tablet Take 1 tablet (20 mg) by mouth once daily. loratadine (CLARITIN ORAL) Take by mouth. Unknown albuterol HFA (PROVENTIL HFA, VENTOLIN HFA) 90 mcg/actuation inhaler Inhale as instructed. Unknown ALLERGIES Allergen Reactions Acetaminophen-Codei* Rash, Hives Berries Rash Ciprofibrate Unknown Ciprofloxacin Hives Codeine Unknown Grape GI Upset Keflex [Cephalexin] Hives, Itching Kenalog-H Other: See Comments Blood clots Latex Hives Montelukast Unknown Mushroom Rash Naproxen Mental Status Change Neomycin-Bacitracin* Unknown Novacaine [Procaine] Mental Status Change Peanuts Mental Status Change Shellfish Derived Mental Status Change Strawberries Rash Sulfa (Sulfonamide * Rash, Hives Tree Nut Mental Status Change Triamcinolone Unknown Objective PHYSICAL EXAM: The remainder of the physical exam is noncontributory. AIRWAY: LUNGS: CARDIAC: , Assessment/Plan ASA Class: Active Problems: * No active hospital problems. * Resolved Problems: * No resolved hospital problems. * Medication and Non-Pharmacologic VTE Prophylaxis/Anticoagul ants VTE Prophylaxis: VTE prophylaxis appropriate Provisional Diagnosis/Treatment Plan: EGD for surveillance of esophagitis and ERCP for stent removal. SIGNATURE: Lashell Peña MD PATIENT NAME: Pranav Kemp DATE: September 09, 2022 TIME: 12:34 PM [facility] NURSING PROGon 09-09-2022 NURSING PROG HNO ID: [id number] Author: Cecilia Llamas RN Service: ? Author Type: Registered Nurse Type: Nursing Progress Note Filed: 09/09/2022 1:19 PM Note Text: PATIENT EDUCATION TOPIC: PROCEDURE / SURGERY: Post-op Teaching: PATIENT NAME: Pranva Kemp PATIENT LOCATION: Room/bed info not found READINESS TO LEARN COGNITIVE ABILITY: Alert and oriented MOTIVATION TO LEARN: Interested FAMILY SUPPORT: None - Unavailable/disinteres zara INSTRUCTION PROVIDED TO: Patient PATIENT LEARNS BEST BY: Verbal Instruction FACTORS AFFECTING LEARNING: None PHYSICAL LIMITATIONS AFFECTING LEARNING: None LEARNING RESPONSE DIAGNOSIS: ADULT: post ercp PATIENT/FAMILY RESPONSE: Verbalizes understanding of: POST-PROCEDURE INSTRUCTIONS-Correct actions to take to reduce post procedure complications METHOD OF INSTRUCTION: Verbal instruction FOLLOW-UP PLAN: Complete - No need for follow-up INSTRUCTIONAL AIDS USED: NA SUPPLEMENTAL MATERIAL PROVIDED TO PATIENT: None REFERRAL (RECOMMENDATION): None Electronically Signed By: Cecilia Llamas Post ercp [facility] NURSING PROG HNO ID: [id number] Author: Darryn Mcguire RN Service: ? Author Type: Registered Nurse Type: Nursing Progress Note Filed: 09/09/2022 11:56 AM Note Text: PATIENT EDUCATION TOPIC: PROCEDURE / SURGERY: Pre Procedure Teaching: Procedure PATIENT NAME: Prnaav Kemp PATIENT LOCATION: Room/bed info not found READINESS TO LEARN COGNITIVE ABILITY: Alert and oriented MOTIVATION TO LEARN: Interested FAMILY SUPPORT: Unable to assess - Family not present INSTRUCTION PROVIDED TO: Patient PATIENT LEARNS BEST BY: Verbal Instruction FACTORS AFFECTING LEARNING: None PHYSICAL LIMITATIONS AFFECTING LEARNING: None LEARNING RESPONSE DIAGNOSIS: ADULT: Pending PATIENT/FAMILY RESPONSE: Verbalizes understanding of: PRE-PROCEDURE INSTRUCTIONS-Correct action to take to follow pre-procedure instructions METHOD OF INSTRUCTION: Verbal instruction FOLLOW-UP PLAN: Complete - No need for follow-up INSTRUCTIONAL AIDS USED: NA SUPPLEMENTAL MATERIAL PROVIDED TO PATIENT: None REFERRAL (RECOMMENDATION): None Electronically Signed By: Darryn Mcguire [facility] Upper GI endoscopyon 022 Upper GI endoscopy [facility] Gastrointestinal Endoscopy Patient Name: Pranav Kemp Procedure Date: 09/09/2022 12:39 PM Date of : 1955 Admit Type: Outpatient Age: 67 Room: [place] [address] Gender: Female Note Status: Finalized Attending MD: Lashell Peña MD Procedure: Upper GI endoscopy Indications: Surveillance procedure, Heartburn, Follow-up of esophageal reflux, Follow-up of esophagitis Providers: Lashell Peña MD, Lea Sepulveda RN, Aarti Aquino RN (Assisting Nurse) Patient Profile: This is a 67 year old female. Refer to note in patient chart for documentation of history and physical. Patient has symptoms of chronic heartburn. Referring Physician: Medicines: Monitored Anesthesia Care Complications: No immediate complications. Procedure: Pre-Anesthesia Assessment: - Prior to the procedure, a History and Physical was performed, and patient medications, allergies and sensitivities were reviewed. The patient's tolerance of previous anesthesia was reviewed. - The risks and benefits of the procedure and the sedation options and risks were discussed with the patient. All questions were answered and informed consent was obtained. - Patient identification and proposed procedure were verified prior to the procedure by the physician, the nurse and the flight hostess. The procedure was verified in the pre-procedure area. - Pre-procedure physical examination revealed no contraindications to sedation. - ASA Grade Assessment: II - A patient with mild systemic disease. - After reviewing the risks and benefits, the patient was deemed in satisfactory condition to undergo the procedure. - Monitored anesthesia care under the supervision of a FOUNDER CEO & PRESIDENT was determined to be medically necessary for this procedure based on review of the patient's medical history, medications, and prior anesthesia history. After obtaining informed consent, the endoscope was passed under direct vision. Throughout the procedure, the patient's blood pressure, pulse, and oxygen saturations were monitored continuously. The Endoscope was introduced through the mouth, and advanced to the second part of duodenum. The upper GI endoscopy was accomplished without difficulty. The patient tolerated the procedure well. Moderate Sedation: MAC anesthesia was administered by the anesthesia team. Total Procedure Duration: 0 hours 2 minutes 11 seconds Findings: A small hiatal hernia was present. There is no endoscopic evidence of esophagitis in the lower third of the esophagus. The stomach was normal. The examined duodenum was normal. Impression: - Small hiatal hernia. - Normal stomach. - Normal examined duodenum. - No specimens collected. Recommendation: - Perform an ERCP today. - Use Prilosec (omeprazole) 40 mg PO daily for 3 months. Procedure Code(s): --- Professional --- 17860, Esophagogastroduodenos copy, flexible, transoral; diagnostic, including collection of specimen(s) by brushing or washing, when performed (separate procedure) Diagnosis Code(s): --- Professional --- K44.9, Diaphragmatic hernia without obstruction or gangrene R12, Heartburn K21.9, Gastro-esophageal reflux disease without esophagitis K20.90, Esophagitis, unspecified without bleeding CPT copyright 2020 [employer]. All rights reserved. The codes documented in this report are preliminary and upon netsuite developer review may be revised to meet current compliance requirements. Attending Participation: I personally performed the entire procedure. Scope In: 12:51:29 PM Scope Out: 12:53:40 PM MD Lashell Larios Ala, MD 09/09/2022 12:56:19 PM This report has been signed electronically by Lashell Peña MD Number of Addenda: 0 Note Initiated On: 09/09/2022 12:39 PM Estimated Blood Loss: Estimated blood loss: none. [facility] XR ABDOMEN 1V SUPINEon 09-09 XR ABDOMEN 1V SUPINE * * *Final Report* * * DATE OF EXAM: Sep 09 2022 1:40PM FVO [id number] - XR ABDOMEN 1V SUPINE / PROCEDURE REASON: Post-operative / post-procedure assessment, asymptomatic * * * * Physician Interpretation * * * * HISTORY: Abdominal pain TECHNIQUE: Frontal views of the abdomen was performed. One image was archived. RESULT: The bowel gas pattern is nonobstructive. Air is seen in nondilated small and large bowel loops. No abnormal calcifications are identified. There is mild degenerative change of the lumbar spine. There are surgical clips in the right upper quadrant, compatible with prior cholecystectomy. IMPRESSION: NONOBSTRUCTIVE BOWEL GAS PATTERN. Weekend Caregiver: [facility] Transcribe Date/Time: Sep 09 2022 4:47P Dictated by : PITO URIBE MD This examination was interpreted and the report reviewed and electronically signed by: PITO URIBE MD on Sep 09 2022 4:50PM EST [id number] [facility] XR ERCP READ ONLYon 09-09-20 22 XR ERCP READ ONLY * * *Final Report* * * DATE OF EXAM: Sep 09 2022 1:09PM FVO [id number] - XR ERCP READ ONLY / PROCEDURE REASON: ABD. PAIN, ERCP * * * * Physician Interpretation * * * * HISTORY: Abdominal pain TECHNIQUE: Fluoroscopy was provided for ERCP, which was performed by Dr. Lashell Peña. RESULT: There is contrast opacification of the common bile, common hepatic and intrahepatic biliary radicals. No persistent filling defect is identified to suggest retained stone or stricture. Sphincterotomy was performed. Please refer to the procedural note. IMPRESSION: ERCP ABOVE. Weekend Caregiver: [facility] Transcribe Date/Time: Sep 09 2022 4:51P Dictated by : PITO URIBE MD This examination was interpreted and the report reviewed and electronically signed by: PITO URIBE MD on Sep 09 2022 4:54PM EST [id number] [facility] CT FACIAL BONES WO CONon CT FACIAL BONES WO CON EXAMINATION: CT F ACIAL BONES WO CON HISTORY: UNSPECIFIED INJURY OF FACE, INITIAL ENCOUNTER COMPARISON: None. TECHNIQUE: CT examination of the facial bones without IV contrast. Coronal and sagittal reformations were performed. Dose reduction techniques were achieved by using automated exposure control and/or adjustment of mA and/or kV according to patient size and/or use of iterative reconstruction technique. FINDINGS: There is no acute facial bone fracture. There are air-fluid levels in bilateral sphenoid sinuses as well as in the right maxillary sinus consistent with acute sinusitis. There is mild mucosal thickening in the ethmoidal air cells. There are multiple missing mandibular teeth and all the maxillary teeth are missing. Soft tissues appear unremarkable. IMPRESSION: 1. No acute facial bone fracture. 2. Sinusitis as described above. Electronically authenticated by: LAZARUS COELLO Date: 2022-08-18 19:57 Normal [facility] CBC panel Auto (Bld)on 07-04 Erythrocyte distribution width (RBC) [Ratio] 12.7 % Normal 11.5-15.0 [facility] Comment on above: Order Comment: [address] Type: BLOOD SPECIMEN Ordering Facility: [facility] Address: [address] [place] [address] Performed By: #### 5 8410-2 #### [facility] CLIA [id number] [address] [place] [address] [place] Hematocrit (Bld) [Volume fraction] 33.5 % Low 36.0-46.0 [facility] Comment on above: Order Comment: [address] Type: BLOOD SPECIMEN Ordering Facility: [facility] Address: [address] [place] [address] Performed By: #### 5 8410-2 #### [facility] CLIA [id number] [address] [place] [address] [place] Hemoglobin (Bld) [Mass/Vol] 11.1 g/dL Low 11.5-15.5 [facility] Comment on above: Order Comment: [address] Type: BLOOD SPECIMEN Ordering Facility: [facility] Address: [facility] [place] [address] Performed By: #### 5 8410-2 #### [facility] CLIA [id number] [address] [place] [address] [place] MCH (RBC) [Entitic mass] 32.1 pg Normal 26.0-34.0 [facility] Comment on above: Order Comment: Speci men Type: BLOOD SPECIMEN Ordering Facility: [facility] Address: [address] [place] [address] Performed By: #### 5 8410-2 #### [facility] CLIA [id number] [address] [place] [address] [place] MCHC (RBC) [Mass/Vol] 33.1 g/dL Normal 30.5-36.0 [facility] Comment on above: Order Comment: Speci men Type: BLOOD SPECIMEN Ordering Facility: [facility] Address: [address] [place] [address] Performed By: #### 5 8410-2 #### [facility] CLIA [id number] [address] [place] [address] [place] MCV (RBC) [Entitic vol] 96.8 fL Normal 80.0-100.0 [facility] Comment on above: Order Comment: Speci men Type: BLOOD SPECIMEN Ordering Facility: [facility] Address: [address] [place] [address] Performed By: #### 5 8410-2 #### [facility] CLIA [id number] [address] [place] [address] [place] Nucleated RBC (Bld) [#/Vol] 10*3/uL Normal <0.01 [facility] Comment on above: Order Comment: Speci men Type: BLOOD SPECIMEN Ordering Facility: [facility] Address: [address] [place] [address] Performed By: #### 5 8410-2 #### [facility] CLIA [id number] [address] [place] [address] [place] Platelet mean volume (Bld) [Entitic vol] 8.9 fL Low 9.0-12.7 [facility] Comment on above: Order Comment: Speci men Type: BLOOD SPECIMEN Ordering Facility: [facility] Address: [address] [place] [address] Performed By: #### 5 8410-2 #### [facility] CLIA [id number] [place] [address] [place] Platelets (Bld) [#/Vol] 200 10*3/uL Normal 150-400 [facility] Comment on above: Order Comment: Speci men Type: BLOOD SPECIMEN Ordering Facility: [facility] Address: [address] [place] [address] Performed By: #### 5 8410-2 #### [facility] CLIA [id number] [address] [place] [address] [place] RBC (Bld) [#/Vol] 3.46 10*6/uL Low 3.90-5.20 [facility] Comment on above: Order Comment: Speci men Type: BLOOD SPECIMEN Ordering Facility: [facility] Address: [address] [place] [address] Performed By: #### 5 8410-2 #### [facility] CLIA [id number] [address] [place] [address] STATES OF [facility] WBC (Bld) [#/Vol] 6.24 10*3/uL Normal 3.70-11.00 [facility] Comment on above: Order Comment: Speci men Type: BLOOD SPECIMEN Ordering Facility: [facility] Address: [address] [place] [address] Performed By: #### 5 8410-2 #### [facility] CLIA [id number] [address] [place] [address] [place] CNDSon 07-04-2022 CNDS HNO ID: [id number] Author: Gill García MD Service: General Surgery Author Type: Resident Type: Discharge Summary Filed: 07/05/2022 12:51 PM Note Text: Attestation signed by Gadiel Madsen MD at 07/06/2022 1:38 PM Attending Note I evaluated the patient and personally participated in the doan components. I agree with the resident's findings and plan as documented and have discussed the case and management of the patient's care with the resident. Patient s/p lap doreen with IOC on 07/02 found to have choledocholithiasis and s/p ERCP on 07/03. Now tolerating a diet without issue. Drain serosang after ERCP and removed. Patient appropriate for discharge to home. 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 OSH labs remarkable for no leukocytosis and mild transaminitis (AST 192, ALT 191, T bili 1.7). RUQ ultrasound showing evidence of cholelithiasis and CBD dilation to 10 mm. On arrival, repeat labs demonstrated normalization of LFTs (AST 46 ALT 123, ALP 115 and T bili 0.4). Patient was taken for lap doreen with IOC (07/02) which demonstrated a filling defect in the CBD. S/p ERCP on 07/03/22 - large stones removed x4 with findings of papillary stenosis which was treated with SEMS. EGD w/ esophagitis, started on PPI BID [id number]. Recommended to repeat EGD and ERCP in 2 months. CONSULTING TEAMS DURING HOSPITALIZATION: GI Transitions of Care Critical Issues: - follow up w/ GI for repeat EGD and ERCP in 2 months PATIENT CONDITION AT DISCHARGE: Stable DISCHARGE DISPOSITION: Home with Self Care WOUND/SURGICAL SITE CARE: DIET: Low soft-fiber diet: No fresh fruits, whole grains, foods difficult to digest, or vegetables (unless they are well-cooked) ACTIVITY: Resume pre-hospital activity FUTURE APPOINTMENTS: Future Appointments Date Time Provider Department Center 07/24/2022 12:45 PM VIVEK Huff [facility] 12/14/2022 2:00 PM MD KEVIN Romo [facility] 12/14/2022 2:15 PM WALLACE BILLY [facility] 12/14/2022 2:45 PM Andrea Miller [facility] DISCHARGE MEDICATION: Discharge Medication List as of 07/04/2022 2:21 PM START taking these medications oxyCODONE IR (ROXICODONE) 5 mg immediate release tablet Take 1 tablet by mouth every 8 hours as needed for pain. Normal, Disp-5 tablet, R-0 Dx: 1. Postoperative pain pantoprazole DR (PROTONIX) 40 mg tablet Take 1 tablet by mouth twice daily before meals (0600/1600). Normal, Disp-60 tablet, R-2, Long-term acetaminophen (TYLENOL) 325 mg tablet Take 2 tablets by mouth every 6 hours as needed for pain. OTC CONTINUE these medications which have NOT CHANGED albuterol HFA (PROVENTIL HFA, VENTOLIN HFA) 90 mcg/actuation inhaler Inhale as instructed. Historical Med, Long-term tamoxifen (NOLVADEX) 20 mg tablet Take 1 tablet (20 mg) by mouth once daily. Normal, Disp-90 tablet, R-3, Long-term Dx: 1. 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 Historical Med, Long-term loratadine (CLARITIN ORAL) Take by mouth. Historical Med Gill García MD [facility] CONSULT PROGon 07-04-2022 CONSULT PROG HNO ID: [id number] Author: Enoch Shetty APRN.CNP Service: Gastroenterology Author Type: Nurse Practitioner Type: Consult Progress Note Filed: 07/04/2022 1:01 PM Note Text: Brief Gi progress note Contacted RN regarding update on pt Pt then seen at bedside - no complaints of pain just gas pains Primary advanced diet this morning and tolerating without any pain If tolerates ok for D/C from GI standpoint Follow up with Dr. Rea in 2 months - office will contact to schedule Normal [facility] CONSULT PROG HNO ID: [id number] Author: Charles Reynolds RP Service: Pharmacy Author Type: Pharmacist Type: Consult Progress Note Filed: 07/04/2022 7:40 AM Note Text: PHARMACY PROGRESS NOTE Patient Name: Pranav Kemp Admission Date: 07/02/2022 Date of Consult: 07/04/2022 Time of Consult: 7:36 AM In accordance with the inpatient pharmacy consult agreement the following medication changes have been made: IV to PO Discontinue Protonix 40 mg IV BID, change to Protonix 40 mg PO BID per IV to PO guidelines. Pt tolerating advancing diet. Pharmacy will continue to monitor patient for continued eligibility of these medication changes. Please call with any questions or concerns. SIGNATURE: Charles Reynolds polina DATE/TIME: 07/04/2022 7:36 AM [facility] Comprehensive metabolic 2000 panelon 07-04-2022 Albumin [Mass/Vol] 3.0 g/dL Low 3.9-4.9 [facility] Comment on above: Order Comment: [address] Type: BLOOD SPECIMEN Ordering Facility: [facility] Address: [address] [place] [address] Performed By: #### 2 4323-8 #### [facility] CLIA [id number] [address] [place] [address] [place] ALP [Catalytic activity/Vol] 60 U/L Normal 34-123 [facility] Comment on above: Order Comment: [address] Type: BLOOD SPECIMEN Ordering Facility: [facility] Address: [address] [place] [address] Performed By: #### 2 4323-8 #### [facility] CLIA [id number] [address] [place] [address] [place] ALT [Catalytic activity/Vol] 56 U/L High 7-38 [facility] Comment on above: Order Comment: Speci men Type: BLOOD SPECIMEN Ordering Facility: [facility] Address: [address] [place] [address] Performed By: #### 2 4323-8 #### [facility] CLIA [id number] [address] [place] [address] [place] Anion gap [Moles/Vol] 9 mmol/L Normal 9-18 [facility] Comment on above: Order Comment: Speci men Type: BLOOD SPECIMEN Ordering Facility: [facility] Address: [address] [place] [address] Performed By: #### 2 4323-8 #### [facility] CLIA [id number] [address] [place] [address] [place] AST [Catalytic activity/Vol] 24 U/L Normal 13-35 [facility] Comment on above: Order Comment: Speci men Type: BLOOD SPECIMEN Ordering Facility: [facility] Address: [address] [place] [address] Performed By: #### 2 4323-8 #### [facility] CLIA [id number] [address] [place] [address] [place] Bilirubin [Mass/Vol] 0.4 mg/dL Normal 0.2-1.3 [facility] Comment on above: Order Comment: Speci men Type: BLOOD SPECIMEN Ordering Facility: [facility] Address: [address] [place] [address] Performed By: #### 2 4323-8 #### [facility] CLIA [id number] [address] [place] [address] [place] Calcium [Mass/Vol] 8.1 mg/dL Low 8.5-10.2 [facility] Comment on above: Order Comment: Speci men Type: BLOOD SPECIMEN Ordering Facility: [facility] Address: [address] [place] [address] Performed By: #### 2 4323-8 #### [facility] CLIA [id number] [place] [address] [place] Chloride [Moles/Vol] 108 mmol/L High 97-105 [facility] Comment on above: Order Comment: Speci men Type: BLOOD SPECIMEN Ordering Facility: [facility] Address: [address] [place] [address] Performed By: #### 2 4323-8 #### [facility] CLIA [id number] [address] [place] [address] [place] CO2 [Moles/Vol] 25 mmol/L Normal 22-30 [facility] Comment on above: Order Comment: Speci men Type: BLOOD SPECIMEN Ordering Facility: [facility] Address: [address] [place] [address] Performed By: #### 2 4323-8 #### [facility] CLIA [id number] [address] [place] [address] [place] Creatinine [Mass/Vol] 0.91 mg/dL Normal 0.58-0.96 [facility] Comment on above: Order Comment: Speci men Type: BLOOD SPECIMEN Ordering Facility: [facility] Address: [address] [place] [address] Performed By: #### 2 4323-8 #### [facility] CLIA [id number] [address] [place] [address] ESTIMATED GLOMERULAR FILTRATION RATE 69 mL/min/1.73m??? Normal >=60 [facility] Comment on above: Order Comment: Speci men Type: BLOOD SPECIMEN Ordering Facility: [facility] Address: [address] [place] [address] Result Comment: Yaneth mated Glomerular Filtration Rate (eGFR) is calculated using the 2020 CKD-EPI creatinine equation. This equation utilizes serum creatinine, sex, and age as parameters. The creatinine assay has traceable calibration to isotope dilution-mass spectrometry. Refer to KDIGO guidelines for clinical interpretation. In patients with unstable renal function, e.g. those with acute kidney injury, the eGFR may not accurately reflect actual GFR. Performed By: #### 2 4323-8 #### [facility] CLIA [id number] [address] [place] [address] [place] Glucose [Mass/Vol] 90 mg/dL Normal 74-99 [facility] Comment on above: Order Comment: [address] Type: BLOOD SPECIMEN Ordering Facility: [facility] Address: [address] [place] [address] Result Comment: The [place] Diabetes Association (ADA) provides guidance for cutoff values for fasting glucose and random glucose. The ADA defines fasting as no caloric intake for at least 8 hours. Fasting plasma glucose results between 100 to 125 mg/dL indicate increased risk for diabetes (prediabetes). Fasting plasma glucose results greater than or equal to 126 mg/dL meet the criteria for diagnosis of diabetes. In the absence of unequivocal hyperglycemia, results should be confirmed by repeat testing. In a patient with classic symptoms of hyperglycemia or hyperglycemic crisis, random plasma glucose results greater than or equal to 200 mg/dL meet the criteria for diagnosis of diabetes. Reference: Standards of Medical Care in Diabetes 2016, [place] [employer]. Diabetes Care. 2016.39(Suppl 1). Performed By: #### 2 4323-8 #### [facility] CLIA [id number] [address] [place] [address] [place] Potassium [Moles/Vol] 3.4 mmol/L Low 3.7-5.1 [facility] Comment on above: Order Comment: [address] Type: BLOOD SPECIMEN Ordering Facility: [facility] Address: [address] [place] [address] Performed By: #### 2 4323-8 #### [facility] CLIA [id number] [address] [place] [address] [place] Protein [Mass/Vol] 5.5 g/dL Low 6.3-8.0 [facility] Comment on above: Order Comment: [address] Type: BLOOD SPECIMEN Ordering Facility: [facility] Address: [address] [place] [address] Performed By: #### 2 4323-8 #### [facility] CLIA [id number] [address] [place] [address] [place] Sodium [Moles/Vol] 142 mmol/L Normal 136-144 [facility] Comment on above: Order Comment: Speci men Type: BLOOD SPECIMEN Ordering Facility: [facility] Address: [address] [address] Performed By: #### 2 4323-8 #### [facility] CLIA [id number] [address] [id number] [facility] Urea nitrogen [Mass/Vol] 9 mg/dL Normal 7-21 [facility] Comment on above: Order Comment: Speci men Type: BLOOD SPECIMEN Ordering Facility: [facility] Address: [address] [place] [address] Performed By: #### 2 4323-8 #### [facility] CLIA [id number] [address] [id number] [facility] [place] NURSING PROGon 07-04-2022 NURSING PROG HNO ID: [id number] Author: Gabriella Taylor RN Service: ? Author Type: Registered Nurse Type: Nursing Progress Note Filed: 07/04/2022 3:44 PM Note Text: Nursing Progress Note: Pt AANDO x 3. Pt OOB to chair. Pt ambulating independently in the room. Lap sites open to air with glue, dressing removed by LIP to umbilicus. KAYLAN drain producing bloody drainage. Educated pt on proper use of IS, pt able to demonstrate use of IS. Per GI note, hold anticoagulates/anti-pl atelets for 72 post-procedure, held heparin per LIP recommendation. 1100: LIP removed KAYLAN drain, guaze and tape present, no drainage. 1224: Lost IV access due to bleeding. 1225: Sent text page to surgical team, per pt request if need to have IV access since may be D/C. D/C orders in system, spoke with sx ok for D/C. 1544: Pt left unit in stable condition via wheelchair. Pt had all belongings. Reviewed discharge instructions with pt and spouse, all questions addressed. Normal [facility] ANES POSTPROC EVALon 022 ANES POSTPROC EVAL HNO ID: [id number] Author: Sharri Joel MD Service: Anesthesiology Author Type: Physician Type: Anesthesia Postprocedure Evaluation Filed: 07/05/2022 10:41 AM Note Text: POST ANESTHESIA EVALUATION NOTE : 1955 Procedure Summary Date: 07/03/22 Room / Location: [facility] Endoscopy - ENDO Anesthesia Start: 1334 Anesthesia Stop: 1502 Procedure: ERCP Diagnosis: (Melena) Scheduled Providers: Lashell Peña MD; Obdulio Ji APRN.FOUNDER CEO & PRESIDENT; Sharri Joel MD Responsible Provider: Sharri Joel MD Anesthesia Type: general ASA Status: 3 Anesthesia Type: general Airway Type: ETT Last Vitals Vitals Value Taken Time BP 153/98 07/03/22 1535 Temp 36.1 ?C (97 ?F) 07/03/22 1457 HR SpO2 72 07/03/22 1535 Resp 14 07/03/22 1535 SpO2 98 % 07/03/22 1535 Post Anesthesia Patient Status Patient Evaluation: bedside. Anticipated Disposition: inpatient floor planned admission. Neurological Status: aware and responsive. Pulmonary Status: breathing comfortably on supplemental oxygen Airway Control: returned to baseline unsupported. Cardiovascular Status: stable. Pain Management: clinically adequate Postoperative Hydration: acceptable. Intraoperative Events: no significant anesthesia events Post Operative Nausea/Vomiting Status: no significant post operative nausea or vomiting Anesthetic Observations: Recommendation: continue current plan of care. Anesthesia Observations No Documentation SIGNATURE: Sharri Joel MD PATIENT NAME: Pranav Kemp DATE: July 05, 2022 TIME: 10:41 AM CSN: [id number] Normal [facility] ANES PRE-OPon 07-03-2022 ANES PRE-OP HNO ID: [id number] Author: Sharri Joel MD Service: Anesthesiology Author Type: Physician Type: Anesthesia Preprocedure Evaluation Filed: 07/03/2022 12:59 PM Note Text: ANESTHESIOLOGY DAY OF SURGERY NOTE : 1955 Procedure Information Date/Time: 07/03/22 1245 Scheduled providers: Lashell Peña MD; Obdulio Ji APRN.FOUNDER CEO & PRESIDENT; Sharri Joel MD Procedure: ERCP Location: [facility] Endoscopy - ENDO Estimated body mass index is 30.58 kg/m? as calculated from the following: Height as of 05/22/22: 167.6 cm (5' 5.98 ). Weight as of 05/22/22: 85.9 kg (189 lb 6.4 oz). 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 At OSH, no leukocytosis, elevated LFTs w/ Tbili: 1.7, AST: 192, ALT: 191, RUQ US showed cholelithiasis and CBD of 10 mm s/p laparoscopic cholecystectomy w/ IOC on 07/02/2022 which was suspicious for filling defect in distal CBD and is now here for ERCP. At the time of examination, the patient is currently wearing a scopolamine patch from her anesthetic yesterday because of her history of motion sickness. I - PHYSICAL EVALUATION AIRWAY Patient intubated: No. Tracheostomy tube not present Mallampati: II. TM distance: >3 FB. Neck ROM: full ROM without neurological symptoms. Mouth opening: adequate. Short neck: no. Thick neck: no DENTAL Dentures, upper: complete. Additional comments: Lower front incisors. Additional exam findings: yes. CARDIOVASCULAR Rhythm: regular PULMONARY Breath sounds clear to auscultation. Rhonchi not present. II - ANESTHESIA PLAN ASA Score: 3 Anesthetic Plan: general Airway type: ETT The patient is not a current smoker. NPO Status: adequate Monitoring plan: standard ASA.Anesthetic plan additional comments: Will administer IV Zofran and decadron in addition to keeping scopolamine patch in place for PONV prophylaxis. Postoperative analgesic plan: parenteral or oral opioids. Patient / Surrogate agrees to blood products: Yes DNR status reviewed with patient and/or family prior to surgery. patient elects to suspend DNR status in the perioperative setting (Full Code). Significant changes in the patient condition since the History and Physical, not otherwise documented in primary service progress note: no. Potential Anesthesia issues that may suggest increased risk of complications or contraindication to planned procedure: none. Vitals Value Taken Time BP 152/55 07/03/22 1210 Pulse 71 07/03/22 1210 Resp 19 07/03/22 1210 Temp 36.4 ?C (97.5 ?F) 07/03/22 1210 SpO2 100 % 07/03/22 1210 Facility-Administered Medications as of 07/03/2022 Medication Dose Route Frequency - [COMPLETED] potassium chloride ER 40 mEq tab(s) (K-DUR, KLOR-CON) 40 mEq ORAL ONCE - heparin 5,000 Units injection 5,000 Units SUBCUTANEOUS q 12 H - NaCl 0.9% iv flush bag 20 mL INTRAVENOUS PRN - sodium chloride 0.9 % (flush) 3-5 mL (BD POSIFLUSH) 3-5 mL INTRAVENOUS q 12 H - lactated ringers iv infusion 75 mL/hr INTRAVENOUS CONTINUOUS - pantoprazole 40 mg injection (PROTONIX) 40 mg INTRAVENOUS DAILY (6 AM) - tamoxifen 20 mg tab(s) (NOLVADEX) 20 mg ORAL DAILY - piperacillin-tazobacta m iv piggyback 3.375 g in dextrose (iso-osmotic) 50 mL (ZOSYN) 3.375 g INTRAVENOUS q 6 H - oxyCODONE IR 5 mg tab(s) (ROXICODONE) 5 mg ORAL q 6 H PRN - ondansetron (PF) 4 mg injection (ZOFRAN) 4 mg INTRAVENOUS q 6 H PRN - [COMPLETED] piperacillin-tazobacta m iv piggyback 3.375 g in dextrose (iso-osmotic) 50 mL (ZOSYN) 3.375 g INTRAVENOUS ONCE - [COMPLETED] oxyCODONE IR 5-10 mg tab(s) (ROXICODONE) 5-10 mg ORAL PRN - acetaminophen 650 mg tab(s) (TYLENOL) 650 mg ORAL q 6 H - [COMPLETED] methocarbamol 1 g injection (ROBAXIN) 1 g INTRAVENOUS ONCE Outpatient Medications as of 07/03/2022 Medication Sig - albuterol HFA (PROVENTIL HFA, VENTOLIN HFA) 90 mcg/actuation inhaler Inhale as instructed. - acetaminophen (TYLENOL) 325 mg tablet Take 2 tablets by mouth every 6 hours as needed for pain. - tamoxifen (NOLVADEX) 20 mg tablet Take 1 tablet (20 mg) by mouth once daily. - losartan (COZAAR) 25 mg tablet Take 25 mg by mouth once daily. - loratadine (CLARITIN ORAL) Take by mouth. I have interviewed and examined the patient. I have reviewed the medical record and/or the pre-anesthesia evaluation, pertinent labs, and test results. This contains updated information obtained within 48 hours of Surgery/Procedure. SIGNATURE: Sharri Joel MD PATIENT NAME: Pranav Kemp DATE: July 03, 2022 TIME: 12:28 PM CSN: [id number] [facility] BRIEF OP NOTon 07-03-2022 BRIEF OP NOT HNO ID: [id number] Author: Lashell Peña MD Service: Gastroenterology Author Type: Physician Type: Brief Op Note Filed: 07/03/2022 3:21 PM Note Text: ERCP note Large stones removed post sphincterotomy using a Trapezoid basket and balloon extraction. 4 large stones were removed (up to 1 cm). + papillary stenosis. Placed a 10 mm x 6 cm covered SEMS to treat the papillary stenosis. Repeat EGD and ERCP in 2 months. PPI BID high dose. Avoid AC or anti-platelets for 72 hours post sphincterotomy DVT PPX as per primary team in the interim Clear liquid diet today Advance tomorrow as tolerated Lashell Peña MD, FACP Staff, Interventional Endoscopy Department of Gastroenterology, Hepatology AND Nutrition Digestive Disease and Surgery [facility] CBC panel Auto (Bld)on 07-03 Erythrocyte distribution width (RBC) [Ratio] 12.4 % Normal 11.5-15.0 [facility] Comment on above: Order Comment: [address] Type: BLOOD SPECIMEN Ordering Facility: [facility] Address: [address] [address] Performed By: #### 5 8410-2 #### [facility] CLIA [id number] [address] [place] [address] [place] Hematocrit (Bld) [Volume fraction] 38.4 % Normal 36.0-46.0 [facility] Comment on above: Order Comment: [address] Type: BLOOD SPECIMEN Ordering Facility: [facility] Address: [address] [address] Performed By: #### 5 8410-2 #### [facility] CLIA [id number] [place] [address] [place] Hemoglobin (Bld) [Mass/Vol] 12.8 g/dL Normal 11.5-15.5 [facility] Comment on above: Order Comment: Speci men Type: BLOOD SPECIMEN Ordering Facility: [facility] Address: [address] [place] [address] Performed By: #### 5 8410-2 #### [facility] CLIA [id number] [address] [place] [address] MCH (RBC) [Entitic mass] 32.0 pg Normal 26.0-34.0 [facility] Comment on above: Order Comment: Speci men Type: BLOOD SPECIMEN Ordering Facility: [facility] Address: [address] [place] [address] Performed By: #### 5 8410-2 #### [facility] CLIA [id number] [address] [place] [address] [place] MCHC (RBC) [Mass/Vol] 33.3 g/dL Normal 30.5-36.0 [facility] Comment on above: Order Comment: Speci men Type: BLOOD SPECIMEN Ordering Facility: [facility] Address: [address] [place] [address] Performed By: #### 5 8410-2 #### [facility] CLIA [id number] [address] [place] [address] MCV (RBC) [Entitic vol] 96.0 fL Normal 80.0-100.0 [facility] Comment on above: Order Comment: Speci men Type: BLOOD SPECIMEN Ordering Facility: [facility] Address: [address] [place] [address] Performed By: #### 5 8410-2 #### [facility] LABORATORY CLIA [id number] [address] [place] [address] Nucleated RBC (Bld) [#/Vol] 10*3/uL Normal <0.01 [facility] Comment on above: Order Comment: Speci men Type: BLOOD SPECIMEN Ordering Facility: [facility] Address: [address] [place] [address] Performed By: #### 5 8410-2 #### [facility] CLIA [id number] [address] [place] [address] [place] Platelet mean volume (Bld) [Entitic vol] 8.9 fL Low 9.0-12.7 [facility] Comment on above: Order Comment: Speci men Type: BLOOD SPECIMEN Ordering Facility: [facility] Address: [address] [place] [address] Performed By: #### 5 8410-2 #### [facility] CLIA [id number] [address] [place] [address] [place] Platelets (Bld) [#/Vol] 267 10*3/uL Normal 150-400 [facility] Comment on above: Order Comment: Speci men Type: BLOOD SPECIMEN Ordering Facility: [facility] Address: [address] [place] [address] Performed By: #### 5 8410-2 #### [facility] CLIA [id number] [address] [place] [address] [place] RBC (Bld) [#/Vol] 4.00 10*6/uL Normal 3.90-5.20 [facility] Comment on above: Order Comment: Speci men Type: BLOOD SPECIMEN Ordering Facility: [facility] Address: [address] [place] [address] Performed By: #### 5 8410-2 #### [facility] CLIA [id number] [address] [place] [address] [place] WBC (Bld) [#/Vol] 8.72 10*3/uL Normal 3.70-11.00 [facility] Comment on above: Order Comment: Speci men Type: BLOOD SPECIMEN Ordering Facility: [facility] Address: [address] [place] [address] Performed By: #### 5 8410-2 #### [facility] CLIA [id number] [address] [place] [address] [place] CONSULTon 07-03-2022 CONSULT HNO ID: [id number] Author: Angy Hermosillo APRN.ACCOUNTING GENERALIST Service: Gastroenterology Author Type: Nurse Practitioner Type: Consults Filed: 07/03/2022 10:40 AM Note Text: CONSULT: GASTROENTEROLOGY SERVICE SERVICE DATE: 07/03/2022 SERVICE TIME: 9:26 AM REASON FOR CONSULT: +IOC REQUESTING PHYSICIAN: Dr. Hazel PRIMARY CARE PHYSICIAN: Yesica Mcguire MD Subjective Ms. 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 At OSH, no leukocytosis, elevated LFTs w/ Tbili: 1.7, AST: 192, ALT: 191, RUQ US showed cholelithiasis and CBD of 10 mm. Pt. Underwent laparoscopic cholecystectomy w/ IOC which was suspicious for filling defect in distal CBD. GI consulted for evaluation of + IOC. Pt reports symptoms initially started after eating a baked potato. Associated with nausea and vomiting. Reports episode of bloody vomit prior to admission. Denies fever, chills, chest pain, sob, dysphagia, odynophagia, dyspepsia, melena, hematochezia, or weight changes. No previous abdominal surgeries. Denies AC use. Denies nicotine, etoh, or illicit drug use. Personal hx of breast cancer, father with esophageal and stomach cancer. No hx of EGD or colonoscopy. Impression/Recommendat ions Ms. 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 At OSH, no leukocytosis, elevated LFTs w/ Tbili: 1.7, AST: 192, ALT: 191, RUQ US showed cholelithiasis and CBD of 10 mm. Pt. Underwent laparoscopic cholecystectomy w/ IOC which was suspicious for filling defect in distal CBD. GI consulted for evaluation of + IOC. S/p lap cholecystectomy POD #1 Choledocholithiasis POA: Yes Obesity, Class I, BMI 30-34.9 POA: Unknown -07/02 s/p lap doreen Findings: umbilical hernia, chronic cholecystitis, filling defect in CBD noted on IOC -afebrile, HDS; ABD EXAM: soft, +mild tenderness throughout, + KAYLAN drain w/ sanguinous OP, BS + -LABS:No leukocytosis, Hgb: 14.0->12.8, platelet: 267; INR: 0.9; Tbili: 0.4->0.4, AP: 115->82, ALT: 123->85, AST: 46->35; COVID 19 (-) PLAN: -NPO for procedure today -c/w empiric antibx-> IV zosyn -supportive care with IVFs, PPI, pain control prn, bowel regimen, OOB/ambulation as condition allows, IS WA -Hold AM dose of sq heparin -order placed -Plan for ERCP today, procedure/risks/benefi ts/complications explained to patient agreeable to proceed, at bedside -repeat labs in am CBC, CMP -will follow along -Case to be d/w Attending: Dr. Castro, d/w on-call advanced: Dr. Rea FUNCTIONAL STATUS: Independent PAST MEDICAL HISTORY Diagnosis Date Asthma DCIS (ductal carcinoma in situ) 2020 Varicose veins of both lower extremities PAST SURGICAL HISTORY Procedure Laterality Date BREAST LUMPECTOMY HX Left 2020 HYSTERECTOMY HX 1989 LAPS SURG CHOLECYSTECTOMY W/CHOLANGIOGRAPHY 07/02/2022 PAST SURGICAL HISTORY OF Bilateral 06/10/2012 Laser iridotomy REPAIR ELBOW FRACTURE VEIN SURGERY (SPECIFY LOCATION) HX Dr. John Das FAMILY HISTORY Problem Relation Age of Onset Alzheimer's Disease Mother Cataract Father Glaucoma Father other (esophageal cancer) Father other (stomach cancer) Father Social History Tobacco Use Smoking status: Former Types: Cigarettes Quit date: 06/03/1986 Years since quittin.1 Smokeless tobacco: Never Substance Use Topics Alcohol use: Not Currently Comment: Socially Drug use: No albuterol HFA (PROVENTIL HFA, VENTOLIN HFA) 90 mcg/actuation inhaler, Inhale as instructed., Disp: , Rfl: , Past Week tamoxifen (NOLVADEX) 20 mg tablet, Take 1 tablet (20 mg) by mouth once daily., Disp: 30 tablet, Rfl: 0 tamoxifen (NOLVADEX) 20 mg tablet, Take 1 tablet (20 mg) by mouth once daily., Disp: 90 tablet, Rfl: 3, 06/29/2022 losartan (COZAAR) 25 mg tablet, Take 25 mg by mouth once daily., Disp: , Rfl: , 06/29/2022 loratadine (CLARITIN ORAL), Take by mouth., Disp: , Rfl: , Unknown Current Facility-Administered Medications Medication Dose Route Frequency heparin 5,000 Units injection 5,000 Units SUBCUTANEOUS q 12 H NaCl 0.9% iv flush bag 20 mL INTRAVENOUS PRN sodium chloride 0.9 % (flush) 3-5 mL (BD POSIFLUSH) 3-5 mL INTRAVENOUS q 12 H lactated ringers iv infusion 75 mL/hr INTRAVENOUS CONTINUOUS pantoprazole 40 mg injection (PROTONIX) 40 mg INTRAVENOUS DAILY (6 AM) tamoxifen 20 mg tab(s) (NOLVADEX) 20 mg ORAL DAILY piperacillin-tazobacta m iv piggyback 3.375 g in dextrose (iso-osmotic) 50 mL (ZOSYN) 3.375 g INTRAVENOUS q 6 H oxyCODONE IR 5 mg tab(s) (ROXICODONE) 5 mg ORAL q 6 H PRN ondansetron (PF) 4 mg injection (ZOFRAN) 4 mg INTRAVENOUS q 6 H PRN acetaminophen 650 mg tab(s) (TYLENOL) 650 mg ORAL q 6 H methocarbamol 1 g injection (ROBAXIN) 1 g INTRAVENOUS ONCE Allerg (more content not included)... Normal [facility] Comprehensive metabolic 2000 panelon 07-03-2022 Albumin [Mass/Vol] 3.5 g/dL Low 3.9-4.9 [facility] Comment on above: Order Comment: Speci men Type: BLOOD SPECIMENOrdering Facility: [facility] Address: [address] [place] [address] Performed By: #### 2 4323-8 ####[facility] [id number] [place] [address] [place] ALP [Catalytic activity/Vol] 82 U/L Normal 34-123 [facility] Comment on above: Order Comment: Speci men Type: BLOOD SPECIMENOrdering Facility: [facility] Address: [address] [address] Performed By: #### 2 4323-8 ####[facility] [id number] [place] [address] [place] ALT [Catalytic activity/Vol] 85 U/L High 7-38 [facility] Comment on above: Order Comment: Speci men Type: BLOOD SPECIMENOrdering Facility: [facility] Address: [address] [place] [address] Performed By: #### 2 4323-8 ####[facility]ORY[facility] [id number] [place] [address] [place] Anion gap [Moles/Vol] 13 mmol/L Normal 9-18 [facility] Comment on above: Order Comment: Speci men Type: BLOOD SPECIMENOrdering Facility: [facility] Address: [address] [place] [address] Performed By: #### 2 4323-8 ####[facility]ORYCLIA [id number] [address] [place] AST [Catalytic activity/Vol] 35 U/L Normal 13-35 [facility] Comment on above: Order Comment: Speci men Type: BLOOD SPECIMENOrdering Facility: [facility] Address: [address] [place] [address] Performed By: #### 2 4323-8 ####[facility]ORYCLIA [id number] [place] [address] [place] Bilirubin [Mass/Vol] 0.4 mg/dL Normal 0.2-1.3 [facility] Comment on above: Order Comment: Speci men Type: BLOOD SPECIMENOrdering Facility: [facility] Address: [address] [place] [address] Performed By: #### 2 4323-8 ####[facility]ORYCLIA [id number] [place] [address] [place] Calcium [Mass/Vol] 8.7 mg/dL Normal 8.5-10.2 [facility] Comment on above: Order Comment: Speci men Type: BLOOD SPECIMENOrdering Facility: [facility] Address: [address] [place] [address] Performed By: #### 2 4323-8 ####[facility]ORYCLIA [id number] [place] [address] [place] Chloride [Moles/Vol] 107 mmol/L High 97-105 [facility] Comment on above: Order Comment: Speci men Type: BLOOD SPECIMENOrdering Facility: [facility] Address: [address] [place] [address] Performed By: #### 2 4323-8 ####[facility] [id number] [place] [address] [place] CO2 [Moles/Vol] 22 mmol/L Normal 22-30 [facility] Comment on above: Order Comment: Speci men Type: BLOOD SPECIMENOrdering Facility: [facility] Address: [address] [place] [address] Performed By: #### 2 4323-8 ####[facility]ORYCLIA [id number] [place] [address] [place] Creatinine [Mass/Vol] 0.98 mg/dL High 0.58-0.96 [facility] Comment on above: Order Comment: Speci men Type: BLOOD SPECIMENOrdering Facility: [facility] Address: [address] [place] [address] Performed By: #### 2 4323-8 ####[facility]ORYCLIA [id number] [address] [place] ESTIMATED GLOMERULAR FILTRATION RATE 63 mL/min/1.73m??? Normal >=60 [facility] Comment on above: Order Comment: Speci men Type: BLOOD SPECIMENOrdering Facility: [facility] Address: [address] [place] [address] Result Comment: Yaneth mated Glomerular Filtration Rate (eGFR) is calculated using the 2020 CKD-EPI creatinine equation. This equation utilizes serum creatinine, sex, and age as parameters. The creatinine assay has traceable calibration to isotope dilution-mass spectrometry. Refer to KDIGO guidelines for clinical interpretation. In patients with unstable renal function, e.g. those with acute kidney injury, the eGFR may not accurately reflect actual GFR. Performed By: #### 2 4323-8 ####[facility]ATORYCLIA [id number] [place] [address] [place] Glucose [Mass/Vol] 98 mg/dL Normal 74-99 [facility] Comment on above: Order Comment: [address] Type: BLOOD SPECIMENOrdering Facility: [facility] Address: [address] [place] [address] Result Comment: The [place] Diabetes Association (ADA) provides guidance for cutoff values for fasting glucose and random glucose. The ADA defines fasting as no caloric intake for at least 8 hours. Fasting plasma glucose results between 100 to 125 mg/dL indicate increased risk for diabetes (prediabetes). Fasting plasma glucose results greater than or equal to 126 mg/dL meet the criteria for diagnosis of diabetes. In the absence of unequivocal hyperglycemia, results should be confirmed by repeat testing. In a patient with classic symptoms of hyperglycemia or hyperglycemic crisis, random plasma glucose results greater than or equal to 200 mg/dL meet the criteria for diagnosis of diabetes. Reference: Standards of Medical Care in Diabetes 2016, [place] [employer] Association. Diabetes Care. 2016.39(Suppl 1). Performed By: #### 2 4323-8 ####[facility]ATORYCLIA [id number] [place] [address] [place] Potassium [Moles/Vol] 3.6 mmol/L Low 3.7-5.1 [facility] Comment on above: Order Comment: [address] Type: BLOOD SPECIMENOrdering Facility: [facility] Address: [address] [place] [address] Performed By: #### 2 4323-8 ####[facility]IA [id number] [place] [id number] [place] Protein [Mass/Vol] 6.2 g/dL Low 6.3-8.0 [facility] Comment on above: Order Comment: [address] Type: BLOOD SPECIMENOrdering Facility: [facility] Address: [address] [place] [address] Performed By: #### 2 4323-8 ####[facility]ATORYCLIA [id number] [place] [address] [place] Sodium [Moles/Vol] 142 mmol/L Normal 136-144 [facility] Comment on above: Order Comment: Speci men Type: BLOOD SPECIMENOrdering Facility: [facility] Address: [address] Performed By: #### 2 4323-8 ####[facility]ORYCLIA [id number] [place] [id number] [place] [facility] Urea nitrogen [Mass/Vol] 8 mg/dL Normal 7- [facility] Comment on above: Order Comment: Speci men Type: BLOOD SPECIMENOrdering Facility: [facility] Address: [address] Performed By: #### 2 4323-8 ####[facility]ORYCLIA [id number] [place] [id number] [place] ERCPon 07-03-2022 ERCP [facility] Gastrointestinal Endoscopy Patient Name: Pranav Kemp Procedure Date: 07/03/2022 2:00 PM Date of : 1955 Admit Type: Inpatient Age: 66 Room: [place] [address] Gender: Female Note Status: Canteen Operator Override Attending MD: Lashell Peña MD Procedure: ERCP Indications: Common bile duct stone(s), Filling defect on intraoperative cholangiogram, Elevated liver enzymes Providers: Lashell Peña MD, Enriqueta Canales RN, Enriqueta Guzman RN, Chiquis Robin RN (Assisting Nurse), Tricia Hoang RN (Assisting Orientee) Patient Profile: This is a 66 year old female. Refer to note in patient chart for documentation of history and physical. + IOC post cholecystectomy yesterday with a large filling defect. This patient has no history of previous ERCP. Referring Physician: Angy Shin (truck repair service estimatorTanvi Hermosillo (Referring MD) Medicines: Propofol per Anesthesia Complications: No immediate complications. Requesting Provider: Kristen Castro MD Procedure: Pre-Anesthesia Assessment: - Prior to the procedure, a History and Physical was performed, and patient medications, allergies and sensitivities were reviewed. The patient's tolerance of previous anesthesia was reviewed. - The risks and benefits of the procedure and the sedation options and risks were discussed with the patient. All questions were answered and informed consent was obtained. - Patient identification and proposed procedure were verified prior to the procedure by the physician, the nurse and the flight hostess. The procedure was verified in the pre-procedure area. - Pre-procedure physical examination revealed no contraindications to sedation. - ASA Grade Assessment: III - A patient with severe systemic disease. - General anesthesia under the supervision of a FOUNDER CEO & PRESIDENT was determined to be medically necessary for this procedure based on review of the patient's medical history, medications, and prior anesthesia history. After obtaining informed consent, the scope was passed under direct vision. Throughout the procedure, the patient's blood pressure, pulse, and oxygen saturations were monitored continuously. The Endoscope was introduced through the mouth, and advanced to the duodenum and used to cannulate the bile duct. The ERCP was somewhat difficult due to challenging cannulation because of papillary stenosis and a small papilla. The patient tolerated the procedure well. The procedure was determined to be ASGE Complexity Level 3. Moderate Sedation: General anesthesia MAC anesthesia was administered by the anesthesia team. Total Procedure Duration: 0 hours 41 minutes 11 seconds Findings: A telephone station installer film of the abdomen was obtained. One percutaneous drain ending in the Right upper quadrant was seen. Surgical clips, consistent with previous cholecystectomy, were seen in the area of the right upper quadrant of the abdomen. The major papilla was small (nipple papilla). Wire-guided cannulation was performed. The bile duct was deeply cannulated with the short-nosed traction sphincterotome. Contrast was injected. I personally interpreted the bile duct images. There was brisk flow of contrast through the ducts. Image quality was excellent. Contrast extended to the hepatic ducts. The lower third of the main bile duct and middle third of the main bile duct contained filling defects thought to be at least two large stones. The middle third of the main bile duct and upper third of the main bile duct were moderately dilated and diffusely dilated. The largest diameter was 10 mm. The biliary orifice was stenotic. This appeared benign. A 0.025 inch x 270 cm straight Visiglide wire was passed into the biliary tree. A 5 mm biliary sphincterotomy was made with a monofilament traction (standard) sphincterotome using ERBE electrocautery. There was no post-sphincterotomy bleeding. The biliary tree was swept with an 11.5 mm balloon, 13.5 mm balloon and basket starting at the bifurcation. Sludge was swept from the duct. Four stones were removed (ranging from 5-10 mm stones). No stones remained. Preparations were made for cholangiography using balloon occlusion technique. A balloon-tipped catheter was advanced to the hepatic duct bifurcation. The balloon was inflated to 13 mm in size. Contrast was then injected into the biliary tree and opacified the entire biliary tree except for the gallbladder. The common bile duct contained no stones. The biliary orifice was stenotic (contrast did not drain spontaneously post sphincterotomy). This appeared benign. One 10 mm by 6 cm covered metal stent with no external flaps and no internal flaps was placed 5 cm into the common bile duct to treat the papillary stenosis. Bile flowed through the stent. The stent was in good position. The pancreatic duct was not injected during this procedure. Impression: - The major papilla appeared (more content not included)... [facility] NURSING PROGon 07-03-2022 NURSING PROG HNO ID: [id number] Author: Flores Spencer RN Service: ? Author Type: Registered Nurse Type: Nursing Progress Note Filed: 07/03/2022 3:08 PM Note Text: PATIENT EDUCATION TOPIC: PROCEDURE / SURGERY: Procedure/Surgery: Post op ERCP and EGD PATIENT NAME: Pranav Kemp PATIENT LOCATION: [facility] ENDO POOL/[facility] ENDO POOL READINESS TO LEARN COGNITIVE ABILITY: Alert and oriented MOTIVATION TO LEARN: Interested FAMILY SUPPORT: Unable to assess - Family not present INSTRUCTION PROVIDED TO: Patient PATIENT LEARNS BEST BY: Individual Instruction Verbal Instruction FACTORS AFFECTING LEARNING: None PHYSICAL LIMITATIONS AFFECTING LEARNING: None LEARNING RESPONSE DIAGNOSIS: ADULT: Post Op ERCP and EGD PATIENT/FAMILY RESPONSE: Verbalizes understanding of: Post op Instructions. METHOD OF INSTRUCTION: Individual instruction Verbal instruction FOLLOW-UP PLAN: Complete - No need for follow-up INSTRUCTIONAL AIDS USED: NA SUPPLEMENTAL MATERIAL PROVIDED TO PATIENT: None REFERRAL (RECOMMENDATION): None Electronically Signed By: Flores Spencer Other: Post op ERCP/EGD [facility] NURSING PROG HNO ID: [id number] Author: Yessica Villaseñor RN Service: ? Author Type: Registered Nurse Type: Nursing Progress Note Filed: 07/02/2022 10:58 PM Note Text: Daily Note (late entry): 2032: Text page to instructor adjunct surgical technician preparation plant repairer to make aware pt complaining of ongoing pain but not due for PRN Oxy at this time. -Orders received and pt medicated per MAR. Normal [facility] SURGICAL PATHOLOGYon 022 CASE REPORT Normal [facility] Comment on above: Order Comment: Speci men Type: BLOOD SPECIMEN Ordering Facility: [facility] Address: [address] [place] [address] Result Comment: Surg ical Pathology Report Case: [id number] Authorizing Provider: Lashell Peña MD Collected: 07/03/2022 01:51 PM Ordering Location: [facility] Received: 07/03/2022 03:36 PM Endoscopy - ENDO Pathologist: Heather Fitzpatrick MD Specimen: STOMACH BIOPSY, r/o h.pylori Performed By: #### 2 4323-8 #### [facility] CLIA [id number] [address] [place] [address] FINAL DIAGNOSIS Normal [facility] Comment on above: Order Comment: Speci men Type: BLOOD SPECIMEN Ordering Facility: [facility] Address: [address] [place] [address] Result Comment: Stom ach, biopsy: - Gastric antral and fundic mucosa with no significant diagnostic alteration. Performed By: #### 2 4323-8 #### [facility] CLIA [id number] [address] [place] [address] FINAL PERFORMING LAB Normal [facility] Comment on above: Order Comment: Speci men Type: BLOOD SPECIMEN Ordering Facility: [facility] Address: [address] [place] [address] Result Comment: Diag nostic interpretation performed at [facility], [address] [place] [address] CLIA# [id number] Food Service Hotel Runner: Elvin Felipe M.D. Performed By: #### 2 4323-8 #### [facility] CLIA [id number] [address] [place] [address] GROSS DESCRIPTION Normal [facility] Comment on above: Order Comment: Speci men Type: BLOOD SPECIMEN Ordering Facility: [facility] Address: [address] [place], [place] [id number] Result Comment: A. S TOMACH BIOPSY Received in formalin are multiple pieces of will, soft tissue aggregating to 1.2 x 0.3 x 0.2 cm. Totally submitted in one cassette. Gross examination performed at [facility], [address] [place] [address] TTN 07/03/2022 7:22 PM Performed By: #### 2 4323-8 #### [facility] CLIA [id number] [address] [place] [address] [facility] Upper GI endoscopyon 022 Upper GI endoscopy [facility] Gastrointestinal Endoscopy Patient Name: Pranav Kemp Procedure Date: 07/03/2022 1:11 PM Date of : 1955 Admit Type: Inpatient Age: 66 Room: [place] [address] Gender: Female Note Status: Canteen Operator Override Attending MD: Lashell Peña MD Procedure: Upper GI endoscopy Indications: Melena Providers: Lashell Peña MD, Enriqueta Canales RN, Enriqueta Guzman RN, Chiquis Robin RN (Assisting Nurse), Tricia Hoang RN, (assisting nurse orientee) Patient Profile: This is a 66 year old female. Refer to note in patient chart for documentation of history and physical. Patient has symptoms. Referring Physician: Angy Snowtruck repair service estimatorTanvi Hermosillo (Referring MD) Medicines: Monitored Anesthesia Care Complications: No immediate complications. Procedure: Pre-Anesthesia Assessment: - Prior to the procedure, a History and Physical was performed, and patient medications, allergies and sensitivities were reviewed. The patient's tolerance of previous anesthesia was reviewed. - The risks and benefits of the procedure and the sedation options and risks were discussed with the patient. All questions were answered and informed consent was obtained. - Patient identification and proposed procedure were verified prior to the procedure by the physician, the nurse and the flight hostess. The procedure was verified in the pre-procedure area. - Pre-procedure physical examination revealed no contraindications to sedation. - ASA Grade Assessment: III - A patient with severe systemic disease. - After reviewing the risks and benefits, the patient was deemed in satisfactory condition to undergo the procedure. - Monitored anesthesia care under the supervision of a FOUNDER CEO & PRESIDENT was determined to be medically necessary for this procedure based on review of the patient's medical history, medications, and prior anesthesia history. After obtaining informed consent, the endoscope was passed under direct vision. Throughout the procedure, the patient's blood pressure, pulse, and oxygen saturations were monitored continuously. The Endoscope was introduced through the mouth, and advanced to the duodenum second part of duodenum. The upper GI endoscopy was accomplished without difficulty. The patient tolerated the procedure well. Moderate Sedation: General anesthesia MAC anesthesia was administered by the anesthesia team. Total Procedure Duration: 0 hours 4 minutes 43 seconds Findings: LA Grade D (one or more mucosal breaks involving at least 75% of esophageal circumference) esophagitis with easy brusing upon touch with scope was found. Patchy moderate inflammation characterized by erosions was found in the gastric antrum. Biopsies were taken with a cold forceps for Helicobacter pylori testing. The examined duodenum was normal. Impression: - LA Grade D esophagitis. - Gastritis. Biopsied. - Normal examined duodenum. Recommendation: - Await pathology results. - Repeat upper endoscopy in 2 months for surveillance. - Use Protonix (pantoprazole) 40 mg PO BID for 2 months. Procedure Code(s): --- Professional --- 55725, Esophagogastroduodenos copy, flexible, transoral; with biopsy, single or multiple Diagnosis Code(s): --- Professional --- K20.9, Esophagitis, unspecified K29.70, Gastritis, unspecified, without bleeding K92.1, Melena (includes Hematochezia) CPT copyright 2019 [employer]. All rights reserved. The codes documented in this report are preliminary and upon netsuite developer review may be revised to meet current compliance requirements. Attending Participation: I personally performed the entire procedure. Scope In: 1:49:25 PM Scope Out: 1:54:08 PM MD Lashell aLrios Ala, MD 07/03/2022 1:59:36 PM This report has been signed electronically by Lashell Peña MD Number of Addenda: 0 Note Initiated On: 07/03/2022 1:11 PM Estimated Blood Loss: Estimated blood loss was minimal. Normal [facility] XR ERCP READ ONLYon 07-03-20 XR ERCP READ ONLY * * *Final Report* * * DATE OF EXAM: Jul 03 2022 2:46PM FVO [id number] - XR ERCP READ ONLY / PROCEDURE REASON: abd pain- intra op ercp * * * * Physician Interpretation * * * * EXAMINATION: XR ERCP READ ONLY CLINICAL HISTORY: Abdominal pain, ERCP Technique: Intraoperative fluoroscopic images Comparison: None RESULT: Contrast injected into the common bile duct. Placement of a biliary stent. Please see operative note for details. Fluoroscopic Radiation Summary: Plane A, Air Kerma: 127.0 mGy Dose Area Product (DAP): Fluoro time: 7:13 min:sec IMPRESSION: Please see operative note for details. Weekend Caregiver: PSCManas Transcribe Date/Time: Jul 03 2022 3:38P Dictated by : CYNTHIA FIELDS MD This examination was interpreted and the report reviewed and electronically signed by: CYNTHIA FIELDS MD on Jul 03 2022 3:39PM EST [id number] [facility] ANES POSTPROC EVALon 022 ANES POSTPROC EVAL HNO ID: [id number] Author: Maricel Aparicio MD Service: Anesthesiology Author Type: Anesthesiologist Type: Anesthesia Postprocedure Evaluation Filed: 07/02/2022 4:11 PM Note Text: POST ANESTHESIA EVALUATION NOTE : 1955 Procedure Summary Date: 07/02/22 Room / Location: OR03 / [facility] OR Anesthesia Start: 1421 Anesthesia Stop: 1554 Procedure: LAPAROSCOPIC CHOLECYSTECTOMY WITH GRAMS (Gallbladder) Diagnosis: Choledocholithiasis (Choledocholithiasis [K80.50]) Surgeons: Clyde Hazel MD Responsible Provider: Maricel Aparicio MD Anesthesia Type: general ASA Status: 2 Anesthesia Type: general Airway Type: ETT Last Vitals Vitals Value Taken Time BP 138/64 07/02/22 1600 Temp 37 ?C (98.6 ?F) 07/02/22 1552 Pulse 71 07/02/22 1609 Resp 13 07/02/22 1609 SpO2 100 % 07/02/22 1609 Vitals shown include unvalidated device data. Post Anesthesia Patient Status Patient Evaluation: PACU. Airway Control: returned to baseline unsupported. Cardiovascular Status: stable. Pain Management: clinically adequate Postoperative Hydration: acceptable. Recommendation: continue current plan of care. Anesthesia Observations No Documentation SIGNATURE: Maricel Aparicio MD PATIENT NAME: Pranav Kemp DATE: July 02, 2022 TIME: 4:11 PM CSN: [id number] [facility] ANES PRE-OPon 07-02-2022 ANES PRE-OP HNO ID: [id number] Author: Jairon Chapa MD Service: Anesthesiology Author Type: Anesthesiologist Type: Anesthesia Preprocedure Evaluation Filed: 07/02/2022 1:49 PM Note Text: ANESTHESIOLOGY DAY OF SURGERY NOTE : 1955 Procedure Information Date/Time: 07/02/22 1415 Procedure: LAPAROSCOPIC CHOLECYSTECTOMY (Gallbladder) Location: OR03 / OR Surgeons: Clyde Hazel MD Estimated body mass index is 30.58 kg/m? as calculated from the following: Height as of 05/22/22: 167.6 cm (5' 5.98 ). Weight as of 05/22/22: 85.9 kg (189 lb 6.4 oz). Most recent hematocrit and potassium results: Hematocrit 41.7 07/02/2022 Potassium 3.5 07/02/2022 Relevant Problems No relevant active problems I - PHYSICAL EVALUATION AIRWAY Patient intubated: No. Mallampati: II. TM distance: >3 FB. Neck ROM: full ROM without neurological symptoms. Mouth opening: adequate. Short neck: no. Thick neck: no DENTAL Dental findings: teeth intact. Additional exam findings: no II - ANESTHESIA PLAN ASA Score: 2 Anesthetic Plan: general Airway type: ETT NPO Status: adequate Monitoring plan: Standard ASA. Postoperative analgesic plan: parenteral or oral opioids and multimodal analgesia. Patient / Surrogate agrees to blood products: yes DNR status not reviewed with patient and/or family prior to surgery. Significant changes in the patient condition since the History and Physical, not otherwise documented in primary service progress note: no. Potential Anesthesia issues that may suggest increased risk of complications or contraindication to planned procedure: none. Vitals Value Taken Time BP 150/53 07/02/22 1346 Pulse 83 07/02/22 1346 Resp 18 07/02/22 1346 Temp 36.9 ?C (98.4 ?F) 07/02/22 1346 SpO2 100 % 07/02/22 1346 Facility-Administered Medications as of 07/02/2022 Medication Dose Route Frequency - [MAR Hold due to Transfer] heparin 5,000 Units injection 5,000 Units SUBCUTANEOUS q 12 H - [MAR Hold due to Transfer] NaCl 0.9% iv flush bag 20 mL INTRAVENOUS PRN - [MAR Hold due to Transfer] sodium chloride 0.9 % (flush) 3-5 mL (BD POSIFLUSH) 3-5 mL INTRAVENOUS q 12 H - [MAR Hold due to Transfer] lactated ringers iv infusion 100 mL/hr INTRAVENOUS CONTINUOUS - [MAR Hold due to Transfer] pantoprazole 40 mg injection (PROTONIX) 40 mg INTRAVENOUS DAILY (6 AM) - [MAR Hold due to Transfer] tamoxifen 20 mg tab(s) (NOLVADEX) 20 mg ORAL DAILY - [MAR Hold due to Transfer] piperacillin-tazobacta m iv piggyback 3.375 g in dextrose (iso-osmotic) 50 mL (ZOSYN) 3.375 g INTRAVENOUS q 6 H - [MAR Hold due to Transfer] acetaminophen 650 mg tab(s) (TYLENOL) 650 mg ORAL q 6 H PRN - [MAR Hold due to Transfer] oxyCODONE IR 5 mg tab(s) (ROXICODONE) 5 mg ORAL q 6 H PRN - [MAR Hold due to Transfer] ondansetron (PF) 4 mg injection (ZOFRAN) 4 mg INTRAVENOUS q 6 H PRN - [COMPLETED] piperacillin-tazobacta m iv piggyback 3.375 g in dextrose (iso-osmotic) 50 mL (ZOSYN) 3.375 g INTRAVENOUS ONCE - [MAR Hold due to Transfer] HYDROmorphone 0.2 mg injection (DILAUDID) 0.2 mg INTRAVENOUS q 8 H PRN Outpatient Medications as of 07/02/2022 Medication Sig - albuterol HFA (PROVENTIL HFA, VENTOLIN HFA) 90 mcg/actuation inhaler Inhale as instructed. - tamoxifen (NOLVADEX) 20 mg tablet Take 1 tablet (20 mg) by mouth once daily. - losartan (COZAAR) 25 mg tablet Take 25 mg by mouth once daily. - loratadine (CLARITIN ORAL) Take by mouth. I have interviewed and examined the patient. I have reviewed the medical record and/or the pre-anesthesia evaluation, pertinent labs, and test results. This contains updated information obtained within 48 hours of Surgery/Procedure. SIGNATURE: Jairon Chapa MD PATIENT NAME: Pranav Kemp DATE: July 02, 2022 TIME: 1:49 PM CSN: [id number] [facility] BRIEF OP NOTon 07-02-2022 BRIEF OP NOT HNO ID: [id number] Author: Nely Georges MD Service: General Surgery Author Type: Resident Type: Brief Op Note Filed: 07/02/2022 3:45 PM Note Text: BRIEF OPERATIVE NOTE - GENERAL SURGERY Log ID: [id number] Surgery/Procedure Date: 07/02/2022 Incision/Procedure Start Time: 2:37 PM Incision Close/Procedure End Time: 3:42 PM Surgeon(s) and Employment Law Specialist(s): Surgeon(s) and Role: * Clyde Hazel MD - Primary * Nely Georges MD - Resident - Assisting No Additional Staff Procedures and Anesthesia: Procedure(s) and Anesthesia Type: * LAPAROSCOPIC CHOLECYSTECTOMY WITH GRAMS Findings: umbilical hernia, chronic cholecystitis, filling defect in CBD noted on IOC. Estimated Blood Loss: Minimal Specimens: gallbladder Diagnosis Code(s): Pre-Op Diagnosis Codes: * Choledocholithiasis [K80.50] Postop Diagnosis: same Drains: RUQ 15Fr gael Wound Classification: Class 2, operative wound clean-contaminated, gastrointestinal/bilia ry tract entered without significant spillage Complications: None SIGNATURE: Nely Georges MD PATIENT NAME: Pranav Kemp DATE: July 02, 2022 TIME: 3:44 PM [facility] CBC panel Auto (Bld)on 07-02 Erythrocyte distribution width (RBC) [Ratio] 12.5 % Normal 11.5-15.0 [facility] Comment on above: Order Comment: Kiani mela Type: BLOOD SPECIMEN Ordering Facility: [facility] Address: [address] [place], [place] [id number] Performed By: #### 5 8410-2 #### [facility] CLIA [id number] [place] [address] [place] Hematocrit (Bld) [Volume fraction] 41.7 % Normal 36.0-46.0 [facility] Comment on above: Order Comment: Speci men Type: BLOOD SPECIMEN Ordering Facility: [facility] Address: [address] [place] [address] Performed By: #### 5 8410-2 #### [facility] CLIA [id number] [address] [place] [address] Hemoglobin (Bld) [Mass/Vol] 14.0 g/dL Normal 11.5-15.5 [facility] Comment on above: Order Comment: Speci men Type: BLOOD SPECIMEN Ordering Facility: [facility] Address: [address] [place] [address] Performed By: #### 5 8410-2 #### [facility] CLIA [id number] [address] [place] [address] [place] MCH (RBC) [Entitic mass] 32.2 pg Normal 26.0-34.0 [facility] Comment on above: Order Comment: Speci men Type: BLOOD SPECIMEN Ordering Facility: [facility] Address: [address] [place] [address] Performed By: #### 5 8410-2 #### [facility] CLIA [id number] [address] [place] [address] MCHC (RBC) [Mass/Vol] 33.6 g/dL Normal 30.5-36.0 [facility] Comment on above: Order Comment: Speci men Type: BLOOD SPECIMEN Ordering Facility: [facility] Address: [address] [place] [address] Performed By: #### 5 8410-2 #### [facility] CLIA [id number] [address] [place] [address] MCV (RBC) [Entitic vol] 95.9 fL Normal 80.0-100.0 [facility] Comment on above: Order Comment: Speci men Type: BLOOD SPECIMEN Ordering Facility: [facility] Address: [address] [place] [address] Performed By: #### 5 8410-2 #### [facility] CLIA [id number] [address] [place] [address] [place] Nucleated RBC (Bld) [#/Vol] 10*3/uL Normal <0.01 [facility] Comment on above: Order Comment: Speci men Type: BLOOD SPECIMEN Ordering Facility: [facility] Address: [address] [place] [address] Performed By: #### 5 8410-2 #### [facility] CLIA [id number] [address] [place] [address] [place] Platelet mean volume (Bld) [Entitic vol] 8.5 fL Low 9.0-12.7 [facility] Comment on above: Order Comment: Speci men Type: BLOOD SPECIMEN Ordering Facility: [facility] Address: [address] [place] [address] Performed By: #### 5 8410-2 #### [facility] CLIA [id number] [address] [place] [address] [place] Platelets (Bld) [#/Vol] 238 10*3/uL Normal 150-400 [facility] Comment on above: Order Comment: Speci men Type: BLOOD SPECIMEN Ordering Facility: [facility] Address: [address] [place] [address] Performed By: #### 5 8410-2 #### [facility] CLIA [id number] [address] [place] [address] [place] RBC (Bld) [#/Vol] 4.35 10*6/uL Normal 3.90-5.20 [facility] Comment on above: Order Comment: Speci men Type: BLOOD SPECIMEN Ordering Facility: [facility] Address: [address] [place] [address] Performed By: #### 5 8410-2 #### [facility] CLIA [id number] [address] [place] [address] [place] WBC (Bld) [#/Vol] 4.40 10*3/uL Normal 3.70-11.00 [facility] Comment on above: Order Comment: Speci men Type: BLOOD SPECIMEN Ordering Facility: [facility] Address: [address] [place] [address] Performed By: #### 5 8410-2 #### [facility] CLIA [id number] [address] [place] [address] [place] Comprehensive metabolic 2000 panelon 07-02-2022 Albumin [Mass/Vol] 4.1 g/dL Normal 3.9-4.9 [facility] Comment on above: Order Comment: Speci men Type: BLOOD SPECIMEN Ordering Facility: [facility] Address: [address] [place] [address] Performed By: #### 2 4323-8 #### [facility] CLIA [id number] [address] [place] [address] [place] ALP [Catalytic activity/Vol] 115 U/L Normal 34-123 [facility] Comment on above: Order Comment: Speci men Type: BLOOD SPECIMEN Ordering Facility: [facility] Address: [address] [place] [address] Performed By: #### 2 4323-8 #### [facility] CLIA [id number] [address] [place] [address] [place] ALT [Catalytic activity/Vol] 123 U/L High 7-38 [facility] Comment on above: Order Comment: Speci men Type: BLOOD SPECIMEN Ordering Facility: [facility] Address: [address] [place] [address] Performed By: #### 2 4323-8 #### [facility] CLIA [id number] [address] [place] [address] [place] Anion gap [Moles/Vol] 7 mmol/L Low 9-18 [facility] Comment on above: Order Comment: Speci men Type: BLOOD SPECIMEN Ordering Facility: [facility] Address: [address] [place] [address] Performed By: #### 2 4323-8 #### [facility] CLIA [id number] [address] [place] [address] [place] AST [Catalytic activity/Vol] 46 U/L High 13-35 [facility] Comment on above: Order Comment: Speci men Type: BLOOD SPECIMEN Ordering Facility: [facility] Address: [address] [address] Performed By: #### 2 4323-8 #### [facility] CLIA [id number] [address] [place] [address] [place] Bilirubin [Mass/Vol] 0.4 mg/dL Normal 0.2-1.3 [facility] Comment on above: Order Comment: Speci men Type: BLOOD SPECIMEN Ordering Facility: [facility] Address: [address] [place] [address] Performed By: #### 2 4323-8 #### [facility] CLIA [id number] [address] [place] [address] [place] Calcium [Mass/Vol] 9.0 mg/dL Normal 8.5-10.2 [facility] Comment on above: Order Comment: Speci men Type: BLOOD SPECIMEN Ordering Facility: [facility] Address: [address] [place] [address] Performed By: #### 2 4323-8 #### [facility] CLIA [id number] [address] [place] [address] [place] Chloride [Moles/Vol] 110 mmol/L High 97-105 [facility] Comment on above: Order Comment: Speci men Type: BLOOD SPECIMEN Ordering Facility: [facility] Address: [address] [place] [address] Performed By: #### 2 4323-8 #### [facility] CLIA [id number] [address] [place] [address] [place] CO2 [Moles/Vol] 27 mmol/L Normal 22-30 [facility] Comment on above: Order Comment: Speci men Type: BLOOD SPECIMEN Ordering Facility: [facility] Address: [address] [place] [address] Performed By: #### 2 4323-8 #### [facility] CLIA [id number] [address] [place] [address] [place] Creatinine [Mass/Vol] 0.80 mg/dL Normal 0.58-0.96 [facility] Comment on above: Order Comment: Speci men Type: BLOOD SPECIMEN Ordering Facility: [facility] Address: [address] [place] [address] Performed By: #### 2 4323-8 #### [facility] CLIA [id number] [address] [place] [address] [place] ESTIMATED GLOMERULAR FILTRATION RATE 80 mL/min/1.73m??? Normal >=60 [facility] Comment on above: Order Comment: Ellis mela Type: BLOOD SPECIMEN Ordering Facility: [facility] Address: [address] [place] [address] Result Comment: Yaneth mated Glomerular Filtration Rate (eGFR) is calculated using the 2020 CKD-EPI creatinine equation. This equation utilizes serum creatinine, sex, and age as parameters. The creatinine assay has traceable calibration to isotope dilution-mass spectrometry. Refer to KDIGO guidelines for clinical interpretation. In patients with unstable renal function, e.g. those with acute kidney injury, the eGFR may not accurately reflect actual GFR. Performed By: #### 2 4323-8 #### [facility] CLIA [id number] [place] [address] [place] Glucose [Mass/Vol] 102 mg/dL High 74-99 [facility] Comment on above: Order Comment: Ellis mela Type: BLOOD SPECIMEN Ordering Facility: [facility] Address: [address] [place] [address] Result Comment: The [place] [employer] (ADA) provides guidance for cutoff values for fasting glucose and random glucose. The ADA defines fasting as no caloric intake for at least 8 hours. Fasting plasma glucose results between 100 to 125 mg/dL indicate increased risk for diabetes (prediabetes). Fasting plasma glucose results greater than or equal to 126 mg/dL meet the criteria for diagnosis of diabetes. In the absence of unequivocal hyperglycemia, results should be confirmed by repeat testing. In a patient with classic symptoms of hyperglycemia or hyperglycemic crisis, random plasma glucose results greater than or equal to 200 mg/dL meet the criteria for diagnosis of diabetes. Reference: Standards of Medical Care in Diabetes 2016, [place] [employer]. Diabetes Care. 2016.39(Suppl 1). Performed By: #### 2 4323-8 #### [facility] CLIA [id number] [address] [place] [address] [place] Potassium [Moles/Vol] 3.5 mmol/L Low 3.7-5.1 [facility] Comment on above: Order Comment: Speci men Type: BLOOD SPECIMEN Ordering Facility: [facility] Address: [address] [place] [address] Performed By: #### 2 4323-8 #### [facility] CLIA [id number] [address] [place] [address] [place] Protein [Mass/Vol] 7.0 g/dL Normal 6.3-8.0 [facility] Comment on above: Order Comment: Speci men Type: BLOOD SPECIMEN Ordering Facility: [facility] Address: [address] [place] [address] Performed By: #### 2 4323-8 #### [facility] CLIA [id number] [address] [place] [address] [place] [facility] Sodium [Moles/Vol] 144 mmol/L Normal 136-144 [facility] Comment on above: Order Comment: Speci men Type: BLOOD SPECIMEN Ordering Facility: [facility] Address: [address] [place] [address] Performed By: #### 2 4323-8 #### [facility] CLIA [id number] [address] [place] [address] [place] Urea nitrogen [Mass/Vol] 5 mg/dL Low 7-21 [facility] Comment on above: Order Comment: Speci men Type: BLOOD SPECIMEN Ordering Facility: [facility] Address: [address] [place] [address] Performed By: #### 2 4323-8 #### [facility] CLIA [id number] [address] [place] [address] [place] HISTORY PHYSICALon HISTORY PHYSICAL HNO ID: [id number] Author: Perry Stevens MD Service: General Surgery Author Type: Resident Type: HANDP Filed: 07/02/2022 6:30 AM Note Text: Attestation signed by Shahzad Perez MD at 07/02/2022 4:22 PM I saw and evaluated the patient. Discussed with the resident and agree with resident's findings and plan as documented in the resident's note. Plan for cholecystectomy. May be a partner depending on timing. Shahzad Perez MD GENERAL SURGERY HISTORY AND PHYSICAL NOTE Pranav Kemp [id number] Subjective CHIEF COMPLAINT: abdominal pain HISTORY OF PRESENT ILLNESS: Ms. 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 Patient states she has had progressively worsening abdominal pain since Wednesday. She has not had this issue in the past. Describes the pain as sharp, intermittent in her RUQ that radiates to her right flank/epigastrium and is associated with meals. She endorses concomitant nausea and bloating, as well as an episode of emesis after sending a baked potato, which prompted her to be evaluated at the ED in [place]. At bedside evaluation, patient states her pain is significantly improved. She endorses minimal nausea and no vomiting. Denies any fever, chills, chest pain, shortness of breath, recent weight loss, blood in stool or urine dizziness or syncope. No prior [place] or stroke, not on AC or blood thinners. No previous colonoscopy or EGD. Of note, the patient states that all of my relatives and parents have had their gallbladders taken out . PAST MEDICAL HISTORY Diagnosis Date Asthma DCIS (ductal carcinoma in situ) 2020 Varicose veins of both lower extremities PAST SURGICAL HISTORY Procedure Laterality Date BREAST LUMPECTOMY HX Left 2020 HYSTERECTOMY HX 1989 PAST SURGICAL HISTORY OF Bilateral 06/10/2012 Laser iridotomy REPAIR ELBOW FRACTURE VEIN SURGERY (SPECIFY LOCATION) HX Dr. John Das FAMILY HISTORY Problem Relation Age of Onset Alzheimer's Disease Mother Cataract Father Glaucoma Father other (esophageal cancer) Father other (stomach cancer) Father Social History Tobacco Use Smoking status: Former Types: Cigarettes Quit date: 06/03/1986 Years since quittin.1 Smokeless tobacco: Never Substance Use Topics Alcohol use: Not Currently Comment: Socially Drug use: No albuterol HFA (PROVENTIL HFA, VENTOLIN HFA) 90 mcg/actuation inhaler, Inhale as instructed., Disp: , Rfl: , Past Week tamoxifen (NOLVADEX) 20 mg tablet, Take 1 tablet (20 mg) by mouth once daily., Disp: 30 tablet, Rfl: 0 tamoxifen (NOLVADEX) 20 mg tablet, Take 1 tablet (20 mg) by mouth once daily., Disp: 90 tablet, Rfl: 3, 06/29/2022 losartan (COZAAR) 25 mg tablet, Take 25 mg by mouth once daily., Disp: , Rfl: , 06/29/2022 loratadine (CLARITIN ORAL), Take by mouth., Disp: , Rfl: , Unknown Current Facility-Administered Medications Medication Dose Route Frequency heparin 5,000 Units injection 5,000 Units SUBCUTANEOUS q 12 H NaCl 0.9% iv flush bag 20 mL INTRAVENOUS PRN sodium chloride 0.9 % (flush) 3-5 mL (BD POSIFLUSH) 3-5 mL INTRAVENOUS q 12 H lactated ringers iv infusion 100 mL/hr INTRAVENOUS CONTINUOUS pantoprazole 40 mg injection (PROTONIX) 40 mg INTRAVENOUS DAILY (6 AM) losartan 25 mg tab(s) (COZAAR) 25 mg ORAL DAILY tamoxifen 20 mg tab(s) (NOLVADEX) 20 mg ORAL DAILY piperacillin-tazobacta m iv piggyback 3.375 g in dextrose (iso-osmotic) 50 mL (ZOSYN) 3.375 g INTRAVENOUS q 6 H acetaminophen 650 mg tab(s) (TYLENOL) 650 mg ORAL q 6 H PRN oxyCODONE IR 5 mg tab(s) (ROXICODONE) 5 mg ORAL q 6 H PRN HYDROmorphone 0.2 mg injection (DILAUDID) 0.2 mg INTRAVENOUS q 4 H PRN ondansetron (PF) 4 mg injection (ZOFRAN) 4 mg INTRAVENOUS q 6 H PRN piperacillin-tazobacta m iv piggyback 3.375 g in dextrose (iso-osmotic) 50 mL (ZOSYN) 3.375 g INTRAVENOUS ONCE ALLERGIES Allergen Reactions Acetaminophen-Codei* Rash, Hives Berries Rash Ciprofibrate Unknown Ciprofloxacin Hives Codeine Unknown Grape GI Upset Keflex [Cephalexin] Hives, Itching Kenalog-H Other: See Comments Blood clots Latex Hives Montelukast Unknown Mushroom Rash Naproxen Mental Status Change Neomycin-Bacitracin* Unknown Novacaine [Procaine] Mental Status Change Peanuts Mental Status Change Shellfish Derived Mental Status Change Strawberries Rash Sulfa (Sulfonamide * Rash, Hives Tree Nut Mental Status Change Triamcinolone Unknown COMPLETE REVIEW OF SYSTEMS: Consitutional: Denies fevers/chills, significant weight loss/gain HEENT: Denies [place], vision changes CV: Denies chest pain, palpitations, leg swelling Pulm: Denies coughing, SOB, hemoptysis GI: see HPI : Den (more content not included)... Normal [facility] NURSING PROGon 07-02-2022 NURSING PROG HNO ID: [id number] Author: Gabriella Taylor RN Service: ? Author Type: Registered Nurse Type: Nursing Progress Note Filed: 07/02/2022 5:17 PM Note Text: Nursing Progress Note: Pt AANDO x 3. Pt ambulating independently in room. Pt denies N/V, SOB, chest pain. Lungs clear on RA. Pt currently NPO, pending surgery. Abdomen is soft and tender. Obtained a verbal order from Lynnette Teixeira PA-C, to hold PO chemo medication until after surgery. 1700: Pt returned to unit in stable condition post surgery. [facility] NURSING PROG HNO ID: [id number] Author: Sarah Ruiz RN Service: Nursing Author Type: Registered Nurse Type: Nursing Progress Note Filed: 07/02/2022 4:46 AM Note Text: Transfer Note: Patient transferred into room/unit 315 in stable condition. Actions taken: No futher actions taken at this time. Will continue to monitor and check with patient. Patient belongings with patient. Normal [facility] OPERATIVE NOon 07-02-2022 OPERATIVE NO HNO ID: [id number] Author: Clyde Hazel MD Service: General Surgery Author Type: Physician Type: Operative Report Filed: 07/03/2022 9:17 AM Note Text: [facility] - Operative Report PRANAV KEMP : 1955 AGE: 66. SEX: F PATIENT TYPE: V HOSP SVC: GENS LOCATION: [facility] ATTENDING PHYSICIAN: Bisi Farias M.D. CSN NUMBER: [id number] DATE OF SURGERY/PROCEDURE: 07/02/2022 INCISION/PROCEDURE START TIME: 2:37 PM INCISION CLOSE/PROCEDURE END TIME: 3:42 PM PREOPERATIVE DIAGNOSIS: Acute cholecystitis with choledocholithiasis. POSTOPERATIVE DIAGNOSIS: Acute cholecystitis with choledocholithiasis. SURGEON: Clyde Hazel M.D. MONITORING ANALYST: Resident surgeon, Dr. Topher Georges. SURGERY/PROCEDURE: Laparoscopic cholecystectomy with intraoperative cholangiogram. ANESTHESIA: General endotracheal anesthesia. COMPLICATIONS: None. ESTIMATED BLOOD LOSS: 10 mL. SPECIMENS: Gallbladder. INDICATIONS FOR PROCEDURE: Patient presented with right upper quadrant abdominal pain. Initially, she had a gallbladder filled with stones and elevated bilirubin to 1.8, which came down to 0.4 this morning. OPERATIVE FINDINGS: The patient was found to have 1 single huge stone occupying the entirety of the gallbladder. An intraoperative cholangiogram was shot that did show the right and left hepatic ducts. The common hepatic duct joining the common bile duct. There was flow of contrast into the duodenum. There appeared to be a filling defect in the distal CBD. DESCRIPTION OF PROCEDURE: The patient was correctly identified in the preoperative holding area. Consent was verified. She was brought to the operating room, where general endotracheal anesthesia was induced. She was prepped and draped in a sterile fashion. A time-out was called prior to incision. She received antibiotics and subcu heparin as per her schedule. We began by making a curvilinear umbilical incision. We carefully dissected down and identified a small hernia. We freed the hernia sac from all surrounding structures and then used the hernia to enter the abdomen. We placed a 0 Vicryl on a UR6 on either side of the fascia and placed a Diego port into the abdomen. We insufflated to 15 mmHg pressure. We placed a 10/30 scope into the abdomen. There was no evidence of any injury upon our entry. We turned our attention to the right upper quadrant. We made 2 stab incisions with a 15 blade, and placed two 5 mm ports into the abdomen under direct visualization. We turned our attention to the subxiphoid port. We made a stab incision with a 15 blade, and placed a 5 mm port into the abdomen under direct visualization. We then retracted the gallbladder cephalad and laterally, was quite difficult to grasp, but it was filled with 1 large stone. We carefully dissected the triangle of Calot until we had a complete critical view with nothing, but the cystic artery and cystic duct going to the gallbladder and the cystic plate was clean. We placed a clip high on the cystic duct and performed a ductotomy. We placed a cholangiocatheter through our ductotomy and shot a cholangiogram with the findings described above. We then placed 2 clips distal to our ductotomy. After removing the cholangiocatheter as well as a PDS Endoloop around the cystic duct. We transected the cystic duct. We did place a clip on the cystic artery and transected that as well. We carefully took the gallbladder off the gallbladder fossa. We ensured we had good hemostasis on the liver. We placed the gallbladder in an EndoCatch bag and removed it from the abdomen. We did have to markedly enlarge the umbilical fascia in order to get the gallbladder out. We copiously irrigated the abdomen until the effluent came back completely clear. We ensured we had good hemostasis on the liver. We left a 15- Mohawk Gael drain through the lateral most port in the right upper quadrant, which we sutured in place using a 2-0 nylon. We then removed all our ports under direct visualization. We closed the umbilical port fascia with a #1 PDS in a running fashion. We closed all of our skin incisions with 4-0 Monocryl running subcuticular stitches followed by SureClose. TEACHING SURGEON ATTESTATION: I was scrubbed and present for the entirety of the procedure. Clyde Hazel M.D. CK:[id number] [facility] PT panel Coag (PPP)on 2021 INR Coag (PPP) [Relative time] 0.9 {INR} Normal 0.9-1.3 [facility] Comment on above: Order Comment: [address] Type: BLOOD SPECIMEN Ordering Facility: [facility] Address: [address] [place] [address] Result Comment: Kathleen min K Antagonist (VKA) Therapeutic Range: INR 2 to 3 (Target INR of 2.5) Note: For patients treated with VKA drugs, such as warfarin, the [place] [employer] 2012 Guideline recommends a therapeutic INR range of 2 to 3 (target INR of 2.5). This recommendation includes high-risk patients with antiphospholipid syndrome with previous arterial or venous thromboembolism, current-generation mechanical or bioprosthetic aortic heart valve replacement. Note: Patients with mechanical aortic valve replacement and additional risk factors for thromboembolic events (atrial fibrillation, previous thromboembolism, LV dysfunction, hypercoagulable conditions) or an older generation mechanical AVR (i.e., ball in-Cage) or any mechanical MVR should have a INR therapeutic range of 2.5 to 3.5 (target INR of 3). Feli GH, et al. Chest 2012, 141:7S-47S Jason RA, et al. JAC 2017, 70: 252-289 Performed By: #### 3 4528-0, 53506-9 #### [facility] CLIA [id number] [place] [address] [place] PT Coag (PPP) [Time] 10.0 s Normal 9.7-13.0 [facility] Comment on above: Order Comment: [address] Type: BLOOD SPECIMEN Ordering Facility: [facility] Address: [address] [id number] Performed By: #### 3 4528-0, 52603-8 #### [facility] CLIA [id number] [place] [address] [place] SARS-CoV-2 RNA Resp Ql MARY+p robeon 07-02-2022 SARS-CoV-2 (COVID-19) RNA MARY+probe Ql (Resp) SARS-CoV-2 (Agent of COVID-19) Not Detected by RT-PCR or equivalent method. Normal Not Detected [facility] Comment on above: Order Comment: Speci men Type: SWAB OF INTERNAL NOSEOrdering Facility: [facility] Address: [address] [place] [address] Result Comment: This test has been authorized by FDA under an Emergency Use Authorization (EUA). Performed By: #### 9 4500-6 ####[facility] [id number] [address] SURGICAL PATHOLOGYon 022 CASE REPORT Normal [facility] Comment on above: Order Comment: Speci men Type: BLOOD SPECIMEN Ordering Facility: [facility] Address: [address] [place] [address] Result Comment: Surg ical Pathology Report Case: [id number] Authorizing Provider: Clyde Hazel MD Collected: 07/02/2022 03:20 PM Ordering Location: [facility] Received: 07/03/2022 07:20 AM Operating Room Pathologist: Trinidad Smyth MD Specimen: GALLBLADDER, gallbladder Performed By: #### 2 4323-8 #### [facility] CLIA [id number] CLINICAL HISTORY Normal [facility] Comment on above: Order Comment: Speci men Type: BLOOD SPECIMEN Ordering Facility: [facility] Address: [address] [place] [address] Result Comment: Pre- op diagnosis: Choledocholithiasis [K80.50] Performed By: #### 2 4323-8 #### [facility] CLIA [id number] FINAL DIAGNOSIS Normal [facility] Comment on above: Order Comment: Speci men Type: BLOOD SPECIMEN Ordering Facility: [facility] Address: [address] [place] [address] Result Comment: A. G allbladder, cholecystectomy: -Chronic cholecystitis. -Cholelithiasis. AEB/ RTM/07/06/2022 Performed By: #### 2 4323-8 #### [facility] CLIA [id number] [address] [place] [address] [place] FINAL PERFORMING LAB Normal [facility] Comment on above: Order Comment: Speci men Type: BLOOD SPECIMEN Ordering Facility: [facility] Address: [address] [place] [address] Result Comment: Diag nostic interpretation performed at [facility], [address] [place] [address] CLIA# [id number] [employer] Runner: Elvin Felipe M.D. Performed By: #### 2 4323-8 #### [facility] CLIA [id number] [address] [place] [address] GROSS DESCRIPTION A. GALLBLADDER Normal [facility] Comment on above: Order Comment: Speci men Type: BLOOD SPECIMEN Ordering Facility: [facility] Address: [address] [place] [address] Result Comment: Rece ived in formalin designated gallbladder is a gallbladder which measures 6.3 x 3 x 1.8 cm. The serosal aspect is will and smooth. The lumen contains bile and red grumous hemorrhagic material. Multiple friable black-green firm calculi which measure up to 0.8 cm in greatest dimension. A calculus is not impacting the cystic duct. The cystic duct is patent and dilated. The mucosal surface smooth will and bile-stained. The wall the gallbladder averages 0.1 cm in thickness. The cystic duct shave margin and housing management representative sections of the fundus and body are submitted in 1 cassette. BF July 03, 2022 8:57 AM Gross examination performed at [facility], [address] [place] [address] CLIA # [id number] Performed By: #### 2 4323-8 #### [facility] CLIA [id number] [address] [place] [address] TYPE + SCREENon 07-02-2022 ABO B Normal [facility] Comment on above: Order Comment: Speci men Type: BLOOD SPECIMENOrdering Facility: [facility] Address: [address] [place] [address] Performed By: #### T SCR ####[facility] [id number] [address] [id number] [facility] HISTORICAL AB SCR STATUS Negative Normal [facility] Comment on above: Order Comment: Speci men Type: BLOOD SPECIMENOrdering Facility: [facility] Address: [address] [place] [address] Performed By: #### T SCR ####[facility] [id number] [address] [id number] [facility] Rh Nom (Bld) Negative Normal [facility] Comment on above: Order Comment: Speci men Type: BLOOD SPECIMENOrdering Facility: [facility] Address: [address] [place] [address] Performed By: #### T SCR ####[facility] [id number] [address] [place] [id number] [facility] TYPE AND SCREEN EXPIRATION 07/05/2022 23:59 Normal [facility] Comment on above: Order Comment: Speci men Type: BLOOD SPECIMENOrdering Facility: [facility] Address: [address] [place] [address] Performed By: #### T SCR ####[facility] [id number] [address] XR CHOLANGIOGRAM INTRAOPon 0 07-02-2022 XR CHOLANGIOGRAM INTRAOP * * *Final Repo rt* * * DATE OF EXAM: Jul 02 2022 3:30PM FVO [id number] - XR CHOLANGIOGRAM INTRAOP / PROCEDURE REASON: ABDOMINAL PAIN/INTRA OP CHOLECYSTECTOMY * * * * Physician Interpretation * * * * TECHNIQUE: C-arm fluoroscopy for an ERCP HISTORY: Pain, Intra-Op, cholecystectomy, cholecystitis/choledoc holithiasis COMPARISON STUDY: None available. RESULT: C-arm fluoroscopy was provided to the referring physician in the OR at the time of fall cholecystectomy. Submitted for interpretation are spot images demonstrating opacification of the biliary tree emptying into the duodenum. There is a filling defect in the distal common bile duct suspicious for a calculus. This examination was obtained for surgical planning. Please refer to the intraoperative notes. Fluoroscopic Radiation Summary: Plane A, Air Kerma: 8.1 mGy Plane B, Air Kerma: 0.0 mGy Dose Area Product (DAP): Fluoro time: 0:02 min:sec IMPRESSION: 1. Filling defect distal common bile duct suspicious for choledocholithiasis. Weekend Caregiver: DANIELE Transcribe Date/Time: Jul 02 2022 3:31P Dictated by : REINALDO BAI MD This examination was interpreted and the report reviewed and electronically signed by: REINALDO BAI MD on Jul 02 2022 3:33PM EST [id number] Normal [facility] aPTT PPPon 07-02-2022 aPTT Coag (PPP) [Time] 26.2 s Normal 23.0-32.4 [facility] Comment on above: Order Comment: Speci men Type: BLOOD SPECIMEN Ordering Facility: [facility] Address: [address] [place] [address] Performed By: #### 3 4528-0, 87633-9 #### [facility] CLIA [id number] [address] [place] [address] [place] No Panel InformationOrdered By: Chica Duenas on 07-01-2022 SARS Antigen (LFIA) [facility] Automated erythrocytes count in urine sediment (number/area)Ordered By: Chica Duenas on 06-30-2022 RBC Auto (Urine sed) [#/Area] 5-9 [HPF] 0-4 [facility] Automated leukocytes count i n urine sediment (number/area)Ordered By: Chica Duenas on 06-30-2022 WBC Auto (Urine sed) [#/Area] 1-2 [HPF] 0-4 [facility] Basophils Auto (Bld) [#/Vol] Ordered By: PROVIDER TEMP on 06-30-2022 Basophils (Bld) [#/Vol] 0.1 10*3/uL 0.0-0.2 [facility] Basophils/100 WBC Auto (Bld) Ordered By: PROVIDER TEMP on 06-30-2022 Basophils/100 WBC (Bld) 1.3 % . F [facility] Bilirubin Test strip Ql (U)O rdered By: Chica Duenas on 06-30-2022 Bilirubin Ql (U) Negative Negative [facility] Blood hemoglobin measurement (mass/volume)Ordered By: PROVIDER TEMP on 06-30-2022 Hemoglobin (Bld) [Mass/Vol] 13.5 g/dL 11.8-15.4 [facility] Blood leukocytes automated c ount (number/volume)Ordered By: PROVIDER TEMP on 06-30-2022 WBC (Bld) [#/Vol] 6.5 10*3/uL 4.5-11.0 [facility] Body fluid albumin measureme nt (mass/volume)Ordered By: Chica Duenas on 06-30-2022 Albumin (Body fld) [Mass/Vol] 3.7 g/dL 3.2-5.5 [facility] COVID-19 SOFIAOrdered By: Kierra Duenas on 06-30-2022 SARS-CoV+SARS-CoV-2 (COVID-19) Ag IA.rapid Ql (Resp) Negative Negative [facility] Comment on above: This is a duplicate Jes[place] SARS Antigen (CHAD) result to be used for statistical tracking purpose only. Color Auto (U)Ordered By: Kierra Duenas on 06-30-2022 Color (U) Yellow Yellow [facility] Creatinine and Glomerular fi ltration rate.predicted panel (S/P/Bld)Ordered By: Chica Duenas on 06-30-2022 Creatinine [Mass/Vol] 0.87 mg/dL 0.44-1.03 [facility] Direct bilirubin measurement Ordered By: Chica Duenas on 06-30-2022 Bilirubin.direct [Mass/Vol] 1.0 mg/dL 0.0-0.4 [facility] Eosinophils Auto (Bld) [#/Vo l]Ordered By: PROVIDER TEMP on 06-30-2022 Eosinophils (Bld) [#/Vol] 0.0 10*3/uL 0.0-0.45 [facility] Eosinophils/100 WBC Auto (Bl d)Ordered By: PROVIDER TEMP on 06-30-2022 Eosinophils/100 WBC (Bld) 0.7 % . [facility] Erythrocyte distribution wid th Auto (RBC) [Ratio]Ordered By: PROVIDER TEMP on 06-30-2022 Erythrocyte distribution width (RBC) [Ratio] 12.9 % 11.9-15.3 [facility] Estimated glomerular filtrat ion rate (GFR) non- AmericanOrdered By: Chica Duenas on 06-30-2022 GFR/1.73 sq M.predicted among non-blacks MDRD (S/P/Bld) [Vol rate/Area] > 60 mL/Min [facility] Globulin Calc (S) [Mass/Vol] Ordered By: Chica Duenas on 06-30-2022 Globulin (S) [Mass/Vol] 3.3 g/dL F [facility] Hematocrit Auto (Bld) [Volum e fraction]Ordered By: PROVIDER TEMP on 06-30-2022 Hematocrit (Bld) [Volume fraction] 39.9 % 34.0-46.4 [facility] Ketones Auto test strip (U) [Mass/Vol]Ordered By: Chica Duenas on 06-30-2022 Ketones (U) [Mass/Vol] Negative Negative Fi [facility] Laboratory - Chemistry and C hemistry - challengeOrdered By: Chica Duenas on 06-30-2022 Lipase [Catalytic activity/Vol] 31.0 U/L 22-51 [facility] Laboratory - Hematology and Cell countsOrdered By: PROVIDER TEMP on 06-30-2022 Nucleated RBC/100 WBC (Bld) [Ratio] 0.1 % 0-0.5 [facility] Laboratory - UrinalysisOrder ed By: Chica Duenas on 06-30-2022 Hyaline casts LM Ql (Urine sed) 0-8 [LPF] 0-8 [facility] Lymphocytes Auto (Bld) [#/Vo l]Ordered By: PROVIDER TEMP on 06-30-2022 Lymphocytes (Bld) [#/Vol] 1.0 10*3/uL 1.00-4.8 [facility] Lymphocytes/100 WBC Auto (Bl d)Ordered By: PROVIDER TEMP on 06-30-2022 Lymphocytes/100 WBC (Bld) 15.5 % . [facility] MCH Auto (RBC) [Entitic mass ]Ordered By: PROVIDER TEMP on 06-30-2022 MCH (RBC) [Entitic mass] 31.9 pg 24.7-34.3 [facility] MCHC Auto (RBC) [Mass/Vol]Or dered By: PROVIDER TEMP on 06-30-2022 MCHC (RBC) [Mass/Vol] 33.8 g/dL 32.0-35.0 [facility] MCV Auto (RBC) [Entitic vol] Ordered By: PROVIDER TEMP on 06-30-2022 MCV (RBC) [Entitic vol] 94.3 fL 80-100 F [facility] Monocytes Auto (Bld) [#/Vol] Ordered By: PROVIDER TEMP on 06-30-2022 Monocytes (Bld) [#/Vol] 0.3 10*3/uL 0.0-0.8 [facility] Monocytes/100 WBC Auto (Bld) Ordered By: PROVIDER TEMP on 06-30-2022 Monocytes/100 WBC (Bld) 4.9 % . F [facility] Neutrophils Auto (Bld) [#/Vo l]Ordered By: PROVIDER TEMP on 06-30-2022 Neutrophils (Bld) [#/Vol] 5.1 10*3/uL 1.8-7.7 [facility] Neutrophils/100 WBC Auto (Bl d)Ordered By: PROVIDER TEMP on 06-30-2022 Neutrophils/100 WBC (Bld) 77.6 % . [facility] Nitrite Test strip Ql (U)Ord ered By: Chica Duenas on 06-30-2022 Nitrite Ql (U) Negative Negative [facility] No Panel InformationOrdered By: Chica Duenas on 06-30-2022 Estimated GFR () > 60 mL/Min [facility] Comment on above: GFR estimated refere nce range: According to KDOQI guidelines, <60 ml/min/1.73m2 is sufficient to diagnose a patient with chronic kidney disease. Pharmacy Creatinine Clearance (Chem 67.90 [facility] Platelet mean volume Auto (B ld) [Entitic vol]Ordered By: PROVIDER TEMP on 06-30-2022 Platelet mean volume (Bld) [Entitic vol] 6.8 fL 6.3-10.7 [facility] Platelets Auto (Bld) [#/Vol] Ordered By: PROVIDER TEMP on 06-30-2022 Platelets (Bld) [#/Vol] 333 10*3/uL 150-450 [facility] Protein Auto test strip (U) [Mass/Vol]Ordered By: Chica Duenas on 06-30-2022 Protein (U) [Mass/Vol] Negative Negative [facility] Protein [Mass/volume] in Ser um or PlasmaOrdered By: Chica Duenas on 06-30-2022 Protein [Mass/Vol] 7.0 g/dL 6.1-7.9 [facility] RBC Auto (Bld) [#/Vol]Ordere d By: WANG OLIVA on 06-30-2022 RBC (Bld) [#/Vol] 4.23 10*6/uL 3.60-5.00 [facility] Serum or plasma alanine pizarro otransferase measurement without P-5'-P (enzymatic activiOrdered By: Chica Duenas on 06-30-2022 ALT No additional P-5'-P [Catalytic activity/Vol] 191 U/L 10-60 [facility] Serum or plasma albumin/glob ulin mass ratioOrdered By: Chica Duenas on 06-30-2022 Albumin/Globulin [Mass ratio] 1.1 {ratio} [facility] Serum or plasma alkaline yue sphatase measurement (enzymatic activity/volume)Ordered By: Chica Duenas on 06-30-2022 ALP [Catalytic activity/Vol] 125 U/L 32-92 [facility] Serum or plasma anion gap de terminationOrdered By: Chica Duenas on 06-30-2022 Anion gap [Moles/Vol] 13.4 mmol/L 6.0-15.0 [facility] Serum or plasma aspartate am inotransferase measurement (enzymatic activity/volume)Ordered By: Chica Duenas on 06-30-2022 AST [Catalytic activity/Vol] 192 U/L 10-42 [facility] Serum or plasma calcium jermaine urement (mass/volume)Ordered By: Chica Duenas on 06-30-2022 Calcium [Mass/Vol] 9.5 mg/dL 8.2-10.2 [facility] Serum or plasma chloride pily surement (moles/volume)Ordered By: Chica Duenas on 06-30-2022 Chloride [Moles/Vol] 104 mmol/L 95-114 [facility] Serum or plasma glucose jermaine urement (mass/volume)Ordered By: Chica Duenas on 06-30-2022 Glucose [Mass/Vol] 120 mg/dL 70-100 [facility] Comment on above: ADA recommended refe rence range Random Glucose Reference Range is dependent on time and content of last meal. Glucose of more than 200 mg/dL in a nonstressed, ambulatory subject supports the diagnosis of Diabetes Mellitus. Serum or plasma non-glucuron idated bilirubin measurement (mass/volume)Ordered By: Chica Duenas on 06-30-2022 Bilirubin.indirect [Mass/Vol] 0.7 mg/dL [facility] Serum or plasma potassium me asurement (moles/volume)Ordered By: Chica Duenas on 06-30-2022 Potassium [Moles/Vol] 3.7 mmol/L 3.5-5.1 [facility] Serum or plasma sodium measu rement (moles/volume)Ordered By: Chica Duenas on 06-30-2022 Sodium [Moles/Vol] 141 mmol/L 136-146 [facility] Serum or plasma total biliru bin measurement (mass/volume)Ordered By: Chica Duenas on 06-30-2022 Bilirubin [Mass/Vol] 1.7 mg/dL 0.3-1.2 [facility] Comment on above: Samples from patient s who have taken Naproxen have shown spurious elevation in Total Bilirubin levels. A metabolite of Naproxen, O-desmethylnaproxen, has been shown to interfere with the Geoik-Cristal method for measuring Total Bilirubin. Serum or plasma total carbon dioxide measurement (moles/volume)Ordered By: Chica Duenas on 06-30-2022 CO2 [Moles/Vol] 27.3 mmol/L 22.0-30.0 [facility] Serum or plasma urea nitroge n measurement (mass/volume)Ordered By: Chica Duenas on 06-30-2022 Urea nitrogen [Mass/Vol] 7 mg/dL 9-23 [facility] Specific gravity Auto test s trip (U) [Rel density]Ordered By: Chica Duenas on 06-30-2022 Specific gravity (U) [Rel density] 1.011 1.001-1.030 [facility] Squamous epithelial cells de tection in urine sediment by light microscopyOrdered By: Chica Duenas on 06-30-2022 Epithelial cells.squamous LM Ql (Urine sed) 0-1 [HPF] 0-2 [facility] Troponin I.cardiac [Mass/vol ume] in Serum or Plasma by High sensitivity methodOrdered By: Chica Duenas on 06-30-2022 Troponin I.cardiac High sensitivity method [Mass/Vol] 9 pg/mL 0-15 [facility] Urine bacteria detection by automated methodOrdered By: Chica Duenas on 06-30-2022 Bacteria Auto Ql (U) None seen None Seen [facility] Urine clarity by refractomet ry automatedOrdered By: Chica Duenas on 06-30-2022 Clarity Refractometry automated (U) Clear Clear [facility] Urine glucose measurement by automated test strip (mass/volume)Ordered By: Chica Duenas on 06-30-2022 Glucose Auto test strip (U) [Mass/Vol] Normal mg/dL Normal [facility] Urine hemoglobin detection b y automated test stripOrdered By: Chica Duenas on 06-30-2022 Hemoglobin Auto test strip Ql (U) Negative Negative [facility] Urine leukocyte esterase det ection by automated test stripOrdered By: Chica Duenas on 06-30-2022 Leukocyte esterase Auto test strip Ql (U) 1+ Negative [facility] Urobilinogen Auto test strip (U) [Mass/Vol]Ordered By: Chica Duenas on 06-30-2022 Urobilinogen (U) [Mass/Vol] Normal mg/dL Normal [facility] pH Auto test strip (U)Ordere d By: Chica Duenas on 06-30-2022 pH (U) 6.5 [pH] 5.0-9.0 [facility] Albumin [Mass/volume] in Ser um or PlasmaOrdered By: [facility] on 01-31-2022 Albumin [Mass/Vol] 3.4 g/dL 3.2-5.5 [facility] Blood hemoglobin measurement (mass/volume)Ordered By: [facility] on 01-31-2022 Hemoglobin (Bld) [Mass/Vol] 13.2 g/dL 11.8-15.4 [facility] Cholesterol [Mass/volume] in Serum or PlasmaOrdered By: [facility] on 01-31-2022 Cholesterol [Mass/Vol] 162 mg/dL 140-200 [facility] Comment on above: Chol less than 200 m g/dl low riskChol 201-239 mg/dl borderline riskChol 240 mg/dl and greater high risk Cholesterol in LDL Calc [Mas s/Vol]Ordered By: [facility] on 01-31-2022 Cholesterol in LDL [Mass/Vol] 103 mg/dL 0-100 [facility] Comment on above: LDL ATP III CLASSIFI CATIONLDL less than 100 mg/dL OptimalLDL 100-129 mg/dL Near or above optimalLDL 130-159 mg/dL Borderline highLDL 160-189 mg/dL HighLDL greater than 189 mg/dL Very high Cholesterol in VLDL Calc [Ma ss/Vol]Ordered By: [facility] on 01-31-2022 Cholesterol in VLDL [Mass/Vol] 22 mg/dL [facility] Creatinine and Glomerular fi ltration rate.predicted panel (S/P/Bld)Ordered By: [facility] on 01-31-2022 Creatinine [Mass/Vol] 0.87 mg/dL 0.44-1.03 [facility] Erythrocyte distribution wid th Auto (RBC) [Ratio]Ordered By: [facility] on 01-31-2022 Erythrocyte distribution width (RBC) [Ratio] 12.4 % 11.9-15.3 [facility] Estimated glomerular filtrat ion rate (GFR) non- AmericanOrdered By: [facility] on 01-31-2022 GFR/1.73 sq M.predicted among non-blacks MDRD (S/P/Bld) [Vol rate/Area] > 60 mL/Min [facility] Hematocrit Auto (Bld) [Volum e fraction]Ordered By: [facility] on 01-31-2022 Hematocrit (Bld) [Volume fraction] 39.1 % 34.0-46.4 [facility] MCH Auto (RBC) [Entitic mass ]Ordered By: [facility] on 01-31-2022 MCH (RBC) [Entitic mass] 32.2 pg 24.7-34.3 [facility] MCHC Auto (RBC) [Mass/Vol]Or dered By: [facility] on 01-31-2022 MCHC (RBC) [Mass/Vol] 33.9 g/dL 32.0-35.0 [facility] MCV Auto (RBC) [Entitic vol] Ordered By: [facility] on 01-31-2022 MCV (RBC) [Entitic vol] 95.0 fL 80-100 [facility] No Panel InformationOrdered By: [facility] on 01-31-2022 Estimated GFR () > 60 mL/Min [facility] Comment on above: GFR estimated refere nce range: According to KDOQI guidelines, <60 ml/min/1.73m2 is sufficient to diagnose a patient with chronic kidney disease. Pharmacy Creatinine Clearance (Chem N/A [facility] Triglycerides Reflex 110 mg/dL 35-149 [facility] Comment on above: TRIG ATP III CLASSIF ICATIONTRIG less than 150 mg/dL NormalTRIG 150-199 mg/dL Borderline highTRIG 200-500 mg/dL High TRIG greater than 500 mg/dL Very highStandard traceable to the Center for Disease Conrtrol and Prevention (CDC) test method. Platelet mean volume Auto (B ld) [Entitic vol]Ordered By: [facility] on 01-31-2022 Platelet mean volume (Bld) [Entitic vol] 6.8 fL 6.3-10.7 [facility] Platelets Auto (Bld) [#/Vol] Ordered By: [facility] on 01-31-2022 Platelets (Bld) [#/Vol] 303 10*3/uL 150-450 [facility] Protein [Mass/volume] in Ser um or PlasmaOrdered By: [facility] on 01-31-2022 Protein [Mass/Vol] 6.1 g/dL 6.1-7.9 [facility] RBC Auto (Bld) [#/Vol]Ordere d By: [facility] on 01-31-2022 RBC (Bld) [#/Vol] 4.12 10*6/uL 3.60-5.00 [facility] Serum or plasma alanine pizarro otransferase measurement without P-5'-P (enzymatic activiOrdered By: [facility] on 01-31-2022 ALT No additional P-5'-P [Catalytic activity/Vol] 15 U/L 10-60 [facility] Serum or plasma alkaline yue sphatase measurement (enzymatic activity/volume)Ordered By: [facility] on 01-31-2022 ALP [Catalytic activity/Vol] 34 U/L 32-92 [facility] Serum or plasma aspartate am inotransferase measurement (enzymatic activity/volume)Ordered By: [facility] on 01-31-2022 AST [Catalytic activity/Vol] 13 U/L 10-42 [facility] Serum or plasma calcium jermaine urement (mass/volume)Ordered By: [facility] on 01-31-2022 Calcium [Mass/Vol] 9.0 mg/dL 8.2-10.2 [facility] Serum or plasma chloride pily surement (moles/volume)Ordered By: [facility] on 01-31-2022 Chloride [Moles/Vol] 105 mmol/L 95-114 [facility] Serum or plasma glucose jermaine urement (mass/volume)Ordered By: [facility] on 01-31-2022 Glucose [Mass/Vol] 86 mg/dL 70-100 [facility] Comment on above: ADA recommended refe rence rangeRandom Glucose Reference Range is dependent on time and content of last meal. Glucose of more than 200 mg/dL in a nonstressed, ambulatory subject supports the diagnosis of Diabetes Mellitus. Serum or plasma high density lipoprotein (HDL) cholesterol measurementOrdered By: [facility] on 01-31-2022 Cholesterol in HDL [Mass/Vol] 37 mg/dL 35-85 [facility] Comment on above: HDL CHOL ATP-III CLA SSIFICATION Cardiovascular RiskHDL > or equal to 60 mg/dL LOWHDL < 40 mg/dL HIGH Serum or plasma potassium me asurement (moles/volume)Ordered By: [facility] on 01-31-2022 Potassium [Moles/Vol] 4.5 mmol/L 3.5-5.1 [facility] Serum or plasma sodium measu rement (moles/volume)Ordered By: [facility] on 01-31-2022 Sodium [Moles/Vol] 139 mmol/L 136-146 [facility] Serum or plasma total biliru bin measurement (mass/volume)Ordered By: [facility] on 01-31-2022 Bilirubin [Mass/Vol] 0.4 mg/dL 0.3-1.2 [facility] Serum or plasma total carbon dioxide measurement (moles/volume)Ordered By: [facility] on 01-31-2022 CO2 [Moles/Vol] 26.8 mmol/L 22.0-30.0 [facility] Serum or plasma total choles terol/high density lipoprotein (HDL) cholesterol mass ratOrdered By: [facility] on 01-31-2022 Cholesterol.total/Choles terol in HDL [Mass ratio] 4.4 {ratio} [facility] Serum or plasma urea nitroge n measurement (mass/volume)Ordered By: [facility] on 01-31-2022 Urea nitrogen [Mass/Vol] 8 mg/dL 9- [facility] WBC Auto (Bld) [#/Vol]Ordere d By: [facility] on 01-31-2022 WBC (Bld) [#/Vol] 5.8 10*3/uL 3.8-11.6 [facility] CULTURE URINEon 01-05-2022 CULTURE URINE Culture Observations : LIGHT GROWTH OF MIXED GENITAL ELMER. NO POTENTIAL PATHOGENS SEEN. Normal [facility] Comment on above: Performed By: #### U RCX #### [facility] [address] [place] [address] Dr. Ngoc Quinonez UA RANDOM W/MICROSCOPICon BACTERIA NONE SEEN Normal NONE SEEN [facility] Comment on above: Performed By: #### U AMIC #### [facility] [address] [place] [address] Dr. Ngoc Quinonez Bilirubin Ql (U) Negative Normal NEGATIVE [facility] Comment on above: Performed By: #### U AMIC #### [facility] [address] [place] [address] Dr. Ngoc Quinonez CAST NONE SEEN Normal NONE SEEN [facility] Comment on above: Performed By: #### U AMIC #### [facility] [address] [place] [address] Dr. Ngoc Quinonez Clarity (U) CLEAR Normal CLEAR [facility] Comment on above: Performed By: #### U AMIC #### [facility] [address] [place] [address] Dr. Ngoc Quinonez Color (U) LT. YELLOW Normal YELLOW [facility] Comment on above: Performed By: #### U AMIC #### [facility] [address] [address] [address] Ngoc Quinonez Crystals LM Nom (Urine sed) NONE SEEN Normal NONE SEEN [facility] Comment on above: Performed By: #### U AMIC #### [facility] [address] [address] [address] Ngoc Quinonez Epithelial cells LM Ql (Urine sed) FEW Abnormal NONE SEEN /RARE [facility] Comment on above: Performed By: #### U AMIC #### [facility] [address] [address] [address] Ngoc Quinonez Glucose Ql (U) Negative Normal NEGATIVE [facility] Comment on above: Performed By: #### U AMIC #### [facility] [address] [place] [address] Dr. Ngoc Quinonez Hemoglobin Ql (U) Negative Normal NEGATIVE [facility] Comment on above: Performed By: #### U AMIC #### [facility] [address] [address] [address] Ngoc Quinonez Ketones Ql (U) Negative Normal NEGATIVE [facility] Comment on above: Performed By: #### U AMIC #### [facility] [address] [address] [address] Ngoc Quinonez LEUKOCYTES Negative Normal NEGATIVE [facility] Comment on above: Performed By: #### U AMIC #### [facility] [address] [address] [address] Ngoc Quinonez MUCOUS NONE SEEN Normal NONE SEEN [facility] Comment on above: Performed By: #### U AMIC #### [facility] [address] [address] [address] Ngoc Quinonez Nitrite Ql (U) Negative Normal NEGATIVE [facility] Comment on above: Performed By: #### U AMIC #### [facility] [address] [place] [address] Dr. Ngoc Quinonez pH (U) 6.5 [pH] Normal 5-9 [facility] Comment on above: Performed By: #### U AMIC #### [facility] [address] [place] [address] Dr. Ngoc Quinonez RBC NONE SEEN Abnormal 0-2 [facility] Comment on above: Performed By: #### U AMIC #### [facility] [address] [place] [address] Dr. Ngoc Quinonez SPEC GRAVITY <=1.005 Abnormal 1.005-<=1.02 5 [facility] Comment on above: Performed By: #### U AMIC #### [facility] [address] [place] [address] Dr. Ngoc Quinonez UA PROTEIN Negative Normal NEGATIVE/ TRACE [facility] Comment on above: Performed By: #### U AMIC #### [facility] [address] [place] [address] Dr. Ngoc Quinonez Urobilinogen Qn (U) 0.2 {Markie'U}/dL Normal 0.2 - 1. 0 [facility] Comment on above: Performed By: #### U AMIC #### [facility] [address] [place] [address] Dr. Ngoc Quinonez WBC NONE SEEN Normal NONE SEEN [facility] Comment on above: Performed By: #### U AMIC #### [facility] [address] [place] [address] Dr. Ngoc Quinonez XR KUB 1 VIEWon 01-05-2022 XR KUB 1 VIEW EXAMINATION: XR KUB 1 VIEW HISTORY: Abdominal pain COMPARISON: No relevant comparison available. FINDINGS: KIDNEY/URETER - RIGHT: No visible renal or ureteral calcifications. KIDNEY/URETER - LEFT: No visible renal or ureteral calcifications. PELVIS: No visible ureteral calcifications. Any visible calcifications favor phleboliths. BOWEL: No abnormal dilation or deviation. BONES: No acute abnormality. Degenerative changes OTHER: Negative. No abnormal gaseous collections. IMPRESSION: No definite urinary tract calculi Electronically authenticated by: YO CHAMBERS Date: 2022-01-05 21:32 Normal [facility] No Panel Information [facility] Vital Signs Date Time Vital Sign Value Performing Clinician Facility 08-29-2024 11:38-0500 Body height 167.64 cm MD Yesica Mcguire Work Phone: [facility] 08-29-2024 11:38-0500 Body mass index (BMI) [Ratio] 26.8 kg/m2 MD Yesica Mcguire Work Phone: [facility] 08-29-2024 11:38-0500 Body weight 75.29 kg MD Yesica Mcguire Work Phone: [facility] 08-29-2024 11:38-0500 Diastolic blood pressure 78 mm[Hg] MD Yesica Mcguire Work Phone: [facility] 08-29-2024 11:38-0500 Heart rate 87 /min MD Yesica Mcguire Work Phone: [facility] 08-29-2024 11:38-0500 Systolic blood pressure 172 mm[Hg] MD Yesica Mcguire Work Phone: [facility] 07-28-2024 15:08-0400 Body mass index (BMI) [Ratio] 27.38 kg/m2 Andrea Miller MD Work Phone: [facility] 07-28-2024 15:08-0400 Body temperature 97.81 [degF] Andrea Miller MD Work Phone: [facility] 07-28-2024 15:08-0400 Body weight 76.9 kg Andrea Miller MD Work Phone: [facility] 07-28-2024 15:08-0400 Diastolic blood pressure 74 mm[Hg] Andrea Miller MD Work Phone: [facility] 07-28-2024 15:08-0400 Heart rate 86 /min Andrea Miller MD Work Phone: [facility] 07-28-2024 15:08-0400 Respiratory rate 18 /min Andrea Miller MD Work Phone: [facility] 07-28-2024 15:08-0400 SaO2% (BldA) [Mass fraction] 100 % Andrea Miller MD Work Phone: [facility] 07-28-2024 15:08-0400 Systolic blood pressure 170 mm[Hg] Andrea Miller MD Work Phone: [facility] 05-22-2024 15:08-0400 Body height 167.64 cm MD Yesica Mcguire Work Phone: [facility] 05-22-2024 15:08-0400 Body mass index (BMI) [Ratio] 28.4 kg/m2 MD Yesica Mcguire Work Phone: [facility] 05-22-2024 15:08-0400 Body weight 79.83 kg MD Yesica Mcguire Work Phone: [facility] 05-22-2024 15:08-0400 Diastolic blood pressure 68 mm[Hg] MD Yesica Mcguire Work Phone: [facility] 05-22-2024 15:08-0400 Heart rate 86 /min MD Yesica Mcguire Work Phone: [facility] 05-22-2024 15:08-0400 Systolic blood pressure 165 mm[Hg] MD Yesica Mcguire Work Phone: [facility] 04-10-2024 14:33-0400 Body height 167.64 cm [facility] 04-10-2024 14:33-0400 Body mass index (BMI) [Ratio] 28.5 kg/m2 [facility] 04-10-2024 14:33-0400 Body weight 80.28 kg [facility] 04-10-2024 14:33-0400 Diastolic blood pressure 73 mm[Hg] [facility] 04-10-2024 14:33-0400 Heart rate 79 /min [facility] 04-10-2024 14:33-0400 Systolic blood pressure 163 mm[Hg] [facility] 12-22-2023 10:26-0500 Body temperature 97.2 [degF] AKIN Silva MD Work Phone: [facility] 12-22-2023 10:26-0500 Body weight 79.6 kg AKIN Silva MD Work Phone: [facility] 12-22-2023 10:26-0500 Diastolic blood pressure 80 mm[Hg] AKIN Silva MD Work Phone: [facility] 12-22-2023 10:26-0500 Heart rate 79 /min AKIN Silva MD Work Phone: [facility] 12-22-2023 10:26-0500 Respiratory rate 16 /min AKIN Silva MD Work Phone: [facility] 12-22-2023 10:26-0500 SaO2% (BldA) [Mass fraction] 100 % AKIN Silva MD Work Phone: [facility] 12-22-2023 10:26-0500 Systolic blood pressure 155 mm[Hg] AKIN Silva MD Work Phone: [facility] 09-15-2023 11:30-0500 Body height 167.64 cm Yesica Mcguire Other [facility] Other 09-15-2023 11:30-0500 Body mass index (BMI) [Ratio] 28.24 kg/m2 Yesica Mcguire Other [facility] Other 09-15-2023 11:30-0500 Body weight 79.38 kg Yesica Mcguire Other [facility] Other 09-15-2023 11:30-0500 Diastolic blood pressure 78 mm[Hg] Yesica Mcguire Other [facility] Other 09-15-2023 11:30-0500 Systolic blood pressure 142 mm[Hg] Yesica Mcguire Other [facility] 06-30-2023 11:05-0400 Body height 167.6 cm Andrea Miller MD Work Phone: [facility] 06-30-2023 11:05-0400 Body temperature 97 [degF] Andrea Miller MD Work Phone: [facility] 06-30-2023 11:05-0400 Body weight 80.11 kg Andrea Miller MD Work Phone: [facility] 06-30-2023 11:05-0400 Diastolic blood pressure 50 mm[Hg] Andrea Miller MD Work Phone: [facility] 06-30-2023 11:05-0400 Heart rate 82 /min Andrea Miller MD Work Phone: [facility] 06-30-2023 11:05-0400 Respiratory rate 16 /min Andrea Miller MD Work Phone: [facility] 06-30-2023 11:05-0400 SaO2% (BldA) [Mass fraction] 98 % Andrea Miller MD Work Phone: [facility] 06-30-2023 11:05-0400 Systolic blood pressure 164 mm[Hg] Andrea Miller MD Work Phone: [facility] 12-15-2022 10:42-0500 Body height 167.6 cm Lashell Peña MD Work Phone: [facility] 12-15-2022 10:42-0500 Body temperature 97.3 [degF] Lashell Peña MD Work Phone: [facility] 12-15-2022 10:42-0500 Body weight 83.01 kg Lashell Peña MD Work Phone: [facility] 12-15-2022 10:42-0500 Diastolic blood pressure 61 mm[Hg] Lashell Peña MD Work Phone: [facility] 12-15-2022 10:42-0500 Heart rate 74 /min Lashell Peña MD Work Phone: [facility] 12-15-2022 10:42-0500 SaO2% (BldA) [Mass fraction] 100 % Lashell Peña MD Work Phone: [facility] 12-15-2022 10:42-0500 Systolic blood pressure 158 mm[Hg] Lashell Peña MD Work Phone: [facility] 07-17-2022 13:34-0400 Body height 167.6 cm Breana Loweyd [employer].ACCOUNTING GENERALIST Work Phone: [facility] 07-17-2022 13:34-0400 Body temperature 97.2 [degF] Breana Loweyd [employer] ASSEMBLER.ACCOUNTING GENERALIST Work Phone: [facility] 07-17-2022 13:34-0400 Body weight 83.92 kg Breana Loweyd [employer] ASSEMBLER.ACCOUNTING GENERALIST Work Phone: [facility] 07-17-2022 13:34-0400 Diastolic blood pressure 66 mm[Hg] Breana Loweyd [employer] ASSEMBLER.ACCOUNTING GENERALIST Work Phone: [facility] 07-17-2022 13:34-0400 Heart rate 82 /min Breana Serna [employer] ASSEMBLER.ACCOUNTING GENERALIST Work Phone: [facility] 07-17-2022 13:34-0400 Systolic blood pressure 145 mm[Hg] Breana Serna [employer] ASSEMBLER.ACCOUNTING GENERALIST Work Phone: [facility] 07-01-2022 03:00-0400 Diastolic blood pressure 64 mm[Hg] MD Yesica Mcguire Work Phone: [facility] 07-01-2022 03:00-0400 Heart rate 67 /min MD Yesica Mcguire Work Phone: [facility] 07-01-2022 03:00-0400 Respiratory rate 20 /min MD Yesica Mcguire Work Phone: [facility] 07-01-2022 03:00-0400 SaO2% (BldA) [Mass fraction] 98 % MD Yesica Mcguire Work Phone: [facility] 07-01-2022 03:00-0400 Systolic blood pressure 143 mm[Hg] MD Yesica Mcguire Work Phone: [facility] 07-01-2022 01:00-0400 Body temperature 98 [degF] MD Yesica Mcguire Work Phone: [facility] 06-30-2022 18:18-0400 Body height 167.64 cm MD Yesica Mcguire Work Phone: [facility] 06-30-2022 18:18-0400 Body weight 84.8 kg MD Yesica Mcguire Work Phone: [facility] 05-22-2022 13:54-0400 Body height 167.6 cm Andrea Miller MD Work Phone: [facility] 05-22-2022 13:54-0400 Body temperature 97.39 [degF] Andrea Miller MD Work Phone: [facility] 05-22-2022 13:54-0400 Body weight 85.91 kg Andrea Miller MD Work Phone: [facility] 05-22-2022 13:54-0400 Diastolic blood pressure 52 mm[Hg] Andrea Miller MD Work Phone: [facility] 05-22-2022 13:54-0400 Heart rate 81 /min Andrea Miller MD Work Phone: [facility] 05-22-2022 13:54-0400 Respiratory rate 16 /min Andrea Miller MD Work Phone: [facility] 05-22-2022 13:54-0400 SaO2% (BldA) [Mass fraction] 99 % Andrea Miller MD Work Phone: [facility] 05-22-2022 13:54-0400 Systolic blood pressure 165 mm[Hg] Andrea Miller MD Work Phone: [facility] Encounters Encounter Date Encounter Type Care Provider Facility Start: 08-29-2024 End: 08-29-2024 ambulatory MD Yesica Mcguire Work Phone: [facility] Work Phone: Start: 08-29-2024 End: 08-29-2024 Patient encounter procedure MD Yesica Mcguire Work Phone: [facility] Work Phone: Start: 08-23-2024 Non-patient / Non-visit MD Mandi Mcguire Work Phone: [facility] Work Phone: Start: 08-22-2024 End: 08-22-2024 Patient encounter procedure MD Yesica Mcguire Work Phone: [facility] Work Phone: Start: 08-22-2024 End: 08-22-2024 ambulatory [facility]ica [facility] Work Phone: Start: 08-22-2024 End: 08-22-2024 Departed Referred MD [facility] [place] Work Phone: Start: 08-22-2024 Registered Referred MD [facility] [facility] Work Phone: Start: 08-15-2024 End: 08-15-2024 [facility]ulatory [facility] Work Phone: Start: 08-15-2024 End: 08-15-2024 Patient encounter procedure [facility] Work Phone: Start: 07-31-2024 End: 07-31-2024 ambulatory YESICA MCGUIRE Facility:[facility] Start: 07-31-2024 End: 07-31-2024 Patient encounter procedure Stephanie Grove OD Work Phone: Ophthalmology Comment on above: Combined forms of ag e-related cataract of both eyes (Primary Dx); Encounter for long-term (current) use of high-risk medication; Hyperopia with astigmatism and presbyopia, bilateral; Anatomical narrow angle, bilateral; History of bilateral YAG laser iridotomy Start: 07-28-2024 End: 07-28-2024 Office outpatient visit 15 minutes Andrea Miller MD Work Phone: Hematology/Oncology Comment on above: Ductal carcinoma in situ (DCIS) of left breast Start: 07-28-2024 Non-patient / Non-visit [facility] Physician [facility] Work Phone: Start: 07-28-2024 End: 07-28-2024 ambulatory YESICA MCGUIRE Facility:[facility] Start: 07-25-2024 End: 07-25-2024 Telephone encounter Andrea Miller MD Work Phone: Hematology/Oncology Comment on above: Lab Orders Start: 05-22-2024 End: 05-22-2024 ambulatory MD Yesica Mcguire Work Phone: [facility] Work Phone: Start: 05-22-2024 End: 05-22-2024 Patient encounter procedure MD Yesica Mcguire Work Phone: [facility] Work Phone: Start: 05-13-2024 End: 05-13-2024 Departed Referred MD Yesica Mcguire Work Phone: [facility] Work Phone: Start: 05-13-2024 End: 05-13-2024 ambulatory MD Yesica Mcguire Work Phone: [facility] Work Phone: Start: 04-10-2024 End: 04-10-2024 ambulatory [facility] Work Phone: Start: 04-10-2024 End: 04-10-2024 Patient encounter procedure [facility] Physician [facility] Work Phone: Start: 02-03-2024 Telephone encounter Enoch Shin Hematology/Oncology Comment on above: Tamoxifen RX Start: 12-22-2023 End: 12-22-2023 ambulatory KRYS SILVA Facility:[facility] Start: 12-22-2023 End: 12-22-2023 Patient encounter procedure Fauzia Silva MD Work Phone: Radiation Oncology Comment on above: Ductal carcinoma in situ (DCIS) of left breast (Primary Dx) Start: 09-15-2023 End: 09-15-2023 ambulatory Yesica Mcguire Other [facility] Other Start: 09-15-2023 Encounter for genera l adult medical examination without abnormal findings Yesica Mcguire [facility] Start: 09-15-2023 Periodic preventive med est patient 65yrs& older Yesica Mcguire [facility] Start: 07-30-2023 End: 07-30-2023 Patient encounter procedure Stephanie Grove OD Work Phone: Ophthalmology Comment on above: Encounter for long-t erm (current) use of high-risk medication (Primary Dx); Combined forms of age-related cataract of both eyes; Hyperopia with astigmatism and presbyopia, bilateral; Anatomical narrow angle, bilateral; History of bilateral YAG laser iridotomy Start: 06-30-2023 End: 06-30-2023 Office outpatient visit 25 minutes Andrea Miller MD Work Phone: Hematology/Oncology Comment on above: Ductal carcinoma in situ (DCIS) of left breast (Primary Dx) Start: 01-22-2023 Orders Only Carolina Cope OD Work Phone: Ophthalmology Comment on above: Long-term current us e of tamoxifen (Primary Dx); Encounter for long-term (current) use of high-risk medication Start: 12-16-2022 End: 12-17-[address] YESICA MCGUIRE Facility: Start: 12-15-2022 End: 12-15-2022 Patient encounter procedure Lashell Peña MD Work Phone: Gastroenterology Comment on above: Gastroesophageal ref lux disease without esophagitis (Primary Dx) Start: 09-14-2022 Refill Lashell olivas MD Work Phone: Gastroenterology Comment on above: Refill Request Start: 09-09-2022 Telephone encounter Lashell Rea MD Work Phone: Gastroenterology Comment on above: Results Start: 09-09-2022 ambulatory LASHELL PEÑA Facilit y:[facility] Start: 08-18-2022 End: 08-18-[address] YESICA MCGUIRE Facility: Start: 07-24-2022 Orders Only Carolina Yaalejandra OD Work Phone: Ophthalmology Comment on above: Long-term current us e of tamoxifen (Primary Dx) Start: 07-17-2022 End: 07-17-2022 Patient encounter procedure Breana Serna APRN.ACCOUNTING GENERALIST Work Phone: General Surgery Comment on above: S/P laparoscopic cho lecystectomy (Primary Dx) Start: 07-03-2022 End: 07-03-2022 ambulatory SHARRI JOEL Facility:[facility] Start: 07-03-2022 Telephone encounter Lashell Rea MD Work Phone: Gastroenterology Comment on above: Orders Start: 07-02-2022 End: 07-04-2022 ambulatory BISI FARIAS Facility:[facility] Start: 07-01-2022 Evaluation and management of inpatient MD Yesica Mcguire Work Phone: [facility] [place] [facility] Start: 05-25-2022 Refill Andrea elizalde MD Work Phone: Hematology/Oncology Comment on above: Refill Request Start: 05-22-2022 End: 05-22-2022 ambulatory Andrea Miller MD Work Phone: Hematology/Oncology Comment on above: Malignant neoplasm o f left breast in female, estrogen receptor positive, unspecified site of breast (HCC) (Primary Dx); Ductal carcinoma in situ (DCIS) of left breast Start: 05-22-2022 End: 05-22-2022 Patient encounter procedure Andrea Miller MD Work Phone: [facility] Start: 05-15-2022 Telephone encounter Andrea hargrove MD Work Phone: Hematology/Oncology Comment on above: Results Start: 01-31-2022 End: 01-31-2022 Departed Referred MD Yesica Mcguire Work Phone: [facility] Start: 01-23-2022 End: 01-23-2022 Orders Only Carolina Cope OD Work Phone: Ophthalmology Comment on above: Long-term current us e of tamoxifen (Primary Dx) Long-term current us e of tamoxifen (Primary Dx); Anatomical narrow angle, bilateral; History of bilateral YAG laser iridotomy; Hypertensive retinopathy of left eye Start: 01-05-2022 End: 01-06-[address] YESICA MCGUIRE Facility:[facility] Procedures Date Procedure Procedure Detail Performing Clinician Start: 08-22-2024 Bacteria identified in Urine by Culture MD Yesica Mcguire Work Phone: Start: 07-31-2024 Computerized ophthalmic imaging retina Stephanie Grove OD Work Phone: Start: 07-30-2023 Computerized ophthalmic imaging retina Stephanie Grove OD Work Phone: Start: 07-02-2022 Antibody screen LASHELL PEÑA Comment on above: Order Comment: Specimen Type: BLOOD SPEC IMENOrdering Facility: [facility] Address: [address] [place] [address] Performed By: #### T [facility] ####[facility] [id number] [address] [place] Start: 01-23-2022 Computerized ophthalmic imaging retina Carolina Cope OD Work Phone: Start: 11-13-2021 Adult depression screening assessment Carolina Cope OD Work Phone: History of cholecystectomy S/P laparoscopic cholecystectomy Breana Serna SAXOPHONE ASSEMBLER.ACCOUNTING GENERALIST Work Phone: SARS Antigen (LFIA) MD Meera Mcguire Work Phone: Plan of Treatment Date Care Activity Detail Author Start: 2028 RSV Vaccine (1 - 1-dose 75+ series) RSV Vaccine (1 - 1-dose 75+ series) [facility] Start: 07-28-2027 Diabetes Screening Diabetes Screening [facility] Start: 07-21-2026 OCT MACULA CIRRUS OU (BOTH EYES) OCT MACULA CIRRUS OU (BOTH EYES) [facility] Imaging Routine Encounter for long-term (current) use of high-risk medication Expected: 07/21/2026 [facility] Work Phone: Comment on above: Expected: 07/21/2026 Start: 06-30-2026 Diabetes Screening Diabetes Screening [facility] Start: 12-23-2025 DIABETES SCREEN DIABETES SCREEN [facility] Start: 08-01-2025 End: 08-01-2025 Patient encounter procedure 08/01/2025 2:00 PM EDT Office Visit [facility] Ophthalmology [address] [place], [place] [id number] Stephanie Grove S, OD [address] [place], [place] [id number] Annual Full Eye Exam with mac OCTs Ophthalmology Comment on above: Annual Full Eye Exam with mac OCTs Start: 07-28-2025 End: 10-27-2025 CBC W Auto Differential panel - Blood COMPLETE BLOOD COUNT AND DIFFERENTIAL Lab Routine Ductal carcinoma in situ (DCIS) of left breast Expected: 07/28/2025 (Approximate), Expires: 10/27/2025 [facility] Work Phone: Comment on above: Expected: 07/28/2025 (Approximate), Expi res: 10/27/2025 Start: 07-28-2025 End: 10-27-2025 Comprehensive metabolic 2000 panel - Serum or Plasma COMPREHENSIVE METABOLIC PANEL Lab Routine Ductal carcinoma in situ (DCIS) of left breast Expected: 07/28/2025 (Approximate), Expires: 10/27/2025 [facility] Comment on above: Expected: 07/28/2025 (Approximate), Expi res: 10/27/2025 Start: 07-27-2025 End: 07-27-2025 Follow-up encounter 07/27/2025 1:15 PM EDT Visit (SP) Office Hematology/Oncology [address] [place] [address] Andrea Miller MD [address] [place] [address] 1 Year follow up with lab Hematology/Oncology Comment on above: 1 Year follow up with lab Start: 07-27-2025 End: 07-27-2025 Patient encounter procedure 07/27/2025 1:00 PM EDT Office Visit [facility] [address] [place] [address] 1 Year follow up with lab [facility] Comment on above: 1 Year follow up with lab Start: 07-19-2025 OCT MACULA CIRRUS OU (BOTH EYES) OCT MACULA CIRRUS OU (BOTH EYES) [facility] Imaging Routine Encounter for long-term (current) use of high-risk medication Expected: 07/19/2025 [facility] Work Phone: Comment on above: Expected: 07/19/2025 Start: 07-04-2025 DIABETES SCREEN DIABETES SCREEN [facility] Start: 07-03-2025 DIABETES SCREEN DIABETES SCREEN [facility] Start: 05-22-2025 DIABETES SCREEN DIABETES SCREEN [facility] Start: 12-22-2024 End: 01-20-2025 MG Breast - bilateral Diagnostic MILAGROS DIAGNOSTIC BILATERAL Radiology Routine Ductal carcinoma in situ (DCIS) of left breast Expected: 12/22/2024, Expires: 01/20/2025 [facility] Work Phone: Comment on above: Expected: 12/22/2024, Expires: Start: 12-21-2024 End: 12-21-2024 Patient encounter procedure 12/21/2024 10:45 AM EST Office Visit Radiation Oncology [address] [place] [address] Fauzia Silva MD [address] [place] [place] [address] 1 Yr Follow Up Radiation Oncology Comment on above: 1 Yr Follow Up Start: 11-13-2024 DIABETES SCREEN DIABETES SCREEN [facility] Start: 08-22-2024 Bacteria identified in Urine by Culture Urine Culture [facility] Start: 08-22-2024 End: 08-22-2024 Urine culture [facility] Start: 07-31-2024 End: 07-31-2024 Patient encounter procedure 07/31/2024 2:45 PM EDT Office Visit [facility] Ophthalmology [address] [place] [address] Stephanie Grove S, OD [address] [place] [address] Annual Full Eye Exam, iCare, with Mac OCT Ophthalmology Comment on above: Annual Full Eye Exam, iCare, with Mac OC T Start: 07-28-2024 End: 07-28-2024 Follow-up encounter 07/28/2024 3:15 PM EDT Visit (SP) Office Hematology/Oncology [address] [place] [address] Andrea Miller MD [address] [place] [address] 1 Year follow up with lab / Left detailed message to move this appt to week of 9-30-24 PM appt if possible/ Hematology/Oncology Comment on above: 1 Year follow up with lab / Left detaile d message to move this appt to week of 9-30-24 PM appt if possible/ Start: 07-28-2024 End: 07-28-2024 Patient encounter procedure 07/28/2024 3:00 PM EDT Office Visit [facility] [address] [place] [address] 1 Year follow up with lab / Moved appt wm Buckley [facility] Comment on above: 1 Year follow up with lab / Moved appt steve Buckley Start: 07-28-2024 End: 07-25-2025 CBC W Auto Differential panel - Blood COMPLETE BLOOD COUNT AND DIFFERENTIAL Lab Routine Ductal carcinoma in situ (DCIS) of left breast Expected: 07/28/2024 (Approximate), Expires: 07/25/2025 [facility] Work Phone: Comment on above: Expected: 07/28/2024 (Approximate), Expi res: 07/25/2025 Start: 07-28-2024 End: 07-25-2025 Comprehensive metabolic 2000 panel - Serum or Plasma COMPREHENSIVE METABOLIC PANEL Lab Routine Ductal carcinoma in situ (DCIS) of left breast Expected: 07/28/2024 (Approximate), Expires: 07/25/2025 [facility] Comment on above: Expected: 07/28/2024 (Approximate), Expi res: 07/25/2025 Start: 06-30-2024 End: 06-30-2024 CBC W Auto Differential panel - Blood CBC + DIFF Lab Routine Ductal carcinoma in situ (DCIS) of left breast Expected: 06/30/2024 (Approximate), Expires: 06/30/2024 [facility] Work Phone: Comment on above: Expected: 06/30/2024 (Approximate), Expi res: 06/30/2024 Start: 06-30-2024 End: 06-30-2024 Comprehensive metabolic 2000 panel - Serum or Plasma COMP METABOLIC PANEL Lab Routine Ductal carcinoma in situ (DCIS) of left breast Expected: 06/30/2024 (Approximate), Expires: 06/30/2024 [facility] Work Phone: Comment on above: Expected: 06/30/2024 (Approximate), Expi res: 06/30/2024 Start: 06-25-2024 Covid-19 Vaccine () Covid-19 Vaccine () [facility] Start: 06-25-2024 Influenza vaccination [facility] Start: 10-28-2023 Screening for malignant neoplasm of colon [facility] Start: 10-25-2023 Advance Directive Discussion Advance Directive Discussion [facility] Start: 10-25-2023 Behavioral Health Screening Behavioral Health Screening [facility] Start: 10-25-2023 Depression Assessment Depression Assessment [facility] Start: 06-25-2023 Covid-19 Vaccine () Covid-19 Vaccine () [facility] Start: 06-25-2023 Influenza vaccination Influenza Vaccine (#1) [facility] Start: 02-07-2023 End: 07-17-2023 OCT MACULA CIRRUS OU (BOTH EYES) [facility] Work Phone: Comment on above: Expected: 02/07/2023, Expires: Start: 12-22-2022 End: 05-22-2023 CBC W Auto Differential panel - Blood CBC + DIFF Lab Routine Malignant neoplasm of left breast in female, estrogen receptor positive, unspecified site of breast (HCC) Ductal carcinoma in situ (DCIS) of left breast Expected: 12/22/2022 (Approximate), Expires: 05/22/2023 [facility] Work Phone: Comment on above: Expected: 12/22/2022 (Approximate), Expi res: 05/22/2023 Start: 12-22-2022 End: 05-22-2023 Comprehensive metabolic 2000 panel - Serum or Plasma COMP METABOLIC PANEL Lab Routine Malignant neoplasm of left breast in female, estrogen receptor positive, unspecified site of breast (HCC) Ductal carcinoma in situ (DCIS) of left breast Expected: 12/22/2022 (Approximate), Expires: 05/22/2023 [facility] Work Phone: Comment on above: Expected: 12/22/2022 (Approximate), Expi res: 05/22/2023 Start: 11-13-2022 Adult depression screening assessment DEPRESSION SCREENING [facility] Start: 10-25-2022 ADVANCE DIRECTIVE DISCUSSION ADVANCE DIRECTIVE DISCUSSION [facility] Start: 10-25-2022 DEPRESSION ASSESSMENT DEPRESSION ASSESSMENT [facility] Start: 07-01-2022 Magnesium measurement [facility] Work Phone: Start: 07-01-2022 End: 07-01-2022 [facility] Work Phone: Start: 07-01-2022 Hospital admission [facility] Work Phone: Start: 06-30-2022 US Gallbladder [facility] Work Phone: Start: 06-30-2022 US scan of gallbladder US gall bladder [facility] Start: 06-30-2022 Plain chest X-ray XR chest 1V portable [facility] Start: 06-30-2022 XR Chest Single view [facility] Work Phone: Start: 06-25-2022 Influenza vaccination [facility] Start: 05-15-2022 End: 2022 CBC W Auto Differential panel - Blood CBC + DIFF Lab Routine Malignant neoplasm of left breast in female, estrogen receptor positive, unspecified site of breast (HCC) Expected: 05/15/2022, Expires: 2022 [facility] Work Phone: Comment on above: Expected: 05/15/2022, Expires: 2 Start: 05-15-2022 End: 2022 Comprehensive metabolic 2000 panel - Serum or Plasma COMP METABOLIC PANEL Lab Routine Malignant neoplasm of left breast in female, estrogen receptor positive, unspecified site of breast (HCC) Expected: 05/15/2022, Expires: 2022 [facility] Work Phone: Comment on above: Expected: 05/15/2022, Expires: 2 Start: 10-25-2021 ADVANCE DIRECTIVE DISCUSSION ADVANCE DIRECTIVE DISCUSSION [facility] Start: 10-25-2021 DEPRESSION ASSESSMENT DEPRESSION ASSESSMENT [facility] Start: 2018 BONE DENSITY BONE DENSITY [facility] Start: 2018 Bone Density Screening Bone Density Screening [facility] Start: 2018 Pneumococcal Vaccine: 65+ (1 - PCV) Pneumococcal Vaccine: 65+ (1 - PCV) [facility] Start: 2018 Pneumococcal Vaccine: 65+ (1 of 1 - PCV) Pneumococcal Vaccine: 65+ (1 of 1 - PCV) [facility] Start: 2018 PNEUMOCOCCAL: 65+ (1 - PCV) PNEUMOCOCCAL: 65+ (1 - PCV) [facility] Start: 2018 PNEUMOVAX AGE 65 AND OVER WITH 5YR LOOKBACK (#1) PNEUMOVAX AGE 65 AND OVER WITH 5YR LOOKBACK (#1) [facility] Start: 2018 Screening for osteoporosis Bone Density Screening [facility] Start: 2013 RSV Vaccine (1 - 1-dose 60+ series) RSV Vaccine (1 - 1-dose 60+ series) [facility] Start: 2003 SHINGRIX VACCINE (1 of 2) SHINGRIX VACCINE (1 of 2) [facility] Start: 1998 COLOGUARD (FIT-DNA) COLOGUARD (FIT-DNA) [facility] Start: 1998 Colonoscopy COLONOSCOPY [facility] Start: 1998 COLORECTAL CANCER SCREENING COLORECTAL CANCER SCREENING [facility] Start: [address] COLONOGRAPHY [facility] Start: 1998 FECAL OCCULT BLOOD FECAL OCCULT BLOOD [facility] Start: 1998 Lipid 1996 panel - Serum or Plasma Lipid Screening [facility] Start: 1998 Lipid panel Lipid Screening [facility] Start: 1998 LIPID SCREEN LIPID SCREEN [facility] Start: 1998 Screening for malignant neoplasm of colon [facility] Start: 1998 SIGMOIDOSCOPY SIGMOIDOSCOPY [facility] Start: 1993 Mammography [facility] Start: 1993 Screening for malignant neoplasm of breast Mammogram Screening [facility] Start: 1972 Urine microalbumin profile [facility] Start: 1971 Anxiety Screening Anxiety Screening [facility] Start: 1971 Depression Screening Depression Screening [facility] Start: 1971 HEPATITIS C SCREENING HEPATITIS C SCREENING [facility] Start: 1971 Hepatitis C screening Hepatitis C Screening [facility] Start: 1958 COVID-19 VACCINE (1) COVID-19 VACCINE (1) [facility] Start: 01-12-1954 COVID-19 VACCINE (#1) COVID-19 VACCINE (#1) [facility] Alanine aminotransfe rase [Enzymatic activity/volume] in Serum or Plasma by No addition of P-5'-P [facility] Work Phone: Albumin [Mass/volume ] in Serum or Plasma [facility] Work Phone: Albumin/Globulin ratio [facility] Work Phone: Alkaline phosphatase [Enzymatic activity/volume] in Serum or Plasma [facility] Work Phone: Anion gap measurement [facility] Work Phone: aPTT in Platelet poo r plasma by Coagulation assay [facility] Work Phone: Aspartate aminotransferase [Enzymatic activity/volume] in Serum or Plasma [facility] Work Phone: Basophil count [facility] Work Phone: Basophil percent differential count [facility] Work Phone: Bilirubin.total [Mass/volume] in Serum or Plasma [facility] Work Phone: Calcium [Mass/volume ] in Serum or Plasma [facility] Work Phone: Carbon dioxide, tota l [Moles/volume] in Serum or Plasma [facility] Work Phone: Chloride [Moles/volu me] in Serum or Plasma [facility] Work Phone: Creatinine and Glome rular filtration rate.predicted panel - Serum, Plasma or Blood [facility] Work Phone: End: 07-03-2023 EGD DIAGNOSTIC EGD DIAGNOSTIC Endoscopy Routine Esophagitis 1 Occurrences starting 07/03/2022 until 07/03/2023 [facility] Work Phone: Comment on above: 1 Occurrences starting 07/03/2022 until 07/03/2023 Eosinophil percent differential count [facility] Work Phone: Eosinophils [#/volum e] in Blood [facility] Work Phone: End: 07-03-2023 ERCP ERCP Endoscopy Routine Encounter for removal of biliary stent 1 Occurrences starting 07/03/2022 until 07/03/2023 [facility] Work Phone: Comment on above: 1 Occurrences starting 07/03/2022 until 07/03/2023 Erythrocyte mean corpuscular volume determination [facility] Work Phone: Erythrocytes [#/volu me] in Blood [facility] Work Phone: Globulin [Mass/volum e] in Serum [facility] Work Phone: Glucose [Mass/volume ] in Serum or Plasma [facility] Work Phone: Hematocrit [Volume Fraction] of Blood [facility] Work Phone: Hemoglobin [Mass/vol ume] in Blood [facility] Work Phone: Hemoglobin distribut ion, width determination [facility] Work Phone: INR in Platelet poor plasma by Coagulation assay [facility] Work Phone: Leukocytes [#/volume ] in Blood [facility] Work Phone: Lymphocyte count [facility] Work Phone: Lymphocyte percent differential count [facility] Work Phone: Magnesium measurement [facility] Work Phone: Mean corpuscular hemoglobin concentration determination [facility] Work Phone: Mean corpuscular hemoglobin determination [facility] Work Phone: Measurement of renal function [facility] Work Phone: Monocyte count [facility] Work Phone: Monocyte percent differential count [facility] Work Phone: Neutrophil count [facility] Work Phone: Neutrophil percent differential count [facility] Work Phone: Platelet mean volume determination [facility] Work Phone: Platelets [#/volume] in Blood [facility] Work Phone: Potassium [Moles/vol ume] in Serum or Plasma [facility] Work Phone: Protein [Mass/volume ] in Serum or Plasma [facility] Work Phone: Sodium [Moles/volume ] in Serum or Plasma [facility] Work Phone: Urea nitrogen [Mass/volume] in Serum or Plasma [facility] Work Phone: XR Chest 2 Views [facility] Payers Date Payer Category Payer Unknown [employer] PPO [id number] 2020-Present [phone] [address] [place] [address] PPO [id number] 2020 Unknown [employer] PPO [id number] 2020-Present [phone] [address] [place] [id number] PPO [id number] 2018 Medicare MEDICARE MEDICAR E A [id number] 2018-Present [phone] [address] [place] [address] Medicare [id number] 1959 Unknown [id number] 1953 Unknown [id number] 1953 Unknown [id number] 1953 Unknown [id number] Medicare [id number] Self-pay Self Pay [id number] Social History Date Type Detail Facility Start: 06-03-2015 End: 07-01-2022 Tobacco smoking status NHIS Ex-smoker [facility] End: 06-03-1986 History of tobacco use Current smoker [facility] Start: 06-03-2015 End: 06-30-2023 Tobacco use and exposure Smokeless tobacco non-user [facility] Start: 12-16-2021 End: 07-31-2024 Alcohol intake Ex-drinker (finding) [facility] Start: 06-03-2015 History SDOH Alcohol Comment Socially [facility] Start: 1955 Sex Assigned At Not on file C [facility] Start: 1955 Sex Assigned At Female F [facility] Start: 05-12-2022 End: 09-09-2022 Exposure to SARS-CoV-2 (event) Not sure [facility] End: 06-03-1986 History of tobacco use Cigarette Smoker [facility] Start: 07-02-2022 History SDOH Financial 5 [facility] Start: 07-02-2022 History SDOH Food Worry 1 [facility] Start: 07-02-2022 History SDOH Transpo rt Med 2 [facility] History of tobacco use Passive smoker [facility] Start: 07-02-2022 End: 06-30-2023 History of Social function [facility] Start: 07-02-2022 End: 06-30-2023 Tobacco use panel [facility] How hard is it for y ou to pay for the very basics like food, housing, medical care, and heating Not hard at all [facility] (I/We) worried whekierra er (my/our) food would run out before (I/we) got money to buy more. Never true [facility] In the past 12 month s, was there a time when you were not able to pay the mortgage or rent on time? No [facility] Medical Equipment Procedure Code Equipment Code Equipment Origin al Text Equipment Identifier Dates Stent Wallflex 1 0mm 8.5fr Permalume 60mm Biliary Rapid Exchange Self Expand - [id number] Start: 07-03-2022 Clinical Notes 01-23-2022 to 07-31-2024 Stephanie Grove S, OD - 07/31/2024 4:08 PM EDTPatient Lyndsey Monteiro APRN.ACCOUNTING GENERALIST - 07/28/2024 3:15 PM EDTTelephone Encounter - Gisselle Jones MA - 07/25/2024 1:28 PM EDT Note Date & Type Note Facility 07-31-2024 Note Date of Procedure 07/31/2024. Interpretation Right Eye Abnormal foveal contour. Left Eye Abnormal foveal contour. Interval Change Right Eye Stable. Left Eye Stable. [facility] 07-31-2024 Note HNO ID: [id number] Author: STEPHANIE GROVE OD Service: ? Author Type: [employer] ENGINEER Type: Progress Notes Filed: 07/31/2024 16:57 Note Text: ASSESSMENT/PLAN: 1. 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 Combined forms of age-related cataract of both eyes - ICD9: 366.19, ICD10: H25.813 (primary diagnosis) Pt ed re future Cataract evaluation 3. Hyperopia with astigmatism and presbyopia, bilateral - ICD9: 367.0, 367.20, 367.4, ICD10: H52.03, H52.203, H52.4 4. Anatomical narrow angle, bilateral - ICD9: 365.02, ICD10: H40.033 5. History of bilateral YAG laser iridotomy - ICD9: V45.69, ICD10: Z98.890 Patent LPIs Both eyes with MGressel 2011July 31, 2024 4:08 PM [facility] 07-31-2024 History of Presen t illness Narrative ASSESSMENT/PLAN: 1. 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 Combined forms of age-related cataract of both eyes - ICD9: 366.19, ICD10: H25.813 (primary diagnosis) Pt ed re future Cataract evaluation 3. Hyperopia with astigmatism and presbyopia, bilateral - ICD9: 367.0, 367.20, 367.4, ICD10: H52.03, H52.203, H52.4 4. Anatomical narrow angle, bilateral - ICD9: 365.02, ICD10: H40.033 5. History of bilateral YAG laser iridotomy - ICD9: V45.69, ICD10: Z98.890 Patent LPIs Both eyes with MGressel 2011July 31, 2024 4:08 PM documented in this encounter [facility] 07-28-2024 Lyndsey Pacheco APRN.ACCOUNTING GENERALIST - 07/28/2024 3:43 PM EDT RTC with me in 12 months with labs and exam same day. documented in this encounter [facility] 07-28-2024 History of Presen t illness Narrative Images from the original note were not included. NAME: Pranav Kemp CLINIC NO.: [id number] DATE OF SERVICE: 07/28/2024 (David) Some elements in this clinic note that are critical to medical decision making have been carefully reviewed and included from a prior clinic note dated: July 02, 2023 (Ester) Referring Provider: Jevon Patterson Additional Clinicians involved in Pranav Kemp's care: Dr. Silva, Carolina Cope CC: Follow-up for breast cancer. 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 Initial diagnosis 2020-11-25, left breast lumpectomy 2020-12-25. ER/NV both strongly positive grade 2, cribriform pattern. She has completed radiation and is on hormone suppression. PLAN: RTC with me in 12 months with labs and exam same day. Schedule Mammograms for November 2024 (Dr. Silva ordered) Continue Tamoxifen through 03/2026 HPI: CASE HISTORY: Reverse Chronological Order 12/17/2023 - Diagnostic Mammogram: No significant suspicious finding. Scattered benign-appearing calcifications are present. No significant change has occurred. BIRADS: 2: Benign 04/02/2021-Current - Tamoxifen anticipated for 5 years. 02/24/2021-03/25/2021 - Left breast radiation 4256 cGy in 16 fractions with boost of 1000 cGy in 4. 01/21/2021 - Left breast lumpectomy. Updated Visit, July 28, 2024: Pranav returns today with her Doing well with the tamoxifen. Labs reviewed and without any clinically significant abnormalities. Denies hot flashes. Has vaginal dryness. Some dyspareunia, information given on non-hormonal lubricants. Denies bowel or bladder issues. Going to the zoo with her grand-kids this weekend. Updated Visit, June 30, 2023: Pranav returns with Cash - grand-kids (adoptive) are having major issues creating stress for the family. She is otherwise doing well and tolerating tamoxifen. Labs reviewed and are without any clinically significant abnormalities. Updated Visit, December 23, 2022: 12/16/2022 Mammogram : Cat 2 - benign. June 2022 - Cholecystectomy Labs stable No other issues - Dr. Silva examined her today and will see her in 1 year. Cash accompanying her. Sees her ophthalmology end of the month. Updated Visit, May 22, 2022: Continues to do very well with tolerance to Tamoxifen. Rash on abdomen - pale and slightly pinkish. She states she gets these often. And right forearm Mammography from November noted to be benign. Updated Visit, November 13, 2021: Pranav returns with her Cash, she is doing well on current chemoprevention endocrine therapy with tolerable AE's. Mammogram of left breast will be due in 1 month., She is concerned with Tamoxifen and ophthalmologic changes which Dr. Cope is evaluating. Updated Visit, August 14, 2021: Pranav returns with her Cash for left breast DCIS. In May she had her left diagnostic mammogram which was diagnostic category 3 with changes likely consistent with postsurgical and radiation changes. The recommended follow up mammogram in 6 months. Chaperoned Breast Exam showed typical radiation changes on left. Right breast is normal. Aside from occasional hot flashes, she is tolerating tamoxifen well. Updated Visit, May 14, 2021: Neris is 65 years old and returns specimen Cash for follow-up on tamoxifen in the adjuvant setting for DCIS. She still has some irritation in her left axilla and also has intermittent arthralgias but only last a day or 2. She is otherwise without complaints. She very kindly brought in some of her famous chocolate chip oatmeal cookies. Updated Visit, April 02, 2021: Pranav returns after completing RT on 03/25/2021 for left breast DCIS s/p resection 12/25/2020. We discussed adjuvant endocrine therapy with regards to AI or SERM. She will start on Tamoxifen. History of varicose veins - discussed potential for DVT's. Discussed risk of uterine Ca but she has had a hysterectomy. Initial Visit, February 05, 2021: Pranav Kemp presents today Hematology and Oncology evaluation. She is a 65 year old female who is here with Cash for a recent diagnosis and resection of a left breast DCIS with lumpectomy. Found left breast mass on routine mammographyof health screening. In October 2020. On 2020-11-19 she underwent a left diagnostic digital mammogram and ultrasound. This was followed by an ultrasound guided biopsy of the left breast on 2020-11-25. Pathology reported a complex papillary lesion with foci of ductal carcinoma in situ, cribriform type, nuclear grade 2 ER and NV both greater than 95%. She then underwent 2020-12-25 left breast lumpectomy of 11 o'clock position and 7 o'clock position as well as excision of inclusion cyst mid chest. Axillary nodes were unable to be found through tracer studies. Final diagnosis primary tumor pTis (DCIS). Margins were negative. Left breast lesion at 11 o'clock position consistent with residual complex papillary lesion with small foci of ductal carcinoma in situ, cribriform pattern, nuclear grade 2. Left breast lesion 7 o'clock position excision consistent with breast current parenchyma with usual ductal hyperplasia sclerosing adenosis. She developed a seroma post procedurally following her ultrasound-guided biopsy. This is notable on exam and is yet to resolve. She has been referred for medical oncology opinion and ongoing follow-up as well as radiation oncology for consolidation. She will need adjuvant hormone suppression. REVIEW OF SYSTEMS Per HPI and otherwise negative by full review of organ systems. ECOG PERFORMANCE STATUS: 0 PHYSICAL EXAMINATION: Vitals: BP 170/74 Pulse 86 Temp (Src) 97.8 (Temporal) Resp 18 Wt 169 lb 8.5 oz (76.9kg) SpO2 100% Body surface area is 1.89 meters squared. Exam limited to gross visualization where appropriate. Gen.: This is an age-appropriate patient in no acute distress. Head: Appears atraumatic with no visible lesions. Eyes: Pupils equally round and reactive to light, extraocular muscles are intact. Neck: Supple. Respiratory: Appears to be respiring comfortably. Neurologic: Nonfocal to gross visualization. Alert and oriented 3. Psychiatric: No evidence of inappropriate anxiety or depression. Skin: Visible areas of skin without rash, lesions, wounds or petechiae. Prior exam for reference: bilateral pendulous female breasts - left with unchanged inverted nipple following the surgery with further contraction consistent with post radiation skin changes and hilton. otherwise benign exam. Right breast is without abnormalities. ALLERGIES: ALLERGIES Allergen Reactions Acetaminophen-Codei* Rash, Hives Berries Rash Ciprofibrate Unknown Ciprofloxacin Hives Codeine Unknown Grape GI Upset Keflex [Cephalexin] Hives, Itching Kenalog-H Other: See Comments Blood clots Latex Hives Montelukast Unknown Mushroom Rash Naproxen Mental Status Change Neomycin-Bacitracin* Unknown Novacaine [Procaine] Mental Status Change Peanuts Mental Status Change Shellfish Derived Mental Status Change Strawberries Rash Sulfa (Sulfonamide * Rash, Hives Tree Nut Mental Status Change Triamcinolone Unknown MEDICATIONS: pantoprazole DR (PROTONIX) 40 mg tablet Take 1 tablet by mouth once daily. acetaminophen (TYLENOL) 325 mg tablet Take 2 tablets by mouth every 6 hours as needed for pain. losartan (COZAAR) 25 mg tablet Take 25 mg by mouth once daily. loratadine (CLARITIN ORAL) Take by mouth. albuterol HFA (PROVENTIL HFA, VENTOLIN HFA) 90 mcg/actuation inhaler Inhale as instructed. tamoxifen (NOLVADEX) 20 mg tablet Take 1 tablet (20 mg) by mouth once daily. LABORATORY VALUES: WBC (k/uL) Date Value 07/28/2024 7.15 RBC (m/uL) Date Value 07/28/2024 3.83 (L) Hemoglobin (g/dL) Date Value 07/28/2024 12.0 Hematocrit (%) Date Value 07/28/2024 35.5 (L) MCV (fL) Date Value 07/28/2024 92.7 MCH (pg) Date Value 07/28/2024 31.3 MCHC (g/dL) Date Value 07/28/2024 33.8 RDW-CV (%) Date Value 07/28/2024 12.7 Platelet Count (k/uL) Date Value 07/28/2024 325 MPV (fL) Date Value 07/28/2024 9.2 Glucose (mg/dL) Date Value 07/28/2024 99 BUN (mg/dL) Date Value 07/28/2024 10 Creatinine (mg/dL) Date Value 07/28/2024 0.94 Sodium (mmol/L) Date Value 07/28/2024 139 Potassium (mmol/L) Date Value 07/28/2024 4.0 Chloride (mmol/L) Date Value 07/28/2024 104 CO2 (mmol/L) Date Value 07/28/2024 27 Protein, Total (g/dL) Date Value 07/28/2024 6.7 Albumin (g/dL) Date Value 07/28/2024 3.9 Calcium, Total (mg/dL) Date Value 07/28/2024 9.1 Alkaline Phosphatase (U/L) Date Value 07/28/2024 54 Bilirubin, Total (mg/dL) Date Value 07/28/2024 0.3 AST (U/L) Date Value 07/28/2024 12 (L) ALT (U/L) Date Value 07/28/2024 8 DIAGNOSIS: (D05.12) Ductal carcinoma in situ (DCIS) of left breast Plan: tamoxifen (NOLVADEX) 20 mg tablet, COMPLETE BLOOD COUNT AND DIFFERENTIAL, COMPREHENSIVE METABOLIC PANEL PAST MEDICAL HISTORY Diagnosis Date Asthma DCIS (ductal carcinoma in situ) 2020 Varicose veins of both lower extremities PAST SURGICAL HISTORY Procedure Laterality Date BREAST LUMPECTOMY HX Left 2020 HYSTERECTOMY HX 1989 L'SCOPE CHOLECYSTECTOMY 07/03/2022 LAPS SURG CHOLECYSTECTOMY W/CHOLANGIOGRAPHY 07/02/2022 PAST SURGICAL HISTORY OF Bilateral 06/10/2012 Laser iridotomy REPAIR ELBOW FRACTURE VEIN SURGERY (SPECIFY LOCATION) HX Dr. John Das Social History Tobacco Use Smoking status: Former Current packs/day: 0.00 Types: Cigarettes Quit date: 06/03/1986 Years since quittin.1 Passive exposure: Past Smokeless tobacco: Never Substance Use Topics Alcohol use: Not Currently Drug use: No FAMILY HISTORY Problem Relation Age of Onset Alzheimer's Disease Mother Cataract Father Glaucoma Father other (esophageal cancer) Father other (stomach cancer) Father . Lyndsey Hercules MSN, SAXOPHONE ASSEMBLER, C IRON WORKER-C, OCN Hematology and Oncology Services Provided at: [place], [place] CC: Jevon Patterson MD (DrC) [address] [facility] [phone] Yesica Mcguire MD [address] [facility] [phone] documented in this encounter [facility] 07-28-2024 Note HNO ID: [id number] Author: LYNDSEY HERCULES APRN.ACCOUNTING GENERALIST Service: ? Author Type: Nurse Practitioner Type: Progress Notes Filed: 07/28/2024 16:25 Note Text: NAME: Pranav Kemp CLINIC NO.: [id number] DATE OF SERVICE: 07/28/2024 (David) Some elements in this clinic note that are critical to medical decision making have been carefully reviewed and included from a prior clinic note dated: July 02, 2023 (Ester) Referring Provider: Jevon Patterson Additional Clinicians involved in Pranav Kemp's care: Dr. Silva, Carolina Cope CC: Follow-up for breast cancer. 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 Initial diagnosis 2020-11-25, left breast lumpectomy 2020-12-25. ER/NV both strongly positive grade 2, cribriform pattern. She has completed radiation and is on hormone suppression. PLAN: RTC with me in 12 months with labs and exam same day. Schedule Mammograms for November 2024 (Dr. Silva ordered) Continue Tamoxifen through 03/2026 HPI: CASE HISTORY: Reverse Chronological Order 12/17/2023 - Diagnostic Mammogram: No significant suspicious finding. Scattered benign-appearing calcifications are present. No significant change has occurred. BIRADS: 2: Benign 04/02/2021-Current - Tamoxifen anticipated for 5 years. 02/24/2021-03/25/2021 - Left breast radiation 4256 cGy in 16 fractions with boost of 1000 cGy in 4. 01/21/2021 - Left breast lumpectomy. Updated Visit, July 28, 2024: Pranav returns today with her Cash. Doing well with the tamoxifen. Labs reviewed and without any clinically significant abnormalities. Denies hot flashes. Has vaginal dryness. Some dyspareunia, information given on non-hormonal lubricants. Denies bowel or bladder issues. Going to the zoo with her grand-kids this weekend. Updated Visit, June 30, 2023: Pranav returns with Cash - grand-kids (adoptive) are having major issues creating stress for the family. She is otherwise doing well and tolerating tamoxifen. Labs reviewed and are without any clinically significant abnormalities. Updated Visit, December 23, 2022: 12/16/2022 Mammogram : Cat 2 - benign. June 2022 - Cholecystectomy Labs stable No other issues - Dr. Silva examined her today and will see her in 1 year. Cash accompanying her. Sees her ophthalmology end of the month. Updated Visit, May 22, 2022: Continues to do very well with tolerance to Tamoxifen. Rash on abdomen - pale and slightly pinkish. She states she gets these often. And right forearm Mammography from November noted to be benign. Updated Visit, November 13, 2021: Pranav returns with her Cash, she is doing well on current chemoprevention endocrine therapy with tolerable AE's. Mammogram of left breast will be due in 1 month., She is concerned with Tamoxifen and ophthalmologic changes which Dr. Cope is evaluating. Updated Visit, August 14, 2021: Pranav returns with her Cash for left breast DCIS. In May she had her left diagnostic mammogram which was diagnostic category 3 with changes likely consistent with postsurgical and radiation changes. The recommended follow up mammogram in 6 months. Chaperoned Breast Exam showed typical radiation changes on left. Right breast is normal. Aside from occasional hot flashes, she is tolerating tamoxifen well. Updated Visit, May 14, 2021: Neris is 65 years old and returns specimen Cash for follow-up on tamoxifen in the adjuvant setting for DCIS. She still has some irritation in her left axilla and also has intermittent arthralgias but only last a day or 2. She is otherwise without complaints. She very kindly brought in some of her famous chocolate chip oatmeal cookies. Updated Visit, April 02, 2021: Pranav returns after completing RT on 03/25/2021 for left breast DCIS s/p resection 12/25/2020. We discussed adjuvant endocrine therapy with regards to AI or SERM. She will start on Tamoxifen. History of varicose veins - discussed potential for DVT's. Discussed risk of uterine Ca but she has had a hysterectomy. Initial Visit, February 05, 2021: Pranav Kemp presents today Hematology and Oncology evaluation. She is a 65 year old female who is here with Cash for a recent diagnosis and resection of a left breast DCIS with lumpectomy. Found left breast mass on routine mammographyof health screening. In October 2020. On 2020-11-19 she underwent a left diagnostic digital mammogram and ultrasound. This was followed by an ultrasound guided biopsy of the left breast on 2020-11-25. Pathology reported a complex papillary lesion with foci of ductal carcinoma in situ, cribriform type, nuclear grade 2 ER and NV both greater than 95%. She then underwent 2020-12-25 left breast lumpectomy of 11 o'clock position and 7 o'clock position as well as excision of (more content not included)... [facility] 07-25-2024 Telephone encounter Note Patient has an appt on 07/28. Last note states labs same day. Would you like labs? [facility] 07-25-2024 Miscellaneous Notes Patient has an appt on 07/28. Last note states labs same day. Would you like labs? documented in this encounter [facility] 02-03-2024 Miscellaneous Notes [facility] Needs [facility] be [facility] supply to get local. Scot: pended; please review and sign Enoch Beckett RN documented in this encounter [facility] 12-22-2023 History of Presen t illness Narrative Radiation Oncology Follow Up Note PATIENT NAME: Pranav Kemp PATIENT DIAGNOSIS: Breast cancer, left, DCIS UIQ, pathologic stage 0 [id number], ER-positive and NV-positive, s/p partial mastectomy. RADIATION SUMMARY:DATES OF TREATMENT: 02/24/2021- 03/25/2021 AREA TREATED: Left Breast DELIVERED DOSE: Area: Left Breast 4,256 cGy in 16 fractions, 2 Capone, 3D Conformal, 6MV/18 MV DELIVERED DOSE: Area: Left Breast Boost 1,000 cGy in 4 fractions, 3 Capone, 3D Conformal, 6MV and 10 MV with daily CBCT TOTAL: 5,256 cGy in 20 fractions ELAPSED TIME: 29 days. INTERVAL HISTORY: Doing well denies any problems or concerns. Mammography, bilateral, 12/17/2023: Scattered areas of fibroglandular density. Category 2 benign finding. Normal interval 12-month return examination recommended. ALLERGIES Allergen Reactions Acetaminophen-Codei* Rash, Hives Berries Rash Ciprofibrate Unknown Ciprofloxacin Hives Codeine Unknown Grape GI Upset Keflex [Cephalexin] Hives, Itching Kenalog-H Other: See Comments Blood clots Latex Hives Montelukast Unknown Mushroom Rash Naproxen Mental Status Change Neomycin-Bacitracin* Unknown Novacaine [Procaine] Mental Status Change Peanuts Mental Status Change Shellfish Derived Mental Status Change Strawberries Rash Sulfa (Sulfonamide * Rash, Hives Tree Nut Mental Status Change Triamcinolone Unknown tamoxifen (NOLVADEX) 20 mg tablet Take 1 tablet (20 mg) by mouth once daily. pantoprazole DR (PROTONIX) 40 mg tablet Take 1 tablet by mouth once daily. acetaminophen (TYLENOL) 325 mg tablet Take 2 tablets by mouth every 6 hours as needed for pain. losartan (COZAAR) 25 mg tablet Take 25 mg by mouth once daily. loratadine (CLARITIN ORAL) Take by mouth. albuterol HFA (PROVENTIL HFA, VENTOLIN HFA) 90 mcg/actuation inhaler Inhale as instructed. PHYSICAL EXAM: VS: BP 155/80 Pulse 79 Temp 36.2 C (97.2 F) Resp 16 Wt 79.6 kg (175 lb 7.8 oz) SpO2 100% BMI 28.34 kg/m KPS: 100 General Appearance: Well appearing, alert, in no acute distress, well-hydrated, well nourished.. Skin: Skin color, texture, turgor normal, no suspicious rashes or lesions. Lungs: Lungs clear to auscultation. No wheezing, rhonchi, rales.. Heart: RRR without murmur Abdomen: Normal abdominal exam, Abdomen soft, non-tender. No masses, organomegaly. Lymph Nodes: No cervical lymphadenopathy, No supraclavicular lymphadenopathy and No axillary lymphadenopathy.. Breast: Left breast with mild asymmetry--decrease size compared to right No fibrosis or erythema evidence. No suspicious or dominant nodularity. Posttreatment skin change inframammary crease notable Right breast without dominant nodularity or skin changes. Impression: Breast cancer, left, DCIS UIQ, pathologic stage 0 [id number], ER-positive and NV-positive, s/p partial mastectomy, status post left breast radiation completed March 2021. Overall doing well without evidence of recurrence. No significant post treatment related problems. Recommend follow-up in 1 year when she is due for annual mammography. Signed by: Fauzia Silva MD cc: Yesica Mcguire MD ([facility]) [address] [place] [phone] documented in this encounter [facility] 12-22-2023 Note HNO ID: [id number] Author: Fauzia SILVA MD Service: ? Author Type: Physician Type: Progress Notes Filed: 12/22/2023 10:42 Note Text: Radiation Oncology Follow Up Note PATIENT NAME: Pranav Kemp PATIENT DIAGNOSIS: Breast cancer, left, DCIS UIQ, pathologic stage 0 [id number], ER-positive and NV-positive, s/p partial mastectomy. RADIATION SUMMARY:DATES OF TREATMENT: 02/24/2021- 03/25/2021 AREA TREATED: Left Breast DELIVERED DOSE: Area: Left Breast 4,256 cGy in 16 fractions, 2 Capone, 3D Conformal, 6MV/18 MV DELIVERED DOSE: Area: Left Breast Boost 1,000 cGy in 4 fractions, 3 Capone, 3D Conformal, 6MV and 10 MV with daily CBCT TOTAL: 5,256 cGy in 20 fractions ELAPSED TIME: 29 days. INTERVAL HISTORY: Doing well denies any problems or concerns. Mammography, bilateral, 12/17/2023: Scattered areas of fibroglandular density. Category 2 benign finding. Normal interval 12-month return examination recommended. ALLERGIES Allergen Reactions Acetaminophen-Codei* Rash, Hives Berries Rash Ciprofibrate Unknown Ciprofloxacin Hives Codeine Unknown Grape GI Upset Keflex [Cephalexin] Hives, Itching Kenalog-H Other: See Comments Blood clots Latex Hives Montelukast Unknown Mushroom Rash Naproxen Mental Status Change Neomycin-Bacitracin* Unknown Novacaine [Procaine] Mental Status Change Peanuts Mental Status Change Shellfish Derived Mental Status Change Strawberries Rash Sulfa (Sulfonamide * Rash, Hives Tree Nut Mental Status Change Triamcinolone Unknown tamoxifen (NOLVADEX) 20 mg tablet Take 1 tablet (20 mg) by mouth once daily. pantoprazole DR (PROTONIX) 40 mg tablet Take 1 tablet by mouth once daily. acetaminophen (TYLENOL) 325 mg tablet Take 2 tablets by mouth every 6 hours as needed for pain. losartan (COZAAR) 25 mg tablet Take 25 mg by mouth once daily. loratadine (CLARITIN ORAL) Take by mouth. albuterol HFA (PROVENTIL HFA, VENTOLIN HFA) 90 mcg/actuation inhaler Inhale as instructed. PHYSICAL EXAM: VS: BP 155/80 Pulse 79 Temp 36.2 ?C (97.2 ?F) Resp 16 Wt 79.6 kg (175 lb 7.8 oz) SpO2 100% BMI 28.34 kg/m? KPS: 100 General Appearance: Well appearing, alert, in no acute distress, well-hydrated, well nourished.. Skin: Skin color, texture, turgor normal, no suspicious rashes or lesions. Lungs: Lungs clear to auscultation. No wheezing, rhonchi, rales.. Heart: RRR without murmur Abdomen: Normal abdominal exam, Abdomen soft, non-tender. No masses, organomegaly. Lymph Nodes: No cervical lymphadenopathy, No supraclavicular lymphadenopathy and No axillary lymphadenopathy.. Breast: Left breast with mild asymmetry--decrease size compared to right No fibrosis or erythema evidence. No suspicious or dominant nodularity. Posttreatment skin change inframammary crease notable Right breast without dominant nodularity or skin changes. Impression: Breast cancer, left, DCIS UIQ, pathologic stage 0 [id number], ER-positive and NV-positive, s/p partial mastectomy, status post left breast radiation completed March 2021. Overall doing well without evidence of recurrence. No significant post treatment related problems. Recommend follow-up in 1 year when she is due for annual mammography. Signed by: Fauzia Silva MD cc: Yesica Mcguire MD ([facility]) [address] [place] [phone] [facility] 09-15-2023 Evaluation note Encounter Date Diagnosis Assessment Notes Aug, Well adult exam (ICD-10 - Z00.00) We have discussed the necessity of following up with PCP regularly as well as specialists, as needed. Discussed F/U with dentistry and optometry at least yearly. Discussed all preventative measures/ cancer screenings as applicable to this patient. Emphasized the importance of a reduced fat, low carb diet to promote heart health and controlled blood sugars. Reviewed social history and ensured patient is safe within the home today. Pt denies any abuse of alcohol, nicotine, caffeine or recreational drugs. I have ensured patient is of stable mental and physical health today. We have discussed appropriate F/U schedule as well as blood work and vaccinations that apply. All questions answered and patient is sent home pleased, without concerns. Aug, Chronic GERD (ICD-10 - K21.9) Reflux symptoms are unchanged. We discussed the importance of meal content, avoiding overeating, and not eating meals late at night and before bedtime. Medication is helpful for patient. No nocturnal reflux symptoms. Continue present medication Charitas Other [id number] History of Present illness Narrative* Stephanie Grove, OD - 07/30/2023 4:00 PM EDT ASSESSMENT/PLAN: 1. Encounter for long-term (current) use of high-risk medication - ICD9: V58.69, ICD10: Z79.899 Tamoxifen at standard dosing 20mg/day x 30 months with plan for total of 5 yrs (60 months) of treatment Low risk for toxicity, mac crystalline deposits, and macular edema Pt has stable diffusely thinner (Symmetrical) macula since baseline OCT in 2020 Historically, Retinal toxicity is more common in higher dose Tamoxifen > 1 yr and cumulative dosing > 100grams Pt's total expected cumulative dose (20mg/day x 5 yrs => 37grams) pt's current cumulative dose is ~18 grams OK to continue Tamoxifen treatment without changes Pt reports her Oncologist has no reservations or even previously known precautions with Tamoxifen and Ocular toxicity 2. Combined forms of age-related cataract of both eyes - ICD9: 366.19, ICD10: H25.813 Pt ed re future Cat evaluation 3. Hyperopia with astigmatism and presbyopia, bilateral - ICD9: 367.0, 367.20, 367.4, ICD10: H52.03, H52.203, H52.4 Update spec rx for back-ups per pt request ??Mild amblyopia OS Pt reports history of OD always being her 'better eye' and the Left spec lens was always much thicker in her glasses growing up 4. Anatomical narrow angle, bilateral - ICD9: 365.02, ICD10: H40.033 5. History of bilateral YAG laser iridotomy - ICD9: V45.69, ICD10: Z98.890 Large Patent pi's Pt is not a risk for closure due to dilation I have confirmed and edited as necessary the relevant ophthalmic history, ROS, and the exam findings as obtained by others. I have seen and examined this patient. I also have reviewed and agree with the assessment and plan as stated above and agree with all of its relevant components. Stephanie Grove, OD July 30, 2023 4:16 PM documented in this encounterHigh[facility]09-[facility]23 Instructions* Patient Instructions* Andrea Miller MD - 06/30/2023 11:32 AM EDT RTC with me in 12 months with labs and exam same day. Schedule Mammograms for November 2023 (Dr. Silva ordered) Continue Tamoxifen through 03/2026 documented in this encounterHigh[facility]09-[facility]23 History of Present illness Narrative* Andrea Miller MD - 06/30/2023 11:13 AM EDT Images from the original note were not included. NAME: Pranav Kemp CLINIC NO.: [id number] DATE OF SERVICE: July 02, 2023 (Ester) Some elements in this clinic note that are critical to medical decision making have been carefully reviewed and included from a prior clinic note dated: December 23, 2022 (Ester) Referring Provider: Jevon Patterson Additional Clinicians involved in Pranav Kemp's care: Dr. Silva, Carolina Cope CC: Follow-up for breast cancer. 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 Initial diagnosis 2020-11-25, left breast lumpectomy 2020-12-25. ER/NV both strongly positive grade 2, cribriform pattern. She has completed radiation and is on hormone suppression. PLAN: RTC with me in 12 months with labs and exam same day. Schedule Mammograms for November 2023 (Dr. Silva ordered) Continue Tamoxifen through 03/2026 TREATMENT TO DATE: 3. 04/02/2021 - current: Tamoxifen anticipated for 5 years. 2. 02/24/2021-03/25/2021: Left breast radiation 4256 cGy in 16 fractions with boost of 1000 cGy in 4. 1. 01/21/2021: Left breast lumpectomy. HPI: Updated Visit, June 30, 2023: Pranav returns with Cash - grand-kids (adoptive) are having major issues creating stress for the family. She is otherwise doing well and tolerating tamoxifen. Labs reviewed and are without any clinically significant abnormalities. Updated Visit, December 23, 2022: 12/16/2022 Mammogram : Cat 2 - benign. June 2022 - Cholecystectomy Labs stable No other issues - Dr. Silva examined her today and will see her in 1 year. Cash accompanying her. Sees her ophthalmology end of the month. Updated Visit, May 22, 2022: Continues to do very well with tolerance to Tamoxifen. Rash on abdomen - pale and slightly pinkish. She states she gets these often. And right forearm Mammography from November noted to be benign. Updated Visit, November 13, 2021: Pranav returns with her Cash, she is doing well on current chemoprevention endocrine therapywith tolerable AE's. Mammogram of left breast will be due in 1 month., She is concerned with Tamoxifen and ophthalmologic changes which Dr. Cope is evaluating. Updated Visit, August 14, 2021: Pranav returns with her Cash for left breast DCIS. In May she had her left diagnostic mammogram which was diagnostic category 3 with changes likely consistent with postsurgical and radiation changes. The recommended follow up mammogram in 6 months. Chaperoned Breast Exam showed typical radiation changes on left. Right breast is normal. Aside from occasional hot flashes, she is tolerating tamoxifen well. Updated Visit, May 14, 2021: Neris is 65 years old and returns specimen Cash for follow-up on tamoxifen in the adjuvant setting for DCIS. She still has some irritation in her left axilla and also has intermittent arthralgias butonly last a day or 2. She is otherwise without complaints. She very kindly brought in some of her famous chocolate chip oatmeal cookies. Updated Visit, April 02, 2021: Pranav returns after completing RT on 03/25/2021 for left breast DCIS s/p resection 12/25/2020. We discussed adjuvant endocrine therapy with regards to AI or SERM. She will start on Tamoxifen. History of varicose veins - discussed potential for DVT's. Discussed risk of uterine Ca but she has had a hysterectomy. Initial Visit, February 05, 2021: Pranav Kemp presents today Hematology and Oncology evaluation. She is a 65 year old female who ishere with Cash for a recent diagnosis and resection of a left breast DCIS with lumpectomy. Found left breast mass on routine mammographyof health screening. In October 2020. On 2020-11-19 she underwent a left diagnostic digital mammogram and ultrasound. This was followed by an ultrasound guided biopsy of the left breast on 2020-11-25. Pathology reported a complex papillary lesion with foci of ductal carcinoma in situ, cribriform type, nuclear grade 2 ER and NV both greater than 95%. She then underwent 2020-12-25 left breast lumpectomy of 11 o'clock position and 7 o'clock position as well as excision of inclusion cyst mid chest. Axillary nodes were unable to be found through tracer studies. Final diagnosis primary tumor pTis (DCIS). Margins were negative. Left breast lesion at 11 o'clock position consistent with residual complex papillary lesion with small foci of ductal carcinoma in situ, cribriform pattern, nuclear grade 2. Left breast lesion 7 o'clock position excision consistent with breast current parenchyma with usual ductal hyperplasia scleros ing adenosis. She developed a seroma post procedurally following her ultrasound-guided biopsy. This is notable onexam and is yet to resolve. She has been referred for medical oncology opinion and ongoing follow-up as well as radiation oncology for consolidation. She will need adjuvant hormone suppression. REVIEW OF SYSTEMS Per HPI and otherwise negative by full review of organ systems. ECOG PERFORMANCE STATUS: 0 PHYSICAL EXAMINATION: Vitals: BP 164/50 Pulse 82 Temp (Src) 97 (Temporal) Resp 16 Ht 5' 5.984 (1.68m) Wt 176 lb 9.6 oz (80.1kg) SpO2 98% BMI 28.52 kg/(m^2). Body surface area is 1.93 meters squared. Exam limited to gross visualization where appropriate. Gen.: This is an age-appropriate patient in no acute distress. Head: Appears atraumatic with no visible lesions. Eyes: Pupils equally round and reactive to light, extraocular muscles are intact. Neck: Supple. Respiratory: Appears to be respiring comfortably. Neurologic: Nonfocal to gross visualization. Alert and oriented 3. Psychiatric: No evidence of inappropriate anxiety or depression. Skin: Visible areas of skin without rash, lesions, wounds or petechiae. Chaperoned breast examination (Inez): bilateral pendulous female breasts - left with unchanged inverted nipple following the surgery with further contraction consistent with post radiation skin changes and hilton. otherwise benign exam. Right breast is without abnormalities. ALLERGIES: ALLERGIES Allergen Reactions Acetaminophen-Codei* Rash, Hives Berries Rash Ciprofibrate Unknown Ciprofloxacin Hives Codeine Unknown Grape GI Upset Keflex [Cephalexin] Hives, Itching Kenalog-H Other: See Comments Blood clots Latex Hives Montelukast Unknown Mushroom Rash Naproxen Mental Status Change Neomycin-Bacitracin* Unknown Novacaine [Procaine] Mental Status Change Peanuts Mental Status Change Shellfish Derived Mental Status Change Strawberries Rash Sulfa (Sulfonamide * Rash, Hives Tree Nut Mental Status Change Triamcinolone Unknown MEDICATIONS: tamoxifen (NOLVADEX) 20 mg tablet Take 1 tablet (20 mg) by mouth once daily. pantoprazole DR (PROTONIX) 40 mg tablet Take 1 tablet by mouth once daily. acetaminophen (TYLENOL) 325 mg tablet Take 2 tablets by mouth every 6 hours as needed for pain. losartan (COZAAR) 25 mg tablet Take 25 mg by mouth once daily. loratadine (CLARITIN ORAL) Take by mouth. albuterol HFA (PROVENTIL HFA, VENTOLIN HFA) 90 mcg/actuation inhaler Inhale as instructed. LABORATORY VALUES: WBC (k/uL) Date Value 06/30/2023 5.09 RBC (m/uL) Date Value 06/30/2023 4.18 Hemoglobin (g/dL) Date Value 06/30/2023 13.0 Hematocrit (%) Date Value 06/30/2023 39.5 MCV (fL) Date Value 06/30/2023 94.5 MCH (pg) Date Value 06/30/2023 31.1 MCHC (g/dL) Date Value 06/30/2023 32.9 RDW-CV (%) Date Value 06/30/2023 12.6 Platelet Count (k/uL) Date Value 06/30/2023 271 MPV (fL) Date Value 06/30/2023 8.9 (L) Glucose (mg/dL) Date Value 06/30/2023 134 (H) BUN (mg/dL) Date Value 06/30/2023 8 Creatinine (mg/dL) Date Value 06/30/2023 0.85 Sodium (mmol/L) Date Value 06/30/2023 145 (H) Potassium (mmol/L) Date Value 06/30/2023 3.8 Chloride (mmol/L) Date Value 06/30/2023 109 (H) CO2 (mmol/L) Date Value 06/30/2023 26 Protein, Total (g/dL) Date Value 06/30/2023 6.6 Albumin (g/dL) Date Value 06/30/2023 3.9 Calcium, Total (mg/dL) Date Value 06/30/2023 8.9 Alkaline Phosphatase (U/L) Date Value 06/30/2023 60 Bilirubin, Total (mg/dL) Date Value 06/30/2023 0.3 AST (U/L) Date Value 06/30/2023 21 ALT (U/L) Date Value 06/30/2023 20 DIAGNOSIS: (D05.12) Ductal carcinoma in situ (DCIS) of left breast (primary encounter diagnosis) Plan: CBC + DIFF, COMP METABOLIC PANEL PAST MEDICAL HISTORY Diagnosis Date Asthma DCIS (ductal carcinoma in situ) 2020 Varicose veins of both lower extremities PAST SURGICAL HISTORY Procedure Laterality Date BREAST LUMPECTOMY HX Left 2020 HYSTERECTOMY HX 1989 L'SCOPE CHOLECYSTECTOMY 07/03/2022 LAPS SURG CHOLECYSTECTOMY W/CHOLANGIOGRAPHY 07/02/2022 PAST SURGICAL HISTORY OF Bilateral 06/10/2012 Laser iridotomy REPAIR ELBOW FRACTURE VEIN SURGERY (SPECIFY LOCATION) HX Dr. John Das Social History Tobacco Use Smoking status: Former Types: Cigarettes Quit date: 06/03/1986 Years since quittin.1 Passive exposure: Past Smokeless tobacco: Never Substance Use Topics Alcohol use: Not Currently Drug use: No FAMILY HISTORY Problem Relation Age of Onset Alzheimer's Disease Mother Cataract Father Glaucoma Father other (esophageal cancer) Father other (stomach cancer) Father I spent a total of 30 minutes on the date of the service which included preparing to see the patient, [id number] patient care, completing clinical documentation, obtaining and/or reviewing separately obtained history, performing a medically appropriate examination, counseling and educating the pat ient/family/caregiver and ordering medications, tests, or procedures. Andrea Miller MD, CPE Hematology and Oncology Services Provided at: [place], [place] CC: Jevon Patterson MD ([facility]) [address] [facility] [phone] Yesica Mcguire MD [address] [facility] [phone] documented in this encounterHigh[facility]09-06-2023 Nurse Note* Amy Fernandez MA - 06/30/2023 11:09 AM EDT Patient states she does have intermittent cramping in ankles. She states that she read that it could be a side effect. Amy Merchant MA documented in this encounterHigh[facility]02-21-2023 Instructions* Patient Instructions* Lashell Peña MD - 12/15/2022 11:16 AM EST What is GERD? Gastroesophageal reflux disease (GERD) is a more serious form of gastroesophageal reflux (CLIVE), which is common. CLIVE occurs when the lower esophageal sphincter (LES) opens spontaneously, for varying periods of time, or does not close properly and stomach contents rise up into the esophagus. CLIVE is also called acid reflux or acid regurgitation, because digestive juices--called acids--rise up with the food. The esophagus is the tube that carries food from the mouth to the stomach. The LES is a ring of muscle at the bottom of the esophagus that acts like a valve between the esophagus and stomach. When acid reflux occurs, food or fluid can be tasted in the back of the mouth. When refluxed stomach acid touches the lining of the esophagus it may cause a burning sensation in the chest or throat called heartburn or acid indigestion. Occasional CLIVE is common and does not necessarily mean one has GERD. Persistent reflux that occurs more than twice a week is considered GERD, and it can eventuallylead to more serious health problems. People of all ages can have GERD. What are the symptoms of GERD? The main symptom of GERD in adults is frequent heartburn, also called acid indigestion--burning-type pain in the lower part of the mid-chest, behind the breast bone, and in the mid-abdomen. Most children under 12 years with GERD, and some adults, have GERD without heartburn. Instead, they may experience a dry cough, asthma symptoms, or trouble swallowing. What causes GERD? The reason some people develop GERD is still unclear. However, research shows that in people with GERD, the LES relaxes while the rest of the esophagus is working. Anatomical abnormalities such as a hiatal hernia may also contribute to GERD. A hiatal hernia occurs when the upper part of the stomachand the LES move above the diaphragm, the muscle wall that separates the stomach from the chest. Normally, the diaphragm helps the LES keep acid from rising up into the esophagus. When a hiatal hernia is present, acid reflux can occur more easily. A hiatal hernia can occur in people of any age and is most often a normal finding in otherwise healthy people over age 50. Most of the time, a hiatal hernia produces no symptoms. Other factors that may contribute to GERD include obesity smoking Common foods that can worsen reflux symptoms include citrus fruits chocolate drinks with caffeine or alcohol fatty and fried foods garlic and onions mint flavorings spicy foods tomato-based foods, like spaghetti sauce, salsa, chili, and pizza What is GERD in children? Distinguishing between normal, physiologic reflux and GERD in children is important. Most infants with CLIVE are happy and healthy even if they frequently spit up or vomit, and babies usually outgrow CLIVE by their first birthday. Reflux that continues past 1 year of age may be GERD. Studies show GERD is common and may be overlooked in infants and children. For example, GERD can present as repeated regurgitation, nausea, heartburn, coughing, laryngitis, or respiratory problems like wheezing, asthma, or pneumonia. Infants and young children may demonstrate irritability or arching of the back, often during or immediately after feedings. Infants with GERD may refuse to feed and experience poor growth. Talk with your child s health care provider if reflux-related symptoms occur regularly and cause your child discomfort. Your health care provider may recommend simple strategies for avoiding reflux, such as burping the several times during feeding or keeping the infant in an upright positionfor 30 minutes after feeding. If your child is older, your health care provider may recommend that your child eat small, frequent meals and avoid the following foods: sodas that contain caffeine chocolate peppermint spicy foods acidic foods like oranges, tomatoes, and pizza fried and fatty foods Avoiding food 2 to 3 hours before bed may also help. Your health care provider may recommend raising the head of your child s bed with wood blocks secured under the bedposts. Just using extra pillowswill not help. If these changes do not work, your health care provider may prescribe medicine for your child. In rare cases, a child may need surgery. For information about CLIVE in infants, children, and adolescents, see the Gastroesophageal Reflux in Infants and Gastroesophageal Reflux in Children and Adolescents fact sheets from the National [place] [employer] and Digestive and Kidney Diseases (NIDDK). How is GERD treated? See your health care provider if you have had symptoms of GERD and have been using antacids or other nhmj-kkd-erlfqai reflux medications for more than 2 weeks. Your health care provider may refer youto a studio owner, a doctor who treats diseases of the stomach and intestines. Depending on the severity of your GERD, treatment may involve one or more of the following lifestyle changes, medications, or surgery. Lifestyle Changes If you smoke, stop. Avoid foods and beverages that worsen symptoms. Lose weight if needed. Eat small, frequent meals. Wear loose-fitting clothes. Avoid lying down for 3 hours after a meal. Raise the head of your bed 6 to 8 inches by securing wood blocks under the bedposts. Just using extra pillows will not help. Medications Your health care provider may recommend bggj-kgm-pcrzpgw antacids or medications that stop acid production or help the muscles that empty your stomach. You can buy many of these medications without aprescription. However, see your health care provider before starting or adding a medication. Antacids, such as Pamella-Ingleside, Maalox, Mylanta, Rolaids, and Riopan, are usually the first drugs recommended to relieve heartburn and other mild GERD symptoms. Many brands on the market use different combinations of three basic salts--magnesium, calcium, and aluminum--with hydroxide or bicarbonateions to neutralize the acid in your stomach. Antacids, however, can have side effects. Magnesium salt can lead to diarrhea, and aluminum salt may cause constipation. Aluminum and magnesium salts are often combined in a single product to balance these effects. Calcium carbonate antacids, such as Tums, Titralac, and Pamella-2, can also be a supplemental source of calcium. They can cause constipation as well. Foaming agents, such as Gaviscon, work by covering your stomach contents with foam to prevent reflux. H2 blockers, such as cimetidine (Tagamet HB), famotidine (Pepcid AC), nizatidine (Axid AR), and ranitidine (Zantac 75), decrease acid production. They are available in prescription strength and voyu-pug-efabqrr strength. These drugs provide short-term relief and are effective for about half of those who have GERD symptoms. Proton pump inhibitors include omeprazole (Prilosec, Zegerid), lansoprazole (Prevacid), pantoprazole (Protonix), rabeprazole (Aciphex), and esomeprazole (Nexium), which are available by prescription.Prilosec is also available in bctr-zaq-ybpasso strength. Proton pump inhibitors are more effective than H2 blockers and can relieve symptoms and heal the esophageal lining in almost everyone who has GERD. Prokinetics help strengthen the LES and make the stomach empty faster. This group includes bethanechol (Urecholine) and metoclopramide (Reglan). Metoclopramide also improves muscle action in the digestive tract. Prokinetics have frequent side effects that limit their usefulness--fatigue, sleepiness, depression, anxiety, and problems with physical movement. Because drugs work in different ways, combinations of medications may help control symptoms. Peoplewho get heartburn after eating may take both antacids and H2 blockers. The antacids work first to neutralize the acid in the stomach, and then the H2 blockers act on acid production. By the time the antacid stops working, the H2 luda will have stopped acid production. Your health care provider is the best source of information about how to use medications for GERD. What if GERD symptoms persist? If your symptoms do not improve with lifestyle changes or medications, you may need additional tests. Barium swallow radiograph uses x rays to help spot abnormalities such as a hiatal hernia and other structural or anatomical problems of the esophagus. With this test, you drink a solution and then x rays are taken. The test will not detect mild irritation, although strictures--narrowing of the esophagus--and ulcers can be observed. Upper endoscopy is more accurate than a barium swallow radiograph and may be performed in a hospital or a doctor s office. The doctor may spray your throat to numb it and then, after lightly sedatingyou, will slide a thin, flexible plastic tube with a light and lens on the end called an endoscope down your throat. Acting as a tiny camera, the endoscope allows the doctor to see the surface of theesophagus and search for abnormalities. If you have had moderate to severe symptoms and this procedure reveals injury to the esophagus, usually no other tests are needed to confirm GERD. The doctor also may perform a biopsy. Tiny tweezers, called forceps, are passed through the endoscope and allow the doctor to remove small pieces of tissue from your esophagus. The tissue is then viewed with a microscope to look for damage caused by acid reflux and to rule out other problems if infection or abnormal growths are not found. pH monitoring examination involves the doctor either inserting a small tube into the esophagus or clipping a tiny device to the esophagus that will stay there for 24 to 48 hours. While you go about your normal activities, the device measures when and how much acid comes up into your esophagus. Thistest can be useful if combined with a carefully completed diary--recording when, what, and amounts the person eats--which allows the doctor to see correlations between symptoms and reflux episodes. The procedure is sometimes helpful in detecting whether respiratory symptoms, including wheezing and coughing, are triggered by reflux. A completely accurate diagnostic test for GERD does not exist, and tests have not consistently shown that acid exposure to the lower esophagus directly correlates with damage to the lining. Surgery Surgery is an option when medicine and lifestyle changes do not help to manage GERD symptoms. Surgery may also be a reasonable alternative to a lifetime of drugs and discomfort. Fundoplication is the standard surgical treatment for GERD. Usually a specific type of this procedure, called Brandy fundoplication, is performed. During the Brandy fundoplication, the upper part of the stomach is wrapped around the LES to strengthen the sphincter, prevent acid reflux, and repair ahiatal hernia. The Brandy fundoplication may be performed using a laparoscope, an instrument that is inserted through tiny incisions in the abdomen. The doctor then uses small instruments that hold a camera to lookat the abdomen and pelvis. When performed by experienced surgeons, laparoscopic fundoplication is safe and effective in people of all ages, including infants. The procedure is reported to have the same results as the standard fundoplication, and people can leave the hospital in 1 to 3 days and return to work in 2 to 3 weeks. Endoscopic techniques used to treat chronic heartburn include the Bard EndoCinch system, NDO Plicator, and the Stretta system. These techniques require the use of an endoscope to perform the anti-reflux operation. The EndoCinch and NDO Plicator systems involve putting stitches in the LES to create pleats that help strengthen the muscle. The Stretta system uses electrodes to create tiny mccarthy on the LES. When the mccartyh heal, the scar tissue helps toughen the muscle. The correction effects of thesethree procedures are unknown. What are the long-term complications of GERD? Chronic GERD that is untreated can cause serious complications. Inflammation of the esophagus from refluxed stomach acid can damage the lining and cause bleeding or ulcers--also called esophagitis. Scars from tissue damage can lead to strictures--narrowing of the esophagus--that make swallowing difficult. Some people develop Martin s esophagus, in which cells in the esophageal lining take on an abnormal shape and color. Over time, the cells can lead to esophageal cancer, which is often fatal. Persons with GERD and its complications should be monitored closely by a physician. Studies have shown that GERD may worsen or contribute to asthma, chronic cough, and pulmonary fibrosis. For information about Martin s esophagus, see the Martin s Esophagus fact sheet from the NIDDK. Points to Remember Frequent heartburn, also called acid indigestion, is the most common symptom of GERD in adults. Anyone experiencing heartburn twice a week or more may have GERD. You can have GERD without having heartburn. Your symptoms could include a dry cough, asthma symptoms, or trouble swallowing. If you have been using antacids for more than 2 weeks, it is time to see your health care provider.Most doctors can treat GERD. Your health care provider may refer you to a studio owner, a doctor who treats diseases of the stomach and intestines. Health care providers usually recommend lifestyle and dietary changes to relieve symptoms of GERD. Many people with GERD also need medication. Surgery may be considered as a treatment option. Most infants with CLIVE are healthy even though they may frequently spit up or vomit. Most infants outgrow CLIVE by their first birthday. Reflux that continues past 1 year of age may be GERD. The persistence of CLIVE along with other symptoms--arching and irritability in infants, or abdominaland chest pain in older children--is GERD. GERD is the outcome of frequent and persistent CLIVE in infants and children and may cause repeated vomiting, coughing, and respiratory problems. Hope Through Research The reasons certain people develop GERD and others do not remain unknown. Several factors may be involved, and research is under way to explore risk factors for developing GERD and the role of GERD in other conditions such as asthma and laryngitis. The U.S. Government does not endorse or favor any specific commercial product or company. Trade, proprietary, or company names appearing in this document are used only because they are considered necessary in the context of the information provided. If a product is not mentioned, the omission does not mean or imply that the product is unsatisfactory. For More Information [employer] [address] [place] [address] Internet: www.acg.gi.org [employer] National Office [address] [place] [address] Email: Internet: www.gastro.org [employer]astrointestinal [employer] [address] [place] [address] Phone: or [phone] Email: Internet: www.aboutgerd.org [employer] Hepatology, [employer] [address] [place] [address] Email: Internet: www.naspghan.org Pediatric/Adolescent Gastroesophageal [employer]lux [employer] [address] [place] [address] Email: [email or web address] Internet: www.reflux.org The National Digestive Diseases Information Clearinghouse collects resource information about digestive diseases for the National [place] of Diabetes and Digestive and Kidney Diseases (NIDDK) Reference Collection. This database provides titles, abstracts, and availability information for health information and health education resources. The NIDDK Reference Collection is a service of the National Institutes of Health. You may view the results of the automatic search on heartburn, gastroesophageal reflux (CLIVE), and gastroesophageal reflux disease (GERD). If you wish to perform your own search of the database, you may access and search the NIDDK Reference Collection database online. National Digestive Diseases Information Clearinghouse [address] [place] [address] Phone: Email: Internet: www.digestive.niddk.nih.gov The National Digestive Diseases Information Clearinghouse (NDDIC) is a service of the National [place] of Diabetes and Digestive and Kidney Diseases (NIDDK). The NIDDK is part of the National Institutes of Health of the U.S. Department of Health and Human Services. Established in 1979, the Clearinghouse provides information about digestive diseases to people with digestive disorders and to their families, health team primary care physician, and the public. The NDDIC answers inquiries, develops and distributes publications, and works closely with professional and patient organizations and Government agencies to coordinate resources about digestive diseases. Publications produced by the [employer] are carefully reviewed by both NIDDK scientists and outside experts. This publication was originally reviewed by Jayden Freeman M.D., [facility] [employer], and Mark Anglin M.D., [employer]. This publication is not copyrighted. The [employer] encourages users of this publication to duplicate and distribute as many copies as desired. [facility] Publication No. [id number] February 2007 documented in this encounterHighland District Hospital02-21-2023 History of Present illness Narrative* Lashell Peña MD - 12/15/2022 11:00 AM EST Consultation requested by Dr. Mcguire for an opinion regarding post ERCP and GERD. My final recommendations will be communicated back to the requesting physician by way of shared medical record or letter via US mail HPI: Pranav Kemp, 67 year old female, presents in the office today for follow-up after ERCP and for GERD. The patient had ERCP for biliary stone extraction. She had a covered metal stent placed in whichmigrated distally uneventfully. X-ray of the abdomen did not show evidence of the stent. Patient has been doing well since then. In addition she has reflux for which she takes pantoprazole 40 mg daily which controls her heartburn very well. No other symptoms. Doing well. Previous Workup: 09-09-2022 EGD Impression - Small hiatal hernia. - Normal stomach. - Normal examined duodenum. - No specimens collected 09-09-2022 ERCP Impression - Prior biliary sphincterotomy appeared open. - No biliary stent seen. Covered metal stent has migrated distally. Fluoroscopic exam did not show the stent in the abdomen. - The biliary tree was swept and nothing was found. 09-09-2022 XR 1V Abdomen IMPRESSION: NONOBSTRUCTIVE BOWEL GAS PATTERN ----- Message from Lashell Peña MD sent at 09/10/2022 8:19 AM EST ----- Abdomen xray did not show any stent within the abdomen. The biliary tent has migrated and got excreted from GI tract. Please call patient and confirms that to her. She is doing well. ERCP was normal yesterday. No needfor anything else. If she is constipated (+ fecal loading on xray) she may use stool softner. Component Latest Ref Rng & Units 07/04/2022 Protein, Total 6.3 - 8.0 g/dL 5.5 (L) Albumin 3.9 - 4.9 g/dL 3.0 (L) Calcium 8.5 - 10.2 mg/dL 8.1 (L) Bilirubin, Total 0.2 - 1.3 mg/dL 0.4 Alkaline Phosphatase 34 - 123 U/L 60 AST 13 - 35 U/L 24 ALT 7 - 38 U/L 56 (H) Glucose 74 - 99 mg/dL 90 BUN 7 - 21 mg/dL 9 Creatinine 0.58 - 0.96 mg/dL 0.91 Sodium 136 - 144 mmol/L 142 Potassium 3.7 - 5.1 mmol/L 3.4 (L) Chloride 97 - 105 mmol/L 108 (H) CO2 22 - 30 mmol/L 25 Anion Gap 9 - 18 mmol/L 9 eGFR >=60 mL/min/1.73m 69 WBC 3.70 - 11.00 k/uL 6.24 RBC 3.90 - 5.20 m/uL 3.46 (L) Hemoglobin 11.5 - 15.5 g/dL 11.1 (L) Hematocrit 36.0 - 46.0 % 33.5 (L) MCV 80.0 - 100.0 fL 96.8 MCH 26.0 - 34.0 pg 32.1 MCHC 30.5 - 36.0 g/dL 33.1 RDW-CV 11.5 - 15.0 % 12.7 Platelet Count 150 - 400 k/uL 200 MPV 9.0 - 12.7 fL 8.9 (L) Absolute nRBC <0.01 k/uL <0.01 Current Medications: Current Outpatient Medications Medication Sig pantoprazole DR (PROTONIX) 40 mg tablet Take 1 tablet by mouth once daily. acetaminophen (TYLENOL) 325 mg tablet Take 2 tablets by mouth every 6 hours as needed for pain. tamoxifen (NOLVADEX) 20 mg tablet Take 1 tablet (20 mg) by mouth once daily. tamoxifen (NOLVADEX) 20 mg tablet Take 1 tablet (20 mg) by mouth once daily. losartan (COZAAR) 25 mg tablet Take 25 mg by mouth once daily. loratadine (CLARITIN ORAL) Take by mouth. albuterol HFA (PROVENTIL HFA, VENTOLIN HFA) 90 mcg/actuation inhaler Inhale as instructed. No current facility-administered medications for this visit. Past Medical History: PAST MEDICAL HISTORY Diagnosis Date Asthma DCIS (ductal carcinoma in situ) 2020 Varicose veins of both lower extremities Surgical History: PAST SURGICAL HISTORY Procedure Laterality Date BREAST LUMPECTOMY HX Left 2020 HYSTERECTOMY HX 1989 L'SCOPE CHOLECYSTECTOMY 07/03/2022 LAPS SURG CHOLECYSTECTOMY W/CHOLANGIOGRAPHY 07/02/2022 PAST SURGICAL HISTORY OF Bilateral 06/10/2012 Laser iridotomy REPAIR ELBOW FRACTURE VEIN SURGERY (SPECIFY LOCATION) HX Dr. John Das Family History: FAMILY HISTORY Problem Relation Age of Onset Alzheimer's Disease Mother Cataract Father Glaucoma Father other (esophageal cancer) Father other (stomach cancer) Father Social History: Social History Tobacco Use Smoking status: Former Types: Cigarettes Quit date: 06/03/1986 Years since quittin.5 Smokeless tobacco: Never Substance Use Topics Alcohol use: Not Currently Comment: Socially Drug use: No Allergies: ALLERGIES Allergen Reactions Acetaminophen-Codei* Rash, Hives Berries Rash Ciprofibrate Unknown Ciprofloxacin Hives Codeine Unknown Grape GI Upset Keflex [Cephalexin] Hives, Itching Kenalog-H Other: See Comments Blood clots Latex Hives Montelukast Unknown Mushroom Rash Naproxen Mental Status Change Neomycin-Bacitracin* Unknown Novacaine [Procaine] Mental Status Change Peanuts Mental Status Change Shellfish Derived Mental Status Change Strawberries Rash Sulfa (Sulfonamide * Rash, Hives Tree Nut Mental Status Change Triamcinolone Unknown REVIEW OF SYSTEMS: GENERAL: No weight loss, malaise or fevers HEENT: Negative for frequent or significant headaches RESPIRATORY: Negative for cough or SOB CARDIOVASCULAR: No chest pain, SOB or paplitations GI: As in HPI SKIN: No rash MSK: No arthralgias PHYSICAL EXAMINATION: BP 158/61 (BP Site: Right Arm, BP Position: Sitting) Pulse 74 Temp 36.3 C (97.3 F) Ht 167.6 cm (5' 6 ) Wt 83 kg (183 lb) SpO2 100% BMI 29.54 kg/m General appearance: Well appearing, alert, in no acute distress, well-hydrated, well nourished Skin: Skin color, texture, turgor normal Head: Normocephalic Eyes: Anicteric sclera Oropharynx: Lips, mucosa, and tongue normal, teeth and gums normal, oropharynx normal Neck: Supple, no adenopathy; no thyroid enlargement Lungs: Unlabored breathing Heart: RRR Abdomen: Normal abdominal exam, Abdomen soft, non-tender. No masses, organomegaly ASSESSMENT: -Post ERCP for biliary stone extraction. Uneventful. Stent migrated out. Doing well without issues. -GERD without esophagitis. Continue pantoprazole 40 mg daily. Can wean that down to as needed or every other day. Discussed with the patient. Gave her handout for reflux lifestyle modifications. PLAN: as above RTC: 6 months or as needed I spent a total of 25 minutes on the date of the service which included preparing to see the patient, [id number] patient care, completing clinical documentation, obtaining and/or reviewing separately obtained history, performing a medically appropriate examination, counseling and educating the pat ient/family/caregiver and ordering medications, tests, or procedures. Lashell Peña MD Staff Clinical Education Consultant [facility] [place] documented in this encounterHighland [facility] Hospital02-21-2023 Nurse Note* Leigh Horta MA - 12/15/2022 10:41 AM EST What is the reason for your visit today? Established patient presents for 3 month follow up. Who is your referring physician? Are you having poor oral intake? NO Have you had unintentional weight loss of 15 lbs/7 Kg in the last 3-6 months? NO Bowels: regular Wound: n/a Temperature: No Drains: No documented in this encounterHighland District Hospital11-21-2022 Miscellaneous Notes* Telephone Encounter - Olimpia Jurado LPN - 09/14/2022 12:49 PM EST Patient requesting refill on Pantoprazole. Medication needs to be sent to the patients mail order pharmacy. Per insurance company. Requested Prescriptions Pending Prescriptions Disp Refills pantoprazole DR (PROTONIX) 40 mg tablet 30 tablet 2 Sig: Take 1 tablet by mouth once daily. Please approve the above prescription(s) to electronically send to pharmacy. Olimpia Jurado LPN documented in this encounterHighland District Hospital11-17-2022 Miscellaneous Notes* Telephone Encounter - Natasha Alvarez RN - 09/10/2022 8:26 AM EST Spoke with pt. Advised of results and recommendations * Telephone Encounter - Natasha Alvarez RN - 09/10/2022 8:24 AM EST ----- Message from Lashell Peña MD sent at 09/10/2022 8:19 AM EST ----- Abdomen xray did not show any stent within the abdomen. The biliary tent has migrated and got excreted from GI tract. Please call patient and confirms that to her. She is doing well. ERCP was normal yesterday. No needfor anything else. If she is constipated (+ fecal loading on xray) she may use stool softner. * Telephone Encounter - Natasha Alvarez RN - 09/09/2022 1:34 PM EST ----- Message from Lashell Peña MD sent at 09/09/2022 1:20 PM EST ----- OV in 3 months please. documented in this encounterHighland District Hospital11-16-2022 NoteHNO ID: [id number] Author: Cecilia Llamas RN Service: ? Author Type: Registered Nurse Type: Nursing Progress Note Filed: 09/09/2022 1:35 PM Note Text: Port stat kub [facility] History of Present illness Narrative* Breana Serna, SAXOPHONE ASSEMBLER.ACCOUNTING GENERALIST - 07/17/2022 1:40 PM EDT GENERAL SURGERY FOLLOW UP SUBJECTIVE: Pranav Kemp presents for follow up of her laparoscopic cholecystectomy with intraoperative cholangiogram on 07/03/22. She tolerated the procedure well and was discharged home the same day. Surgeon: Ilir Pathology: FINAL DIAGNOSIS A. Gallbladder, cholecystectomy: -Chronic cholecystitis. -Cholelithiasis. ERCP 07/03/22 Dr Peña Impression: - The major papilla appeared to be small. - Biliary papillary stenosis, benign. - Multiple filling defects consistent with stones were seen on the cholangiogram. - The upper third of the main bile duct and middle third of the main bile duct were moderately dilated. - Choledocholithiasis was found. Complete removal was accomplished by biliary sphincterotomy and balloon/Trapezoid basket extraction. - A biliary sphincterotomy was performed. - The biliary tree was swept. - One covered metal stent was placed into the common bile duct to treat the papillary stenosis. Patient complaints: Still with some residual soreness, differing areas on the right, improved with movement She denies abdominal pain, incisional pain, nausea, vomiting, diarrhea, fever, chills, jaundice , and dark urine She denies food intolerance, has limited her diet, hesitant to try certain foods again PHYSICAL EXAMINATION: BP 145/66 Pulse 82 Temp 36.2 C (97.2 F) (Temporal) Ht 167.6 cm (5' 6 ) Wt 83.9 kg (185 lb) BMI 29.86 kg/m General Appearance: Well developed, No acute distress Patient does not appear icteric. Abdomen: Abdomen soft, non-distended Incision: no drainage, no erythema, no swelling, no ecchymosis, and no tenderness IMPRESSION: Post op course: Normal PLAN: Post-op patient instructions were reviewed with the patient. Low fat diet encouraged. I have explained to Ms. Pranav Kemp that she may return to normal activity with the following restrictions: ease back into usual activity over the next 1-2 weeks (3-4 weeks post op). I have encouraged her to contact me at any time with any questions or concerns that may arise. Follow up: with GI (Dr Peña) for ERCP stent removal in 2 months Breana Serna APRN.ACCOUNTING GENERALIST documented in this encounterHighland District Hospital09-23-2022 Nurse Note* Gauri Suh MA - 07/17/2022 1:35 PM EDT What is the reason for your visit today? Post op Who is your referring physician? Self Are you having poor oral intake? NO Have you had unintentional weight loss of 15 lbs/7 Kg in the last 3-6 months? NO Bowels: regular Wound: clean & dry Temperature: No Drains: No documented in this encounterHighland District Hospital09-10-2022 NoteHNO ID: [id number] Author: Reyna Grissom DO Service: General Surgery Author Type: Resident Type: Progress Notes Filed: 07/04/2022 12:24 PM Note Text: Attestation signed by Gadiel Madsen MD at 07/04/2022 1:06 PM Attending Note I evaluated the patient and personally participated in the doan components. I agree with the resident's findings and plan as documented and have discussed the case and management of the patient's care with the resident. POD 2 from lap doreen, POD 1 from ERCP - recovering well. Tolerating PO intake and adequate pain control. Drain serosang and removed this morning. If patient tolerates lunch, will plan on discharge to home. 2-3 week follow up with gen surg 2 month follow up with GI (Dr. Rea) Signature: Gadiel Madsen MD Date: 07/04/2022 Time: 1:04 PM GENERAL SURGERY PROGRESS NOTE Pranav Kemp [id number] ASSESSMENT AND PLAN Pranav Kemp is a 66 year old female patient with history of history of HTN, 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 OSH labs remarkable for no leukocytosis and mild transaminitis (AST 192, ALT 191, T bili 1.7). RUQ ultrasound showing evidence of cholelithiasis and CBD dilation to 10 mm. On arrival, repeat labs demonstrated normalization of LFTs (AST 46 ALT 123, ALP 115 and T bili 0.4). Patient was taken for lap doreen with IOC (07/02) which demonstrated a filling defect in the CBD. S/p ERCP on 07/03/22 - large stones removed x4 with findings of papillary stenosis which was treated with SEMS. Recommended to repeat EGD and ERCP in 2 months. - Patient tolerated GI soft diet. - Drain removed - Stable for discharge home with PPI BID x2 months Plant of care discussed with attending. Reyna Grissom, DO PGY-1 For Nights and Weekends, please page the On-call Surgery pager: [phone] SUBJECTIVE: NAEON. VSS. Afebrile. Pain well controlled, 12/04 this AM Denies N/V + flatus OBJECTIVE: BP 141/50 Pulse 66 Temp 36.8 ?C (98.2 ?F) (Oral) Resp 16 SpO2 96% GENERAL: Alert and oriented, no acute distress HEENT: Sclera non-icteric LUNGS: Non labored breathing on RA ABDOMEN: Soft, appropriately tender, non-distended WOUND: Lap sites clean, dry and intact without erythema, induration or drainage Labs: CBC, Coags, BMP, Mg, Phos Recent Labs 07/04/22 0650 07/03/22 0616 07/02/22 0548 WBC 6.24 8.72 4.40 HB 11.1* 12.8 14.0 HCT 33.5* 38.4 41.7 PLT 200 267 238 INR -- -- 0.9 APTT -- -- 26.2 NA 142 142 144 K 3.4* 3.6* 3.5* CHLOR 108* 107* 110* CO2 25 22 27 BUN 9 8 5* CREAT 0.91 0.98* 0.80 GLUC 90 98 102* CA 8.1* 8.7 9.0 Liver Function, Amylase, AND Lipase Recent Labs 07/04/22 0650 07/03/22 0616 07/02/22 0548 TPROT 5.5* 6.2* 7.0 ALB 3.0* 3.5* 4.1 ALT 56* 85* 123* AST 24 35 46* ALKPHOS 60 82 115 TBILI 0.4 0.4 0.4 I/O past 24h: Intake/Output Summary (Last 24 hours) at 07/04/2022 0943 Last data filed at 07/04/2022 0810 Gross per 24 hour Intake 1813 ml Output 3440 ml Net -1627 ml LDA: Lines, Drains, and Airways Line Duration Peripheral 07/03/22 1502 Right Forearm 20 Gauge <1 day Drain Duration Drain/Tube 07/02/22 1522 Martin Joya Right Upper Quadrant Abdomen 1 day SURGERY/PROCEDURE: Procedure(s) and Anesthesia Type: * LAPAROSCOPIC [facility]Y [facility]09-09[facility]22 NoteHNO ID: [id number] Author: Obdulio Ji APRN.FOUNDER CEO & PRESIDENT Service: Anesthesiology Author Type: Nurse Contact Lens Technician Type: Anesthesia Procedure Notes Filed: 07/03/2022 1:51 PM Note Text: ANESTHESIOLOGY PROCEDURE NOTE Airway General Information Procedure Start Time/Medication Administration: 07/03/2022 1:41 PM Patient location during procedure: OR Timeout Performed Pre-procedure: timeout performed Consent Obtained: Yes Patient identity confirmed: arm band, care produce team member and patient Staffing FOUNDER CEO & PRESIDENT: Obdulio Ji APRN.FOUNDER CEO & PRESIDENT Performed by: MAY Indications and Patient Condition Indications for airway management: anesthesia and airway protection Preoxygenated: yes anesthesia circuit Patient position: sniffing Method: asleep Cricoid Pressure: No Manual In-Line Stabilization: No Difficult Mask: No Final Airway Details Final airway type: endotracheal airway Final Endotracheal Airway: ETT Cuffed: yes Successful intubation technique: direct laryngoscopy Endotracheal tube insertion site: oral Blade: Vannessa Blade size: #3 ETT size (mm): 7.0 Measured from: teeth Measurement (cm): 21 Placement verified by: chest auscultation and capnometry Cormack-Lehane Classification: grade I - full view of glottis Number of attempts at approach: 1 Ventilation between attempts: none Failed airway: no Unrecognized esophageal intubation: no Airway not difficult SIGNATURE: Obdulio Ji APRN.FOUNDER CEO & PRESIDENT PATIENT NAME: Pranav Kemp DATE: July 03, 2022 TIME: 1:50 PM CSN: [id number] Miscellaneous Notes* Telephone Encounter - Natasha Alvarez RN - 07/03/2022 3:[address] Rea Pended orders, please review and sign Thanks Estrellita please schedule patient. Thank you * Telephone Encounter - Natasha Alvarez RN - 07/03/2022 3:30 PM EDT ----- Message from Lashell Peña MD sent at 07/03/2022 3:22 PM EDT ----- Please schedule EGD and ERCP in 2 months (60 minutes) to remove biliary stent and follow up for esophagitis. documented in this [facility]High[facility] NoteHNO ID: [id number] Author: Clyde Hazel MD Service: General Surgery Author Type: Physician Type: Progress Notes Filed: 07/03/2022 10:44 AM Note Text: GENERAL SURGERY PROGRESS NOTE Pranav Kemp [id number] ASSESSMENT AND PLAN Pranav Kemp is a 66 year old female patient with history of history of HTN, 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 OSH labs remarkable for no leukocytosis and mild transaminitis (AST 192, ALT 191, T bili 1.7). RUQ ultrasound showing evidence of cholelithiasis and CBD dilation to 10 mm. On arrival, repeat labs demonstrated normalization of LFTs (AST 46 ALT 123, ALP 115 and T bili 0.4). Patient was taken for lap doreen with IOC (07/02) which demonstrated a filling defect in the CBD. GI consulted and plan for ERCP today. Plan Neuro/Pain: Tylenol, Oxy Cardiac: No active issues Respiratory: Encourage incentive spirometry. Minimize use of supplemental O2. FEN/GI: LR @ 75, NPO for procedure, GI consulted plan for ERCP today Renal: Strict I/Os ID: Zosyn Heme: No clinical evidence of bleeding Endo: Continue tamoxifen Prophylaxis: DVT ppx: Heparin 5000 units Sub Q BID, OOB/ambulation, SCDs Dispo: Continue RNF Discussed with Dr. Hazel Carolina Lofton MD General Surgery, PGY-2 For Nights and Weekends, please page the On-call Surgery pager: [phone] SUBJECTIVE: No acute events overnight. Pain well controlled. No nausea or vomiting. Afebrile Urine output appropriate OBJECTIVE: BP (!) 122/32 Pulse (!) 57 Temp 36.8 ?C (98.2 ?F) (Oral) Resp 18 SpO2 99% GENERAL: Alert and oriented, no acute distress HEENT: Sclera non-icteric LUNGS: Non labored breathing on RA ABDOMEN: Soft, appropriately tender, non-distended, KAYLAN SS WOUND: Lap sites clean, dry and intact without erythema, induration or drainage Labs: CBC, Coags, BMP, Mg, Phos Recent Labs 07/03/22 0616 07/02/22 0548 WBC 8.72 4.40 HB 12.8 14.0 HCT 38.4 41.7 PLT 267 238 INR -- 0.9 APTT -- 26.2 NA -- 144 K -- 3.5* CHLOR -- 110* CO2 -- 27 BUN -- 5* CREAT -- 0.80 GLUC -- 102* CA -- 9.0 Liver Function, Amylase, AND Lipase Recent Labs 07/02/22 0548 TPROT 7.0 ALB 4.1 ALT 123* AST 46* ALKPHOS 115 TBILI 0.4 I/O past 24h: Intake/Output Summary (Last 24 hours) at 07/03/2022 0817 Last data filed at 07/03/2022 0607 Gross per 24 hour Intake 1436 ml Output 3555 ml Net -2119 ml LDA: Lines, Drains, and Airways Line Duration Peripheral 07/02/22 0600 Admission to Hospital Right 1 day Drain Duration Drain/Tube 07/02/22 1522 Martin Joya Right Upper Quadrant Abdomen <1 day SURGERY/PROCEDURE: Procedure(s) and Anesthesia Type: * LAPAROSCOPIC CHOLECYSTECTOMY WITH GRAMS I saw and evaluated the patient. Discussed with the resident and agree with resident's findings and plan as documented in the resident's note. Overall doing well, plan for ERCP today due to positive filling defect on IOC. Labs looks ok, KAYLAN a bit sanguinous but minimal output. Follow labs in the am after ERCP, possible dc tomorrow. Pranav Hazel MDWorcester Recovery Center And [id number] NoteHNO ID: [id number] Author: Ivette Brandt APRN.FOUNDER CEO & PRESIDENT Service: Anesthesiology Author Type: Nurse Contact Lens Technician Type: Anesthesia Procedure Notes Filed: 07/02/2022 2:44 PM Note Text: ANESTHESIOLOGY PROCEDURE NOTE Airway General Information Procedure Start Time/Medication Administration: 07/02/2022 2:30 PM Patient location during procedure: OR Patient identity confirmed: arm band, care produce team member and patient Staffing FOUNDER CEO & PRESIDENT: Ivette Brandt APRN.FOUNDER CEO & PRESIDENT Performed by: FOUNDER CEO & PRESIDENT Indications and Patient Condition Indications for airway management: anesthesia Preoxygenated: yes anesthesia circuit Patient position: sniffing Method: asleep Difficult Mask: No Final Airway Details Final airway type: endotracheal airway Final Endotracheal Airway: ETT Cuffed: yes Successful intubation technique: direct laryngoscopy Devices used: intubating stylet Endotracheal tube insertion site: oral Blade: Vannessa Blade size: #4 ETT size (mm): 7.0 Measured from: lips Measurement (cm): 20 Placement verified by: chest auscultation and capnometry Cormack-Lehane Classification: grade I - full view of glottis Number of attempts at approach: 1 Airway not difficult Comments Atraumatic intubation SIGNATURE: Ivette Brandt APRN.CRNA PATIENT NAME: Pranav Kemp DATE: July 02, 2022 TIME: 2:43 PM CSN: [id number] NoteHNO ID: [id number] Author: Carrie Perez RN Service: Care Management Author Type: Registered Nurse Type: Care Mgt Initial Assessment Filed: 07/02/2022 1:04 PM Note Text: CARE MANAGEMENT: ASSESSMENT AND DISCHARGE PLAN SERVICE DATE: July 02, 2022 SERVICE TIME: 12:17pm PRIMARY CARE PHYSICIAN: Yesica Mcguire MD Primary Contact: Extended Emergency Contact Information Primary Emergency Contact: Cash Kemp [place] Relation: Spouse ADMISSION STATUS: Inpatient Insurance Provider: [employer] PPO NEEDS PRIOR TO DISCHARGE Needs Prior to Discharge: To Be Determined POTENTIAL TRANSITION PLANS No Services Indicated Based on clinical judgement, Care Management will address the following needs: Medical Patient's perception of need for this admission: surgery ADVANCE DIRECTIVES Current Advance Directive: None Graduate Student Instructor Attempted to Assist with AD Completion: Yes Action: Patient Unwilling MS/BEHAVIOR Baseline Mental Status Prior to this Illness what was the patient's Baseline Mental Status?: Alert AND Oriented Prior to this illness, has anyone described the patient having any of the following behaviors?: Not Applicable Relationship of the informant to the patient:: Self READMISSION Last Discharge Date: N/A Is this Within the Past 30 days? 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 scores in the EMR?: No Any potential risks related to substance abuse and/or behavioral health?: No Based on clinical judgement, Care Management will address the following needs: Medical CAREGIVER ASSESSMENT Caregiver is ready, willing and able to meet the patient's needs as recommended by the inter-professional team:: No Caregiver needed MEDICAL Medical Needs: Two or more chronic diseases Health Issues Impacting Discharge Plan: Chronic Chronic: asthma, breast cancer, HTN Medication Adherance I am convinced of the importance of my prescription medication: 0 - Agree Completely I worry that my prescription medication will do more harm than good to me : 0 - Disagree Completely I feel financially burdened by my red-[id number]-mohpef expenses for my prescription medication:: 0 - Disagree Completely Risk Score: 0 Patient is categorized as: Low risk < 2 No social discharge barriers identified at this time. No behavioral/cognitive discharge barriers identified at this time. No functional discharge barriers identified at this time. FREEDOM OF CHOICE EXPLAINED: [place] of Choice Given: No Are you interested in bedside delivery of your medications? No Is Patient Psychosocially Complex?: No ASSESSMENT AND PLAN: Pt was transferred from [facility]. Pt is independent CONSTRUCTION MANAGER, drives, is retired, lives with who can assist at d/c. No skilled needs noted at this time. [facility] Spouse will provide dc transportation. CM will follow. SIGNATURE: Carrie Perez RN PATIENT NAME: Pranav Kemp DATE: July 02, 2022 TIME: 12:17 PM CONTACT #: [phone] [id number] History of Past illness Narrative* Problem Noted Date Resolved Date Choledocholithiasis 07/02/2022 07/02/2022 documented as of this encounter (statuses as of 07/03/2022) [facility] History of Past illness Narrative* Problem Noted Date Resolved Date Choledocholithiasis 07/02/2022 07/02/2022 documented as of this encounter (statuses as of 07/17/2022) [facility] History of Past illness Narrative* Problem Noted Date Resolved Date Choledocholithiasis 07/02/2022 07/02/2022 documented as of this encounter (statuses as of 07/24/2022) [facility] of Past illness Narrative* Problem Noted Date Resolved Date Choledocholithiasis 07/02/2022 07/02/2022 documented as of this encounter (statuses as of 09/10/2022) [address]08-2022 History of Past illness Narrative* Problem Noted Date Resolved Date Choledocholithiasis 07/02/2022 07/02/2022 documented as of this encounter (statuses as of 09/14/2022) [address]08-2022 History of Past illness Narrative* Problem Noted Date Resolved Date Choledocholithiasis 07/02/2022 07/02/2022 documented as of this encounter (statuses as of 12/15/2022) [address]08-2022 History of Past illness Narrative* Problem Noted Date Resolved Date Choledocholithiasis 07/02/2022 07/02/2022 documented as of this encounter (statuses as of 01/22/2023) [address]08-2022 History of Past illness Narrative* Problem Noted Date Resolved Date Choledocholithiasis 07/02/2022 07/02/2022 documented as of this encounter (statuses as of 01/22/2023) [address]08-2022 History of Past illness Narrative* Problem Noted Date Diagnosed Date Resolved Date Choledocholithiasis 07/02/2022 07/02/20 22 documented as of this encounter (statuses as of 07/07/2023) [facility] of Past illness Narrative* Problem Noted Date Diagnosed Date Resolved Date Choledocholithiasis 07/02/2022 07/02/20 22 documented as of this encounter (statuses as of 07/31/2023) [address]08-2022 History of Past illness Narrative* Problem Noted Date Diagnosed Date Resolved Date Choledocholithiasis 07/02/2022 07/02/20 22 documented as of this encounter (statuses as of 12/22/2023) [address]08-2022 History of Past illness Narrative* Problem Noted Date Diagnosed Date Resolved Date Choledocholithiasis 07/02/2022 07/02/20 22 documented as of this encounter (statuses as of 02/04/2024) [facility] NoteHNO ID: [id number] Author: Clyde Hazel MD Service: General Surgery Author Type: Physician Type: Plan of Care Filed: 07/02/2022 2:22 PM Note Text: GENERAL SURGERY PLAN OF CARE NOTE Pranav Kemp [id number] ASSESSMENT AND PLAN Pranav Kemp is a 66 year old female patient with history of history of HTN, 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 OSH labs remarkable for no leukocytosis and mild transaminitis (AST 192, ALT 191, T bili 1.7). RUQ ultrasound showing evidence of cholelithiasis and CBD dilation to 10 mm. On arrival, repeat labs demonstrated normalization of LFTs (AST 46 ALT 123, ALP 115 and T bili 0.4). Will plan for laparoscopic cholecystectomy w/ IOC. Plan - OR today for lap doreen w/ IOC - Continue NPO - Type AND screen active, coags wnl - Consent obtained Discussed with Dr. Farias Carolina Lofton MD General Surgery, PGY-2 For Nights and Weekends, please page the On-call Surgery pager: [phone] I saw and evaluated the patient. Discussed with the resident and agree with resident's findings and plan as documented in the resident's note. I saw the patient in the preoperative holding area. Questions answered. Risks and benefits discussed. Will plan on lap doreen with IOC. Pranav Hazel MDWorcester Recovery Center And [id number] Miscellaneous Notes* Telephone Encounter - Gisselle Jones - 05/25/2022 3:02 PM EDT Patient wants [facility] to [facility] and a year script sent to [facility]. Gisselle Jones documented in this encounterHigh[facility]07-29-[facility]22 History of Present illness Narrative* Andrea Miller MD - 05/22/2022 2:11 PM EDT Images from the original note were not included. NAME: Pranav Kemp [facility] NO.: [id number] DATE OF SERVICE: May 22, 2022 Some elements in this clinic note that are critical to medical decision making have been carefully reviewed and included from a prior clinic note dated: November 13, 2021 Referring Provider: Jevon Patterson Additional Clinicians involved in Pranav Kemp's care: Dr. Silva, Carolina Cope CC: Follow-up for breast cancer. 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 Initial diagnosis 2020-11-25, left breast lumpectomy 2020-12-25. ER/NV both strongly positive grade 2, cribriform pattern. She has completed radiation and is on hormone suppression. PLAN: 1. Start Multi-Vitamin and Biotin 2. RTC with me in 6-7 months with labs same day. Coordinate with Dr. Silva's visit 3. Continue Tamoxifen TREATMENT TO DATE: 3. 04/02/2021 - current: Tamoxifen anticipated for 5 years. 2. 02/24/2021 03/25/2021: Left breast radiation 4256 cGy in 16 fractions with boost of 1000 cGy in 4. 1. 01/21/2021: Left breast lumpectomy. HPI: Updated Visit, May 22, 2022: Continues to do very well with tolerance to Tamoxifen. Rash on abdomen - pale and slightly pinkish. She states she gets these often. And right forearm Mammography from November noted to be benign. Updated Visit, November 13, 2021: Pranav returns with her Cash, she is doing well on current chemoprevention endocrine therapywith tolerable AE's. Mammogram of left breast will be due in 1 month., She is concerned with Tamoxifen and ophthalmologic changes which Dr. Cope is evaluating. Updated Visit, August 14, 2021: Pranav returns with her Cash for left breast DCIS. In May she had her left diagnostic mammogram which was diagnostic category 3 with changes likely consistent with postsurgical and radiation changes. The recommended follow up mammogram in 6 months. Chaperoned Breast Exam showed typical radiation changes on left. Right breast is normal. Aside from occasional hot flashes, she is tolerating tamoxifen well. Updated Visit, May 14, 2021: Neris is 65 years old and returns specimen Cash for follow-up on tamoxifen in the adjuvant setting for DCIS. She still has some irritation in her left axilla and also has intermittent arthralgias butonly last a day or 2. She is otherwise without complaints. She very kindly brought in some of her famous chocolate chip oatmeal cookies. Updated Visit, April 02, 2021: Pranav returns after completing RT on 03/25/2021 for left breast DCIS s/p resection 12/25/2020. We discussed adjuvant endocrine therapy with regards to AI or SERM. She will start on Tamoxifen. History of varicose veins - discussed potential for DVT's. Discussed risk of uterine Ca but she has had a hysterectomy. Initial Visit, February 05, 2021: Pranav Kemp presents today Hematology and Oncology evaluation. She is a 65 year old female who ishere with Cash for a recent diagnosis and resection of a left breast DCIS with lumpectomy. Found left breast mass on routine mammographyof health screening. In October 2020. On 2020-11-19 she underwent a left diagnostic digital mammogram and ultrasound. This was followed by an ultrasound guided biopsy of the left breast on 2020-11-25. Pathology reported a complex papillary lesion with foci of ductal carcinoma in situ, cribriform type, nuclear grade 2 ER and NV both greater than 95%. She then underwent 2020-12-25 left breast lumpectomy of 11 o'clock position and 7 o'clock position as well as excision of inclusion cyst mid chest. Axillary nodes were unable to be found through tracer studies. Final diagnosis primary tumor pTis (DCIS). Margins were negative. Left breast lesion at 11 o'clock position consistent with residual complex papillary lesion with small foci of ductal carcinoma in situ, cribriform pattern, nuclear grade 2. Left breast lesion 7 o'clock position excision consistent with breast current parenchyma with usual ductal hyperplasia scleros ing adenosis. She developed a seroma post procedurally following her ultrasound-guided biopsy. This is notable onexam and is yet to resolve. She has been referred for medical oncology opinion and ongoing follow-up as well as radiation oncology for consolidation. She will need adjuvant hormone suppression. REVIEW OF SYSTEMS Per HPI and otherwise negative by full review of organ systems. ECOG PERFORMANCE STATUS: 0 PHYSICAL EXAMINATION: Vitals: BP 165/52 Pulse 81 Temp (Src) 97.4 (Temporal) Resp 16 Ht 5' 5.984 (1.68m) Wt 189lb 6.4 oz (85.9kg) SpO2 99% BMI 30.58 kg/(m^2). Body surface area is 2 meters squared. General:This is an age-appropriate patient in no acute distress. Head: Atraumatic, symmetric with no lesions visible. Eyes: Pupils equally round and reactive to light, extraocular muscles intact. Neck: Supple Mouth: Mucous membranes are moist, no thrush is noted. Lungs: Clear to auscultation bilaterally with no wheezes crackles or rales. Cardiovascular: Regular rate and rhythm with no murmurs or gallops. Peripheral pulses: Normal. Gastrointestinal: Soft, nontender, normoactive bowel sounds, with no appreciable hepatosplenomegaly. Musculoskeletal: No appreciable bony abnormalities or tenderness. Extremities: Lower extremities without edema. Neurologic: Nonfocal to gross visualization. Alert and oriented 3. Psychiatric: No evidence of inappropriate anxiety or depression. Skin: No overt rashes wounds or petechiae except as noted in HPI 05/22/2022 Lymph node exam: No appreciable lymphadenopathy in cervical supraclavicular or axillary lymph node chains. Chaperoned breast examination she has some retained fluid on exam and unchanged inverted nipple following the surgery with further contraction consistent with post radiation skin changes and hilton. otherwise benign exam. Right breast is without abnormalities. ALLERGIES: ALLERGIES Allergen Reactions Acetaminophen-Codei* Rash, Hives Berries Rash Ciprofibrate Unknown Ciprofloxacin Hives Codeine Unknown Grape GI Upset Keflex [Cephalexin] Hives, Itching Kenalog-H Other: See Comments Blood clots Latex Hives Montelukast Unknown Mushroom Rash Naproxen Mental Status Change Neomycin-Bacitracin* Unknown Novacaine [Procaine] Mental Status Change Peanuts Mental Status Change Shellfish Derived Mental Status Change Strawberries Rash Sulfa (Sulfonamide * Rash, Hives Tree Nut Mental Status Change Triamcinolone Unknown MEDICATIONS: losartan (COZAAR) 25 mg tablet Take 25 mg by mouth once daily. tamoxifen (NOLVADEX) 20 mg tablet Take 1 tablet (20 mg) by mouth once daily. loratadine (CLARITIN ORAL) Take by mouth. albuterol HFA (PROVENTIL HFA, VENTOLIN HFA) 90 mcg/actuation inhaler Inhale as instructed. LABORATORY VALUES: WBC (k/uL) Date Value 05/22/2022 7.02 RBC (m/uL) Date Value 05/22/2022 3.98 Hemoglobin (g/dL) Date Value 05/22/2022 12.6 Hematocrit (%) Date Value 05/22/2022 37.7 MCV (fL) Date Value 05/22/2022 94.7 MCH (pg) Date Value 05/22/2022 31.7 MCHC (g/dL) Date Value 05/22/2022 33.4 RDW-CV (%) Date Value 05/22/2022 11.9 Platelet Count (k/uL) Date Value 05/22/2022 269 MPV (fL) Date Value 05/22/2022 8.9 (L) Glucose (mg/dL) Date Value 05/22/2022 92 BUN (mg/dL) Date Value 05/22/2022 14 Creatinine (mg/dL) Date Value 05/22/2022 0.92 Sodium (mmol/L) Date Value 05/22/2022 137 Potassium (mmol/L) Date Value 05/22/2022 3.8 Chloride (mmol/L) Date Value 05/22/2022 103 CO2 (mmol/L) Date Value 05/22/2022 27 Protein, Total (g/dL) Date Value 05/22/2022 6.2 (L) Albumin (g/dL) Date Value 05/22/2022 3.8 (L) Calcium, Total (mg/dL) Date Value 05/22/2022 9.0 Alkaline Phosphatase (U/L) Date Value 05/22/2022 50 Bilirubin, Total (mg/dL) Date Value 05/22/2022 0.2 AST (U/L) Date Value 05/22/2022 13 ALT (U/L) Date Value 05/22/2022 13 DIAGNOSIS: (C50.912, Z17.0) Malignant neoplasm of left breast in female, estrogen receptor positive, unspecified site of breast (HCC) (primary encounter diagnosis) Plan: CBC + DIFF, COMP METABOLIC PANEL (D05.12) Ductal carcinoma in situ (DCIS) of left breast Plan: CBC + DIFF, COMP METABOLIC PANEL PAST MEDICAL HISTORY Diagnosis Date Asthma DCIS (ductal carcinoma in situ) 2020 Varicose veins of both lower extremities PAST SURGICAL HISTORY Procedure Laterality Date BREAST LUMPECTOMY HX Left 2020 HYSTERECTOMY HX 1989 PAST SURGICAL HISTORY OF Bilateral 06/10/2012 Laser iridotomy REPAIR ELBOW FRACTURE VEIN SURGERY (SPECIFY LOCATION) HX Dr. John Das Social History Tobacco Use Smoking status: Former Smoker Quit date: 06/03/1986 Years since quittin.9 Smokeless tobacco: Never Used Substance Use Topics Alcohol use: Not Currently Comment: Socially Drug use: No FAMILY HISTORY Problem Relation Age of Onset Alzheimer's Disease Mother Cataract Father Glaucoma Father other (esophageal cancer) Father other (stomach cancer) Father I spent a total of 30 minutes on the date of the service which included preparing to see the patient, [id number] patient care, completing clinical documentation, obtaining and/or reviewing separately obtained history, performing a medically appropriate examination, counseling and educating the pat ient/family/caregiver and ordering medications, tests, or procedures. Andrea Miller MD, CPE Hematology and Oncology Services Provided at: [place], [place] CC: Jevon Patterson MD (Dr) [id number] [facility] [id number] Yesica Mcguire MD [facility] [facility] [id number] documented in this encounterHighland [facility] Hospital07-22-2022 Miscellaneous Notes* Telephone Encounter - Makayla Harrell - 05/15/2022 10:[address] labs if needed. Makayla Harrell documented in this encounterHighland [facility] Hospital04-01-2022 History of Present illness Narrative* Carolina Cope, OD - 01/23/2022 2:56 PM EDT (Z79.810) Long-term current use of tamoxifen (primary encounter diagnosis) Plan: OCT MACULA CIRRUS OU (BOTH EYES) - Discussed. Normal fundus exam. Monitor 6 months dilated fundus exam / OCT (H40.033) Anatomical narrow angle, bilateral (Z98.890) History of bilateral YAG laser iridotomy Plan: - Patent PI. Monitor (H35.032) Hypertensive retinopathy of left eye Plan: - Started on losartan. Home bp readings are good per patient. I have confirmed and edited as necessary the relevant ophthalmic history, ROS, and the neuro exam findings as obtained by others. I have seen and examined Pranav Kemp. I also have reviewed and agree with the assessment and plan as stated above and agree with all of its relevant components. Carolina Cope OD [facility] [place] [facility]* Diagnosis Long-term current use of tamoxifen- Primary [facility] [place] [facility]* Diagnosis Long-term current use of tamoxifen- Primary Anatomical narrow angle, bilateral History of bilateral YAG laser iridotomy Hypertensive retinopathy of left eye Hypertensive retinopathy documented in this encounter [facility] [place] noteNo assessment [facility] Work Phone: evaluation note* Diagnosis Malignant neoplasm of left breast in female, estrogen receptor positive, unspecified site of breast (HCC)- Primary documented [facility] this encounter [facility] [place] [facility]* Diagnosis Malignant neoplasm of left breast in female, estrogen receptor positive, unspecified site of breast (HCC)- Primary Ductal carcinoma in situ (DCIS) of left breast documented [facility] this encounter [facility] [place] [facility]* Diagnosis Ductal carcinoma in situ (DCIS) of left breast documented in this encounter [facility] [place] [facility]* Diagnosis Ductal carcinoma in situ (DCIS) of left breast documented in this encounter [facility] [place] [facility]* Diagnosis Onset Date Resolution Status Choledocholithiasis with cholecystitis [facility] Work Phone: evaluation note* Diagnosis Encounter for removal of biliary stent- Primary Esophagitis Esophagitis, unspecified documented in this encounter [facility] [place] [facility]* Diagnosis S/P laparoscopic cholecystectomy- Primary Other postprocedural status documented in this encounter [facility] [place] [facility]* Diagnosis Long-term current use of tamoxifen- Primary documented [facility] this encounter [facility] [place] [facility]* Diagnosis Gastroesophageal reflux disease without esophagitis- Primary Esophageal reflux documented [facility] this encounter [facility] [place] [facility]* Diagnosis Long-term current use of tamoxifen- Primary Encounter for long-term (current) use of high-risk medication Encounter for long-term (current) use of other medications documented in this encounter [facility] note* Diagnosis Ductal carcinoma in situ (DCIS) of left breast- Primary documented in this encounter [facility] note* Diagnosis Encounter for long-term (current) use of high-risk medication- Primary Encounter for long-term (current) use of other medications Combined forms of age-related cataract of both eyes Other and combined forms of senile cataract Hyperopia with astigmatism and presbyopia, bilateral Anatomical narrow angle, bilateral History of bilateral YAG laser iridotomy documented in this encounter [facility] note* Diagnosis Ductal carcinoma in situ (DCIS) of left breast- Primary documented in this encounter [facility] note* Diagnosis Ductal carcinoma in situ (DCIS) of left breast documented in this encounter [facility] note* Diagnosis Onset Date Resolution Status Sinusitis, acute maxillary a [facility] Work Phone: Evaluation note* Diagnosis Onset Date Resolution Status Chronic GERD acute Essential hypertension acute Sinusitis, acute maxillary a [facility] Work Phone: Evaluation note* Diagnosis Onset Date Resolution Status Chronic GERD acute Essential hypertension acute Sinusitis, acute maxillary a cute Chest discomfort acute [facility] Work Phone: Evaluation note* Diagnosis Ductal carcinoma in situ (DCIS) of left breast- Primary documented in this encounter [facility] note* Diagnosis Ductal carcinoma in situ (DCIS) of left breast documented in this encounter [facility] note* Diagnosis Combined forms of age-related cataract of both eyes- Primary Other and combined forms of senile cataract Encounter for long-term (current) use of high-risk medication Encounter for long-term (current) use of other medications Hyperopia with astigmatism and presbyopia, bilateral Anatomical narrow angle, bilateral History of bilateral YAG laser iridotomy documented in this encounter [facility] note* Diagnosis Onset Date Resolution Status Chest discomfort acute [facility] Work Phone: Evaluation note* Diagnosis Onset Date Resolution Status UTI (urinary tract infection) acute [facility] Work Phone: History general Narrative - Reported* Type Description Date Medical History Family history of diabetes fortunatoi rodney Medical History Superficial phlebitis and thromb ophlebitis of left leg Medical History Breast cancer, left Medical History Essential hypertension Medical History Elevated blood pressure Medical History BREAST INFLAMMATION Surgical History LAP DOREEN 2021 Surgical History PARTIAL MASTECTOMY X3 Hospitalization History SEE SURGICAL HX [place] Other Reason for referral (narrative)* Outpatient Procedure (Routine) - Pending Review Specialty Diagnoses / Procedures Referred By Ellen grant Referred To Contact [facility] Diagnoses Esophagitis Procedures EGD DIAGNOSTIC ESOPHAGOGASTRODUODENOSC OPY TRANS[place]AL [place] [address] [place] [address] [address] Referral ID Status Reason Start Date Expiration Date Visits Requested Visits Authorized [id number] Pending Review Auto-Generat ed Referral 07/03/2022 07/03/2023 1 1 * Outpatient Procedure (Routine) - Pending Review Specialty Diagnoses / Procedures Referred By Ellen grant Referred To Contact [facility] Diagnoses Encounter for removal of biliary stent Procedures ERCP ERCP REMOVE FOREIGN BODY/STENT BILIARY/[place] [address] [place] [address] [address] Referral ID Status Reason Start Date Expiration Date Visits Requested Visits Authorized [id number] Pending Review Auto-Generat ed Referral 07/03/2022 07/03/2023 1 1 [facility] for referral (narrative)* Diagnostic Procedure Only (Routine) - Pending Review Specialty Diagnoses / Procedures Referred By Ellen t Referred To Contact [facility] Diagnoses Ductal carcinoma in situ (DCIS) of left breast Procedures [facility] DIAGNOSTIC BILATERAL DIAGNOSTIC MAMMOGRAPHY COMPUTER-AIDED DETCJ Fauzia Mojica MD [address] [place] [address] [place] [address] [facility] [address] [place] [address] Referral ID Status Reason Start Date Expiration Date Visits Requested Visits Authorized [id number] Pending Review Auto-Generat ed Referral 12/22/2024 01/20/2025 1 1 [facility] Chief Complaint and Reason for Visit Chief Complaint CBC Chief Complaint Vomiting blood Reason for Visit Choledocholithiasis with cholecystitis Chief Complaint sinus pressure Reason for Visit Sinusitis, acute max illary Chief Complaint sinus pressure CBC Reason for Visit Chronic GERD Essential hypertension Sinusitis, acute maxillary Chief Complaint sinus pressure CBC discussion Reason for Visit Chronic GERD Essential hypertension Sinusitis, acute maxillary Chest discomfort Chief Complaint discussion UA, buring, pressure Reason for Visit Chest discomfort Chief Complaint UA, buring, pressure UA, recheck still burning Reason for Visit UTI (urinary tract i nfection) Chief Complaint UA, buring, pressure n39 UA, recheck still burning CC Adult Risk Stratification uti, still having symptoms Reason for Visit UTI (urinary tract i nfection) Advance Directives Advance Directive Response Recorded Date/ Time Advance Directives No January 19, 022 2:47pm Advance Directive Response Recorded Date/ Time Advance Directives No June 6:12pm Advance Directive Response Recorded Date/ Time Advance Directives No June 5:12pm Summary Purpose Family History Relationship Condition Age at Onset Recorded Date/T kristal father Diabetes mellitus Unknown Hypertension Unknown Malignant neoplasm Unknown Heart disease Unknown Additional Source Comments Source Comments (unrecognize d section and content) In the event this informatio n is protected by the Federal Confidentiality of Alcohol and Drug Abuse Patient Records regulations: The Federal rules restrict any use of the information to criminally investigate or prosecute any alcohol or drug abuse patient.[facility] HospitalIn the event this information is protected by the Federal Confidentiality of Alcohol and Drug Abuse Patient Records regulations: The Federal rules restrict any use of the information to criminally investigate or prosecute any alcohol or drug abuse patient.[facility] HospitalIn the event this information is protected by the Federal Confidentiality of Alcohol and Drug Abuse Patient Records regulations: The Federal rules restrict any use of the information to criminally investigate or prosecute any alcohol or drug abuse patient.[facility] HospitalIn the event this information is protected by the Federal Confidentiality of Alcohol and Drug Abuse Patient Records regulations: The Federal rules restrict any use of the information to criminally investigate or prosecute any alcohol or drug abuse patient.[facility] HospitalIn the event this information is protected by the Federal Confidentiality of Alcohol and Drug Abuse Patient Records regulations: The Federal rules restrict any use of the information to criminally investigate or prosecute any alcohol or drug abuse patient.[facility] HospitalIn the event this information is protected by the Federal Confidentiality of Alcohol and Drug Abuse Patient Records regulations: The Federal rules restrict any use of the information to criminally investigate or prosecute any alcohol or drug abuse patient.[facility] HospitalIn the event this information is protected by the Federal Confidentiality of Alcohol and Drug Abuse Patient Records regulations: The Federal rules restrict any use of the information to criminally investigate or prosecute any alcohol or drug abuse patient.[facility] HospitalIn the event this information is protected by the Federal Confidentiality of Alcohol and Drug Abuse Patient Records regulations: The Federal rules restrict any use of the information to criminally investigate or prosecute any alcohol or drug abuse patient.[facility] HospitalIn the event this information is protected by the Federal Confidentiality of Alcohol and Drug Abuse Patient Records regulations: The Federal rules restrict any use of the information to criminally investigate or prosecute any alcohol or drug abuse patient.[facility] HospitalIn the event this information is protected by the Federal Confidentiality of Alcohol and Drug Abuse Patient Records regulations: The Federal rules restrict any use of the information to criminally investigate or prosecute any alcohol or drug abuse patient.[facility] HospitalIn the event this information is protected by the Federal Confidentiality of Alcohol and Drug Abuse Patient Records regulations: The Federal rules restrict any use of the information to criminally investigate or prosecute any alcohol or drug abuse patient.[facility] HospitalIn the event this information is protected by the Federal Confidentiality of Alcohol and Drug Abuse Patient Records regulations: The Federal rules restrict any use of the information to criminally investigate or prosecute any alcohol or drug abuse patient.[facility] HospitalIn the event this information is protected by the Federal Confidentiality of Alcohol and Drug Abuse Patient Records regulations: The Federal rules restrict any use of the information to criminally investigate or prosecute any alcohol or drug abuse patient.[facility] HospitalIn the event this information is protected by the Federal Confidentiality of Alcohol and Drug Abuse Patient Records regulations: The Federal rules restrict any use of the information to criminally investigate or prosecute any alcohol or drug abuse patient.[facility] HospitalIn the event this information is protected by the Federal Confidentiality of Alcohol and Drug Abuse Patient Records regulations: The Federal rules restrict any use of the information to criminally investigate or prosecute any alcohol or drug abuse patient.[facility] HospitalIn the event this information is protected by the Federal Confidentiality of Alcohol and Drug Abuse Patient Records regulations: The Federal rules restrict any use of the information to criminally investigate or prosecute any alcohol or drug abuse patient.[facility] HospitalIn the event this information is protected by the Federal Confidentiality of Alcohol and Drug Abuse Patient Records regulations: The Federal rules restrict any use of the information to criminally investigate or prosecute any alcohol or drug abuse patient.[facility] HospitalIn the event this information is protected by the Federal Confidentiality of Alcohol and Drug Abuse Patient Records regulations: The Federal rules restrict any use of the information to criminally investigate or prosecute any alcohol or drug abuse patient.[facility] HospitalIn the event this information is protected by the Federal Confidentiality of Alcohol and Drug Abuse Patient Records regulations: The Federal rules restrict any use of the information to criminally investigate or prosecute any alcohol or drug abuse patient.[facility] HospitalIn the event this information is protected by the Federal Confidentiality of Alcohol and Drug Abuse Patient Records regulations: The Federal rules restrict any use of the information to criminally investigate or prosecute any alcohol or drug abuse patient.[facility] HospitalIn the event this information is protected by the Federal Confidentiality of Alcohol and Drug Abuse Patient Records regulations: The Federal rules restrict any use of the information to criminally investigate or prosecute any alcohol or drug abuse patient.[facility] Care Teams (unrecognized sec tion and content) Team Status: Active Member Role Status Dates Yesica Mcguire MD Primary Care Provider Active Team Status: Active Member Role Status Dates Yesica Mcguire MD Primary Care Provider Active Start: July 28, 2024 Andrea Miller MD Attending Provider Active Start: July 28, 2024 Team Status: Inactive Member Role Status Dates Yesica Mcguire MD Primary Care Provider Active Start: August 15, 2024 End: August 15, 2024 Mark Sexton DO Attending Provider Active Sta rt: August 15, 2024 End: August 15, 2024 Team Status: Inactive Member Role Status Dates Yesica Mcguire MD Attending Provider Active St art: August 22, 2024 End: August 22, 2024 Team Status: Inactive Member Role Status Dates Yesica Mcguire MD Primary Care Provide r, Attending Provider Active Start: August 22, 2024 End: August 22, 2024 Team Status: Active Member Role Status Dates Yesica Mcguire MD Attending Provider Active St art: August 23, 2024 Team Status: Inactive Member Role Status Raoul Mcguire MD Primary Care Provide r, Attending Provider Active Start: August 29, 2024 End: August 29, 2024 Team Status: Active Member Role Status Dates Yesica Mcguire MD Primary Care Provider Active Team Status: Inactive Member Role Status Dates Yesica Mcguire MD Primary Care Provide r, Attending Provider Active Start: April 10, 2024 End: April 10, 2024 [employer] Relationship Specialty Start Date End Date Yesica Mcguire MD PCP - General Family Practice 06/03/15 [employer] Relationship Specialty Start Date End Date Yesica Mcguire MD PCP - General Family Practice 06/03/15 Team Status: Inactive Member Role Status Dates Yesica Mcguire MD Primary Care Provider Active [employer] Attending Provider Active [employer] Relationship Specialty Start Date End Date Yesica Mcguire MD PCP - General Family Practice 06/03/15 [employer] Relationship Specialty Start Date End Date Yesica Mcguire MD PCP - General Family Practice 06/03/15 [employer] Relationship Specialty Start Date End Date Yesica Mcguire MD PCP - General Family Practice 06/03/15 Team Status: Active Member Role Status Dates Yesiac Mcguire MD Primary Care Provider Active Chica Duenas Jr, MD Emergency Provider Active Edgar Bach MD Admit Provider, Attending Steve potter Active [employer] Relationship Specialty Start Date End Date Yesica Mcguire MD PCP - General Family Practice 06/03/15 [employer] Relationship Specialty Start Date End Date Yesica Mcguire MD PCP - General Family Medicine 06/03/15 [employer] Relationship Specialty Start Date End Date Yesica Mcguire MD PCP - General Family Medicine 06/03/15 [employer] Relationship Specialty Start Date End Date Yesica Mcguire MD PCP - General Family Medicine 06/03/15 [employer] Relationship Specialty Start Date End Date Yesica Mcguire MD PCP - General Family Medicine 06/03/15 [employer] Relationship Specialty Start Date End Date Yesica Mcguire MD PCP - General Family Medicine 06/03/15 [employer] Relationship Specialty Start Date End Date Yesica Mcguire MD PCP - General Family Medicine 06/03/15 [employer] Relationship Specialty Start Date End Date Yesica Mcguire MD PCP - General [facility] Medicine 06/03/15 [employer]iller Relationship Specialty Start Date End Date Yesica Mcguire MD PCP - [facility] Medicine 06/03/15 Team Status: Inactive Member Role Status Dates Yesica Mcguire MD Primary Care Provider Active Start: May 13, 2024 End: May 13, 2024 [facility] Attending Provider Active Sta rt: May 13, 2024 End: May 13, 2024 Team Status: Inactive Member Role Status Dates Yesica Mcguire MD Primary Care Provide r, Attending Provider Active Start: May 22, 2024 End: May 22, 2024 [employer] Relationship Specialty Start Date End Date Yesica Mcguire MD PCP - [facility] Medicine 06/03/15 [employer] Relationship Specialty Start Date End Date Yesica Mcguire MD PCP - [facility] Medicine 06/03/15 Team Status: Active Member Role Status Dates Yesica Mcguire MD Primary Care Provider Active Start: July 28, 2024 Andrea Miller MD Attending Provider Active Start: July 28, 2024 Team Status: Inactive Member Role Status Dates Yesica Mcguire MD Primary Care Provider Active Start: August 15, 2024 End: August 15, 2024 Mark Sexton DO Attending Provider Active Sta rt: August 15, 2024 End: August 15, 2024 Team Status: Active Member Role Status Dates Yesica Mcguire MD Attending Provider Active St art: August 22, 2024 Team Status: Inactive Member Role Status Dates Yesica Mcguire MD Primary Care Provide r, Attending Provider Active Start: August 22, 2024 End: August 22, 2024 Team Status: Inactive Member Role Status Dates Yesica Mcguire MD Attending Provider Active St art: August 22, 2024 End: August 22, 2024 Team Status: Active Member Role Status Dates Yesica Mcguire MD Attending Provider Active St art: August 23, 2024 Team Status: Inactive Member Role Status Dates Yesica Mcguire MD Primary Care Provide r, Attending Provider Active Start: August 29, 2024 End: August 29, 2024 Reason for Visit (unrecogniz ed section and content) Reason Comments Anatomical narrow angle Monitor current high risk meds Tamoxifen , due for DFE, OCT Reason Comments Results Reason Comments Breast Cancer 6 month follow up Reason Onset Date Comments Refill Request 05/25/2022 Reason Onset Date Comments Orders 07/03/2022 Reason Comments Post Op Reason Onset Date Comments Refill Request 09/14/2022 Reason Comments Established Patient Follow-Up 3 month Reason Comments DCIS 6 month follow up Reason Comments Monitor current high risk meds Long-term current use of tamoxifen Reason Comments Breast Cancer Reason Comments Tamoxifen RX Reason Comments Lab Orders Reason Comments Breast Cancer Reason Comments Monitor current high risk meds Goals (unrecognized section and content) Goals may be documented in a n alternate sectionGoals may be documented in an alternate sectionNo InformationGoals may be documented in an alternate sectionGoals may be documented in an alternate sectionGoals may be documented in an alternate sectionGoals may be documented in an alternate sectionGoals may be documented in an alternate sectionGoals may be documented in an alternate sectionGoals may be documented in an alternate section INFORMATION SOURCE (unrecogn ized section and content) DATE CREATED AUTHOR 09/11/2022 [facility] DATE CREATED AUTHOR AUTHOR'S ORGANIZ ATION 12/20/2022 [facility] DATE CREATED AUTHOR AUTHOR'S ORGANIZ ATION 08/01/2024 [facility] DATE CREATED AUTHOR AUTHOR'S ORGANIZ ATION 08/24/2024 [facility] FOR RECORDS PERTAINING TO PATIENTS WHO ARE OR HAVE BEEN ENROLLED IN A CHEMICAL DEPENDENCY/SUBSTANCEABUSE PROGRAM, SOME INFORMATION MAY BE OMITTED. This clinical summary was aggregated from multiple sources. Caution should be exercised in using it in the provision of clinical care. This summary normalizes information from multiple sources, and as a consequence, information in this document may materially change the coding, format and clinical context of patient data. In addition, data may be omitted in some cases. CLINICAL DECISIONS SHOULD BE BASED ON THE PRIMARY CLINICAL RECORDS. [employer] [facility]. provides no warranty or guarantee of the accuracy or completeness of information in this document.
== END 2024-09-11 15:00 | disposition home or self-care (01) ==
LOC: RAD 15:02
PROVIDERS: PCP Family Medicine; Visit Provider Family Medicine
DX: R10.9 Unspecified abdominal pain (principal); Z87.442 Personal history of urinary calculi
CPT/HCPCS: 74018